=== PATIENT | female | born 1930 | race Hispanic/Latino ===

== ENCOUNTER 2017-08-13 12:59 | Inpatient (IN) | payer MEDICARE, OTHER ==
[2017-08-13] MEDS ORDERED: Albuterol-Ipratrop 3 mg / 0.5 (3 ml) UD IH STA ×4 (13:46→15:43)
[2017-08-13 15:00] LABS: VENOUS BLOOD GAS BASE EXCESS 1.9 mmol/L (0.0-2.0); VENOUS BLOOD GAS PO2 39 mm/Hg (30-55); VENOUS BLOOD PH 7.26 (7.32-7.43)
[2017-08-13 15:01] LABS: BASO # 0.05 K/mm3 (0.0-2.0); BASO % 0.6 % (0.0-3.0); EOS # 0.5 (0.0-0.7); GRAN # 3.79 (1.4-6.5); GRAN % 46.4 % (50.0-68.0); HEMOGLOBIN 12.9 g/dL (12.0-16.0); LYMPH # 3.2 (1.2-3.4); LYMPH % 38.7 % (22.0-35.0); MEAN CELL VOLUME 96.6 fl (80.0-105.0); MEAN CORPUSCULAR HEMOGLOBIN 31.7 pg (25.0-35.0); MEAN CORPUSCULAR HGB CONC 32.8 g/dl (31.0-37.0); MEAN PLATELET VOLUME 10.2 fl (7.0-11.0); MONO # 0.7 (0.1-0.6); MONO % 8.3 % (1.0-6.0); RBC 4.07 10^6/uL (3.5-6.1); RED CELL DISTRIBUTION WIDTH 14.2 % (11.5-14.5); WHITE BLOOD COUNT 8.2 10^3/ul (4.5-11.0)
--- NOTE | 2017-08-13 15:04 | CT ---
PROCEDURE: CT Chest without contrast HISTORY: shortness of breath/cough COMPARISON: None. TECHNIQUE: Contiguous axial images were obtained through the chest without intravenous contrast enhancement. Sagittal and coronal reconstructions were performed. Radiation dose (DLP): 347 mGy-cm. This CT exam was performed using one or more of the following dose reduction techniques: Automated exposure control, adjustment of the mA and/or kV according to patient size, and/or use of iterative reconstruction technique. FINDINGS: LUNGS: The lungs have a hyper expanded appearance with an increased AP diameter of the chest and flattening of the diaphragms. Findings consistent with COPD. Parenchymal scarring is seen in both lung apices MEDIASTINUM: Unremarkable thoracic aorta. No aneurysm. Normal sized heart. Main pulmonary artery unremarkable. No vascular congestion. No lymphadenopathy. PLEURA: No pleural fluid. No pneumothorax. BONES: No fracture. No destructive lesion. UPPER ABDOMEN: There is calcification of the gallbladder wall OTHER FINDINGS: None. IMPRESSION: The lungs have a hyper expanded appearance with an increased AP diameter of the chest and flattening of the diaphragms. Findings consistent with COPD. Parenchymal scarring is seen in both lung apices
[2017-08-13 15:09] LABS: ALB/GLOB RATIO 1.1 (1.1-1.8); ALBUMIN 3.9 g/dL (3.0-4.8); ALT/SGPT 22 U/L (7-56); AST/SGOT 25 U/L (14-36); BLOOD UREA NITROGEN 19 mg/dL (7-21); CALCIUM 9.4 mg/dL (8.4-10.5); GFR AFRICAN-AMERICAN > 60; GFR NON-AFRICAN AMERICAN 60
[2017-08-13 15:13] LABS: INR 1.08 (0.93-1.08); PROTHROMBIN TIME 12.3 SECONDS (9.4-12.5)
[2017-08-13 15:14] LABS: PARTIAL THROMBOPLASTIN TIME 28.9 Seconds (25.1-36.5)
[2017-08-13 15:21] LABS: B-TYPE NATRIURETIC PEPTIDE 304 pg/mL (0-450); TROPONIN I < 0.01 ng/mL
[2017-08-13] MEDS ORDERED: Azithromycin 500MG/NS 250ml 500 MG/250 ML BAG IVPB STA (15:43)
--- NOTE | 2017-08-13 16:04 | ED PDOC ---
Arrival/HPI - General Chief Complaint: Shortness Of Breath Time Seen by Provider: 08/13/17 13:45 Historian: Patient - History of Present Illness Narrative History of Present Illness (Text): 08/13/17 16:00 87yo female with Past medical history of hypertension, COPD present with 2days history of nonproductive cough and shortness of breath. the daughter by the bedside states patient used her inhaler yesterday with mild relieve. She denies fever, chills, sick contact, recent travel, LE edema, calf pain, nausea, abdominal pain. Past Medical History - Provider Review Nursing Documentation Reviewed: Yes - Infectious Disease Hx of Infectious Diseases: None - Reproductive Menopause: Yes - Cardiac Hx Cardiac Disorders: No - Pulmonary Hx Chronic Obstructive Pulmonary Disease (COPD): Yes Hx Emphysema: Yes - Endocrine/Metabolic Hx Hypothyroidism: Yes - Hematological/Oncological Hx Cancer: Yes - Psychiatric Hx Substance Use: No - Surgical History Hx Orthopedic Surgery: Yes - Anesthesia Hx Anesthesia: No Family/Social History - Physician Review Nursing Documentation Reviewed: Yes Family/Social History: Unknown Family HX Smoking Status: Unknown If Ever Smoked Hx Alcohol Use: No Hx Substance Use: No Allergies/Home Meds Allergies/Adverse Reactions: Allergies No Known Allergies Allergy (Verified 05/25/13 19:32) Home Medications: Home Meds Medication Instructions Recorded Confirmed Aspirin [Ecotrin] 81 mg PO DAILY 08/13/17 08/13/17 Atorvastatin [Lipitor] 20 mg PO DAILY 08/13/17 08/13/17 Cefuroxime Axetil [Cefuroxime] 500 mg PO 08/13/17 Clopidogrel [Plavix] 75 mg PO DAILY 08/13/17 08/13/17 Levothyroxine [Synthroid] 0.1 mg PO DAILY 08/13/17 08/13/17 Prednisone [[place]] 5 mg PO DAILY 08/13/17 08/13/17 Review of Systems - Physician Review All systems were reviewed & negative as marked: Yes - Review of Systems Constitutional: Normal Eyes: Normal ENT: Normal Respiratory: SOB, Cough, Wheezing. absent: Sputum Cardiovascular: Normal Gastrointestinal: Normal Genitourinary Female: Normal Musculoskeletal: Normal Skin: Normal Neurological: Normal Endocrine: Normal Hemo/Lymphatic: Normal Psychiatric: Normal Physical Exam Vital Signs Reviewed: Yes Vital Signs Temp Pulse Resp BP Pulse Ox 08/13/17 16:49 76 18 114/55 L 99 08/13/17 13:53 97.8 F 73 20 154/94 H 95 08/13/17 13:50 97.6 F 73 20 155/83 H 91 L Temperature: Afebrile Blood Pressure: Normal Pulse: Regular Respiratory Rate: Normal Appearance: Positive for: Well-Appearing, Non-Toxic, Comfortable Pain Distress: None Mental Status: Positive for: Alert and Oriented X 3 - Systems Exam Head: Present: Atraumatic, Normocephalic Pupils: Present: PERRL Extroacular Muscles: Present: EOMI Conjunctiva: Present: Normal Mouth: Present: Moist Mucous Membranes Neck: Present: Normal Range of Motion Respiratory/Chest: Present: Good Air Exchange, Wheezes (Diffuse expiratory wheeze), Rales (scattered). No: Respiratory Distress, Accessory Muscle Use, Decreased Breath Sounds, Retracting, Rhonchi, Tachypneic Cardiovascular: Present: Regular Rate and Rhythm, Normal S1, S2. No: Murmurs Abdomen: No: Tenderness, Distention, Peritoneal Signs Back: Present: Normal Inspection Upper Extremity: Present: Normal Inspection. No: Cyanosis, Edema Lower Extremity: Present: Normal Inspection. No: Edema Neurological: Present: GCS=15, CN II-XII Intact, Speech Normal Skin: Present: Warm, Dry, Normal Color. No: Rashes Psychiatric: Present: Alert, Oriented x 3, Normal Insight, Normal Concentration Medical Decision Making ED Course and Treatment: 08/13/17 20:31 Pt in Emergency department for stated history. She continue to wheeze in Emergency department after medication. Lab was unremarkable. EKG : sinus rhythm with 1st degree AV block @72bpm. Case was DW Dr. Chan, while he was in and saw pt by the bedside. He requested chest CT. Chest CT - COPD. Dr. Velasquez agrees with plan to admit pt. - Lab Interpretations Lab Results: 08/13/17 14:30 08/13/17 14:30 Lab Results 08/13/17 14:30: Sodium 146, Chloride 107, Potassium 3.9, Carbon Dioxide 30, Anion Gap 12, BUN 19, Creatinine 0.9, Est GFR ( Amer) > 60, Est GFR (Non- Af Amer) 60, Random Glucose 101, Calcium 9.4, Magnesium 1.7, Total Bilirubin 0.5 , AST 25, ALT 22, Alkaline Phosphatase 127 H, Lactate Dehydrogenase 504, Total Creatine Kinase 35, Troponin I < 0.01, NT-Pro-B Natriuret Pep 304, Total Protein 7.3, Albumin 3.9, Globulin 3.5, Albumin/Globulin Ratio 1.1 08/13/17 14:30: pO2 39, VBG pH 7.26 L, VBG pCO2 69.0 H*, VBG HCO3 31.0 H, VBG Total CO2 33.1 H, VBG O2 Sat (Calc) 72.2 H, VBG Base Excess 1.9, VBG Potassium 3.6, Sodium 141.0, Chloride 107.0, Glucose 104, Lactate 1.7, FiO2 21.0, Venous Blood Potassium 3.6 08/13/17 14:30: PT 12.3, INR 1.08, APTT 28.9 08/13/17 14:30: WBC 8.2, RBC 4.07, Hgb 12.9, Hct 39.3, MCV 96.6, MCH 31.7, MCHC 32.8, RDW 14.2, Plt Count 196, MPV 10.2, Gran % 46.4 L, Lymph % (Auto) 38.7 H, Ward % (Auto) 8.3 H, Eos % (Auto) 6.0 H, Baso % (Auto) 0.6, Gran # 3.79, Lymph # (Auto) 3.2, Ward # (Auto) 0.7 H, Eos # (Auto) 0.5, Baso # (Auto) 0.05 - RAD Interpretation Radiology Orders: 08/13/17 13:46 CHEST W/O CONTRAST [CT] Stat - Medication Orders Current Medication Orders: Albuterol/Ipratropium (Duoneb 3 Mg/0.5 Mg (3 Ml) Ud) 3 ml IH Q4H PRN PRN Reason: Shortness of Breath Albuterol/Ipratropium (Duoneb 3 Mg/0.5 Mg (3 Ml) Ud) 3 ml IH Q4H PRN PRN Reason: Wheezing Albuterol/Ipratropium (Duoneb 3 Mg/0.5 Mg (3 Ml) Ud) 3 ml IH [id number] [facility] Aspirin (Ecotrin) 81 mg PO DAILY [facility] Atorvastatin Calcium (Lipitor) 20 mg PO DIN DERICK Clopidogrel Bisulfate (Plavix) 75 mg PO DAILY [facility] Ceftriaxone Sodium (Rocephin 1 Gram Ivpb) 1 gm in 100 mls @ 100 mls/hr IVPB DAILY DERICK PRN Reason: Protocol Azithromycin (Zithromax 500mg In Ns) 500 mg in 250 mls @ 167 mls/hr IVPB DAILY DERICK PRN Reason: Protocol Levothyroxine Sodium (Synthroid) 100 mcg PO DAILY [facility] Methylprednisolone (Solu-Medrol) 40 mg IV Q8H DERICK Discontinued Medications Albuterol/Ipratropium (Duoneb 3 Mg/0.5 Mg (3 Ml) Ud) 3 ml IH STAT STA Stop: 08/13/17 13:47 Last Admin: 08/13/17 14:12 Dose: 3 ml Albuterol/Ipratropium (Duoneb 3 Mg/0.5 Mg (3 Ml) Ud) 3 ml IH STAT STA Stop: 08/13/17 13:49 Last Admin: 08/13/17 14:22 Dose: 3 ml Albuterol/Ipratropium (Duoneb 3 Mg/0.5 Mg (3 Ml) Ud) 3 ml IH STAT STA Stop: 08/13/17 14:33 Last Admin: 08/13/17 14:40 Dose: 3 ml Albuterol/Ipratropium (Duoneb 3 Mg/0.5 Mg (3 Ml) Ud) 3 ml IH STAT STA Stop: 08/13/17 15:44 Last Admin: 08/13/17 16:41 Dose: 3 ml Azithromycin (Zithromax 500mg In Ns) 500 mg in 250 mls @ 167 mls/hr IVPB STAT STA PRN Reason: Protocol Stop: 08/13/17 17:12 Last Admin: 08/13/17 16:41 Dose: 167 mls/hr eMAR Start Stop Document 08/13/17 16:41 LA (Rec: 08/13/17 16:41 LA [id number]) Intravenous Solution Start Date 08/13/17 Start Time 16:41 End Date 08/13/17 End time 18:11 Total Infusion Time 90 Methylprednisolone (Solu-Medrol) 125 mg IVP STAT STA Stop: 08/13/17 13:47 Last Admin: 08/13/17 14:31 Dose: 125 mg IVP Administration Document 08/13/17 14:31 LA (Rec: 05/16/18 14:35 OLIVIA [id number]) Charges for Administration # of IVP Administrations 1 Disposition/Present on Arrival - Present on Arrival Any Indicators Present on Arrival: No History of DVT/PE: No History of Uncontrolled Diabetes: No Urinary Catheter: No History of Decub. Ulcer: No History Surgical Site Infection Following: None - Disposition Have Diagnosis and Disposition been Completed?: Yes Diagnosis: COPD exacerbation Disposition: HOSPITALIZED Disposition Time: 15:30 Patient Plan: Admission Patient Problems: Current Active Problems Problem Status Onset COPD exacerbation Acute Condition: FAIR
[2017-08-13] MEDS ORDERED: Albuterol-Ipratrop 3 mg / 0.5 (3 ml) UD IH PRN ×2 (18:15)
--- NOTE | 2017-08-13 21:40 | CARD ---
APPROVED REPORT EKG Measurement Heart [id number] <Conclusion> Sinus rhythm with 1st degree AV block Otherwise normal ECG
[2017-08-13] MEDS ORDERED: MethylPREDNISolone 40 mg Vial IV SCH (22:00)
[2017-08-13] MEDS: Albuterol-Ipratrop 3 mg / 0.5 (3 ml) UD IH SCH (23:11)
[2017-08-14] MEDS: Albuterol-Ipratrop 3 mg / 0.5 (3 ml) UD IH SCH ×2 (03:04→07:34)
--- NOTE | 2017-08-14 04:04 | HP ---
HISTORY OF PRESENT ILLNESS: Patient is seen in the emergency room. She presented with shortness of breath, wheezing. She states she is being coughing and has been sick for 3 to 4 days. She has had outpatient prescription for antibiotic, which was Ceftin 250 mg every 8 hours. Patient has been treated with bronchodilators, steroid. Patient has no fever. She has continuous persistent cough. Patient's respirations unlabored at the time of evaluation. PAST MEDICAL HISTORY: Significant that she has history of chronic lung disease, she has a history of hypertension, atherosclerotic heart disease. 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 Patient has also osteoarthritis. She has had knee surgery. Patient has had lumbar neuritis. Patient has had past history of TIA, cerebrovascular disease with many infarcts. MEDICATIONS AT HOME: Consists of Lipitor 20 mg daily, aspirin 81 mg daily, prednisone 5 mg daily, Plavix 75 mg daily, Synthroid 0.1 mg daily. Patient was on penicillin recently, which was Ceftin (cefuroxime) 500 mg p.o. every 8 hours. PHYSICAL EXAMINATION: GENERAL: The patient is sitting up, uncomfortable to lie down. Patient's color appears to be slightly cooney. VITAL SIGNS: O2 sat was 91 on room air and it was improved to 99% on 2 liters of oxygen. NECK: The thyroid is not enlarged. Carotid pulses are present. JVP is flat. LUNGS: Trachea is central. Breath sounds are vesicular. Basal crepitations and rhonchi heard bilaterally. No localizing signs. HEART: Normal sinus rhythm. Heart rate is 76. No murmurs. No rubs. ABDOMEN: Soft. Liver and spleen not palpable. No ascites. No tenderness. CENTRAL NERVOUS SYSTEM: Patient is conscious, rational and oriented. Patient's cranial nerves are intact from II through XII. She has no definite weakness of either the right or the left side of the arm and leg, but she does have some difficulty in ambulation due to osteoarthritis. She walks with a walker with a help of a rollator and she lives by herself. LABORATORY DATA: The patient's lab work done in the emergency room showed a white count of 8200. She has 46% granulocytes, 38% lymphocytes. Chemistry: The sodium is 146. Patient's alkaline phosphatase 127. BUN and creatinine are within normal limits. Patient's troponin level was not significant at this time. Patient's BNP was 304, which is good. The patient is admitted to the hospital for treatment and evaluation. DIAGNOSIS: Chronic obstructive lung disease with exacerbation. PLAN: We will put the patient on antibiotic respiratory treatment. We will have the patient be seen by Pulmonary cosmetic sales consultant. A referral will be made to Dr. Charlton. He is a Medical Genetics Director. Patient will be put on heart healthy diet and the antibiotics at this time. The patient is on Zithromax 500 mg every 24 hours. We will add penicillin to the antibiotic as the patient needs broad coverage. Her prognosis is guarded, but her condition is clinically not critical. Patient needs acute management at the moment. She is also going to be on Solu-Medrol every 8 hours for now and will be decreased steadily prior to discharge. We will keep the patient on oxygen 2 liter via inhalation nasal cannula. Herb Chan MD
[2017-08-14 07:25] LABS: GRAN # 6.44 (1.4-6.5); GRAN % 87.3 % (50.0-68.0); HEMOGLOBIN 11.7 g/dL (12.0-16.0); LYMPH # 0.8 (1.2-3.4); LYMPH % 10.4 % (22.0-35.0); MEAN CELL VOLUME 94.9 fl (80.0-105.0); MEAN CORPUSCULAR HEMOGLOBIN 31.3 pg (25.0-35.0); MEAN PLATELET VOLUME 10.3 fl (7.0-11.0); MONO # 0.2 (0.1-0.6); MONO % 2.3 % (1.0-6.0); RBC 3.74 10^6/uL (3.5-6.1); RED CELL DISTRIBUTION WIDTH 14.3 % (11.5-14.5); WHITE BLOOD COUNT 7.4 10^3/ul (4.5-11.0)
[2017-08-14 07:49] LABS: ALBUMIN 3.4 g/dL (3.0-4.8); ALT/SGPT 18 U/L (7-56); AST/SGOT 23 U/L (14-36); BLOOD UREA NITROGEN 17 mg/dL (7-21); CALCIUM 9.4 mg/dL (8.4-10.5); GFR AFRICAN-AMERICAN > 60; GFR NON-AFRICAN AMERICAN > 60
[2017-08-14 08:58] VITALS: BMI 27.4
--- NOTE | 2017-08-14 11:28 | PN ---
DATE: 08/14/2017 SUBJECTIVE: The patient was admitted via the emergency room yesterday. She presented with shortness of breath, wheezing and she says she was unable to sleep because of persistent cough. The patient has history of chronic lung disease. The patient has history of atherosclerotic heart disease, cerebrovascular disease, lumbar neuritis, hypothyroidism, peripheral neuritis. The patient also has history of prior surgery for oral cancer and also prior medical chemotherapy treatment for carcinoid in the liver, which is a solitary carcinoid malignant that was treated in the [facility] in [place] and the patient's treatments have stopped. The patient is doing well with both these neoplastic lesions. THE PATIENT IS ALLERGIC TO LEVOFLOXACIN. The patient also is on Plavix for a long period of time because of recurrent TIAs. The patient's CAT scan shows evidence of small infarcts in the brain. The patient is seen this morning. She says she was not able to sleep. She has insomnia and then she also says that she has some shortness of breath with wheezing, is improved somewhat. PHYSICAL EXAMINATION: VITAL SIGNS: The pulse is 89. The patient's pulse was 100 when I took it. The patient just had treatment with albuterol and DuoNeb for her bronchodilatation. The patient's blood pressure is 120/51, respirations are 20. The patient's heart rate as mentioned was 90 to 100. The patient's O2 sat was 92% on room air and the patient is 99% on 2 L of oxygen. HEENT: Head is normocephalic. NECK: No enlargement of the thyroid. The JVP is flat. LUNGS: Trachea is central. Breath sounds are vesicular. There are rhonchi and wheezing present, left greater than right. The patient's breath sounds are diminished bilaterally. HEART: Normal sinus rhythm, sinus tachycardia. ABDOMEN: Soft. Liver and spleen not palpable. CENTRAL NERVOUS SYSTEM: The patient is conscious, rational and oriented. MEDICATIONS: The patient's list of medications consists of Ambien 5 mg at bedtime that was placed today. The patient is going to be placed on Brovana because the patient is reacting to the albuterol with tachycardia. The DuoNeb will have to be discontinued at this time. The patient will be placed on Xopenex. The patient is on aspirin. The patient is on Plavix, Lipitor, Pulmicort twice a day together with Brovana. The patient also gets Rocephin 1 g every 24 hours, Solu-Medrol 40 mg IV every 12 hours. The patient also get Synthroid 100 mcg and the patient's antibiotic is Zithromax 500 mg IV daily. PLAN: The patient was seen by the [employer]. The patient's condition is improving. We will make the changes with the medical plan and treatment and we will follow up. The steroid has been decreased to twice a day today and we will probably need to decrease it until the patient's wheezing and respiratory distress is diminished. Herb Chan MD
[2017-08-14] MEDS: MethylPREDNISolone 40 mg Vial IVP SCH ×2 (11:48→21:33)
[2017-08-14] MEDS: Levothyroxine 100 MCG TAB PO SCH (11:48)
[2017-08-14] MEDS: cefTRIAXone 1 gm 1 GM/100 ML BAG IVPB SCH (11:52)
[2017-08-14] MEDS: Azithromycin 500MG/NS 250ml 500 MG/250 ML BAG IVPB SCH (11:54)
--- NOTE | 2017-08-14 14:22 | CON ---
DATE: 08/14/2017 PULMONARY CONSULTATION REASON FOR CONSULTATION: Chronic obstructive pulmonary disease. REFERRING PHYSICIAN: Dr. Chan. HISTORY OF PRESENT ILLNESS: The patient is an 87-year-old female, with past medical history significant for chronic obstructive pulmonary disease, hypertension, atherosclerotic heart disease, oral carcinoma (status post treatment), who presents to [facility] with a four-day history of worsening shortness of breath at rest, dyspnea on exertion, and cough. There is no history of sputum production. There is no history of chest pain, coughing up of blood, or chest pain - made worse with deep respirations. There is no history of temperatures, chills or infectious exposure. There is no history of night sweats, weight loss or appetite change prior to the above events. No history of leg or calf pains. No history of syncope or diaphoresis. No history of recent travel or trauma. REVIEW OF SYSTEMS: No history of nausea, vomiting or diarrhea. No acute urinary symptoms. No new neurologic or musculoskeletal complaints. Rest of the review of systems negative. ALLERGIES: NO KNOWN ALLERGIES. SOCIAL HISTORY: Positive for tobacco and negative for alcohol. FAMILY HISTORY: No inheritable diseases. HOME MEDICATIONS: Include Synthroid, Lipitor, Ecotrin, prednisone, Plavix and cefuroxime. PHYSICAL EXAMINATION: GENERAL: The patient appears comfortable this morning. She is not short of breath at rest. VITAL SIGNS: Temperature is 98.4, pulse 90, respirations 18/20, blood pressure 120/51. Oxygen saturation on room air is 92%-95%. Oxygen saturation on nasal cannula is 97%-99%. HEENT: Normocephalic, atraumatic. No JVD. CARDIOVASCULAR: Systolic ejection murmur at the lower left sternal border. No S3 gallop. LUNGS: Decreased breath sounds at the bases. Mild rhonchi and wheezing bilaterally are appreciated. EXTREMITIES: No clubbing, cyanosis or edema. Calves are nontender to palpation. GASTROINTESTINAL: Abdomen is soft, nontender and nondistended. Bowel sounds are positive. SKIN: No acute rash. NEUROLOGIC: Limited at the present time. PERTINENT LABORATORY DATA: CAT scan of the chest was done yesterday and reviewed. Findings are consistent with chronic obstructive pulmonary disease. There is also parenchymal scarring seen in both lung apices. There is no lymphadenopathy. CBC: White count 8.2K, hemoglobin 12.9, hematocrit 39.3, platelets of 196,000. Complete metabolic profile: Alkaline phosphatase 127. Rest of the metabolic profile is within normal limits. IMPRESSION: 1. Acute bronchitis. 2. Chronic obstructive pulmonary disease. 3. Atherosclerotic heart disease. 4. Hypertension. PLAN: The patient presents to [facility] with a four-day history of worsening pulmonary symptoms. There is no history of fevers or infectious exposure. I did review the CAT scan of the chest. It is noted above. It shows no acute abnormalities. On physical exam, the patient is in mild bronchospasm. I will continue with the current nebulizer treatments for now. I will also try decreasing the intravenous steroids this morning, as well as add inhaled steroids (Pulmicort). In addition, there is no significant alveolar-arterial gradient. Oxygen saturation on room air is 92%-95%. Oxygen saturation on nasal cannula is 97%-99%. The patient remains on antibiotic therapy. There are no temperatures noted. There is no leukocytosis. Given the above CAT scan, we can probably taper down the antibiotic coverage at this point in time. The patient does feel better, and is clinically improved this morning. I have advised the patient to be out of bed as much as possible. I will discuss the above with Dr. Chan this morning. Thank you very much for this pulmonary consultation. Riki Charlton MD DANA
[2017-08-14] MEDS: Arformoterol 15 mcg/2 ml Inh Sol IH SCH (20:53)
[2017-08-14] MEDS: Budesonide 0.5 mg/2 ml Inhal Susp UD IH SCH (20:53)
[2017-08-15] MEDS: Budesonide 0.5 mg/2 ml Inhal Susp UD IH SCH ×2 (08:01→21:45)
[2017-08-15] MEDS: Arformoterol 15 mcg/2 ml Inh Sol IH SCH ×2 (08:01→21:45)
[2017-08-15] MEDS: Albuterol-Ipratrop 3 mg / 0.5 (3 ml) UD IH SCH ×3 (08:02→21:45)
[2017-08-15] MEDS: Levothyroxine 100 MCG TAB PO SCH (09:45)
[2017-08-15] MEDS: MethylPREDNISolone 40 mg Vial IVP SCH ×2 (09:46→21:27)
[2017-08-15] MEDS: cefTRIAXone 1 gm 1 GM/100 ML BAG IVPB SCH (09:46)
[2017-08-15] MEDS ORDERED: Magnesium Hydroxide Susp 30 ml UD PO ONE (11:42)
[2017-08-15] MEDS: Azithromycin 500MG/NS 250ml 500 MG/250 ML BAG IVPB SCH (12:10)
[2017-08-15] MEDS: Levalbuterol 0.63 MG/3 ML Inhal Soln UD IH PRN (14:02)
--- NOTE | 2017-08-15 17:18 | CP.PCM.PN ---
Subjective - Date & Time of Evaluation Date of Evaluation: 08/15/17 Time of Evaluation: 11:20 - Subjective Subjective: Patient is seen this morning. She complains of constipation and phlegm. Objective - Vital Signs/Intake and Output Vital Signs (last 24 hours): Temp Pulse Resp BP Pulse Ox 98.2 F 60 20 128/78 97 08/15/17 06:00 08/15/17 06:00 08/15/17 06:00 08/15/17 06:00 08/15/17 06:00 - Medications Medications: Current Medications Albuterol/Ipratropium (Duoneb 3 Mg/0.5 Mg (3 Ml) Ud) 3 ml IH TIDRESP [facility] Last Admin: 08/15/17 08:02 Dose: 3 ml Arformoterol Tartrate (Brovana) 15 mcg IH [id number] [facility] Last Admin: 08/15/17 08:01 Dose: 15 mcg Aspirin (Ecotrin) 81 mg PO DAILY [facility] Last Admin: 08/15/17 09:45 Dose: 81 mg Atorvastatin Calcium (Lipitor) 20 mg PO DIN [facility] Last Admin: 08/14/17 18:28 Dose: 20 mg Azithromycin (Zithromax) 500 mg PO DAILY [facility] Stop: 08/17/17 10:01 Budesonide (Pulmicort Respules) 0.5 mg IH [id number] [facility] Last Admin: 08/15/17 08:01 Dose: 0.5 mg Cefpodoxime Proxetil (Vantin) 200 mg PO Q12 [facility] Stop: 08/16/17 10:59 Clopidogrel Bisulfate (Plavix) 75 mg PO DAILY [facility] Last Admin: 08/15/17 09:45 Dose: 75 mg Docusate Sodium (Colace) 100 mg PO TID [facility] Last Admin: 08/15/17 14:54 Dose: 100 mg Levalbuterol HCl (Xopenex) 0.63 mg IH Q4H PRN PRN Reason: Shortness of Breath Last Admin: 08/15/17 14:02 Dose: 0.63 mg Levothyroxine Sodium (Synthroid) 100 mcg PO DAILY [facility] Last Admin: 08/15/17 09:45 Dose: 100 mcg Methylprednisolone (Solu-Medrol) 30 mg IVP Q12 [facility] Last Admin: 08/15/17 09:46 Dose: 30 mg Zolpidem Tartrate (Ambien) 5 mg PO HS PRN; Protocol PRN Reason: Insomnia Last Admin: 08/14/17 21:32 Dose: 5 mg - Labs Labs: PT 12.3 SECONDS (9.4-12.5) 08/13/17 14:30 INR 1.08 (0.93-1.08) 08/13/17 14:30 APTT 28.9 Seconds (25.1-36.5) 08/13/17 14:30 - Head Exam Head Exam: ATRAUMATIC, NORMOCEPHALIC - Respiratory Exam Respiratory Exam: Wheezes - Cardiovascular Exam Cardiovascular Exam: REGULAR RHYTHM, +S1, +S2 - GI/Abdominal Exam GI & Abdominal Exam: Soft, Normal Bowel Sounds. absent: Tenderness - Neurological Exam Neurological Exam: Alert, Awake, Oriented x3 Assessment and Plan - Assessment and Plan (Free Text) Assessment: COPD exacerbation HTN ASHD Plan: Patient has been seen by pulmonary. She is on nebulizers treatments, IV steroids and antibiotics. Will order chest physiotherapy. Patient complains of constipation. Will order Colace twice a day. Patient to have physical therapy evaluation.
[2017-08-16] MEDS: Arformoterol 15 mcg/2 ml Inh Sol IH SCH ×2 (08:27→19:55)
[2017-08-16] MEDS: Budesonide 0.5 mg/2 ml Inhal Susp UD IH SCH ×2 (08:28→19:55)
[2017-08-16] MEDS: Albuterol-Ipratrop 3 mg / 0.5 (3 ml) UD IH SCH (08:28)
[2017-08-16] MEDS ORDERED: Cefpodoxime (Vantin) 200 mg Tab PO SCH (10:00)
[2017-08-16] MEDS: MethylPREDNISolone 40 mg Vial IVP SCH (10:06)
[2017-08-16] MEDS: Levothyroxine 100 MCG TAB PO SCH (10:06)
--- NOTE | 2017-08-16 11:53 | PN ---
DATE: 08/16/2017 PULMONARY PROGRESS NOTE SUBJECTIVE: The patient is markedly improved since admission to the hospital. She remains on inhaled bronchodilators and corticosteroids. She is markedly improved. Her wheezing has abated. There are intermittent episodes of bronchospasm, which resolved with inhalation therapy. The patient has a history of COPD and has not been on consistent inhalation therapy at home. She is better at this point in the hospital. OBJECTIVE: VITAL SIGNS: Stable. She is afebrile. Blood pressure 130/70, heart rate 70, respiratory rate 16, O2 sat 98% on supplemental oxygen. NECK: Supple. No jugular venous distention. No lymphadenopathy. CARDIOVASCULAR: Regular rhythm. S1, S2. Soft systolic ejection murmur at the lower left sternal border. CHEST: Global decrease in breath sounds. No rhonchi appreciated today. Wheezing is gone. ABDOMEN: Soft. Bowel sounds normoactive without mass, guarding, rebound or organomegaly. EXTREMITIES: Reveal no clubbing, cyanosis or edema. There is no Homans' sign. SKIN: Warm and dry. No rash or excoriation. NEUROLOGIC: No focal findings. LABORATORY DATA: CAT scan reviewed. Significant evidence of airway air trapping. Parenchymal scarring. No lymphadenopathy. IMPRESSION: 1. Status post bronchitis. 2. Chronic obstructive pulmonary disease - moderate. 3. Atherosclerotic heart disease. PLAN: The patient is doing well and medications will be tapered. The patient will require pulmonary followup as an outpatient after discharge. She will require consistent outpatient therapy with inhalation therapy. Pulmonary physiotherapy maybe indicated for long-term improvement of her general status. We will discuss with Dr. Charlton when he see the patient next. Close followup over the weekend. We will follow closely with you as necessary. Thank you for the opportunity to see this anuj patient. Alberto Palma MD
--- NOTE | 2017-08-16 14:03 | PN ---
DATE: 08/16/2017 LOCATION: The patient is in [facility], room 577, bed 1. SUBJECTIVE: She is an 87-year-old white female. She has history of chronic obstructive lung disease, bronchiectasis. The patient has history of hypertension, atherosclerotic heart disease, cerebrovascular disease. She is admitted with exacerbation of COPD, bronchitis, and wheezing associated with bronchitis. The patient is seen this morning. She has a cough and intermittent episodes of coughing with shortness of breath. PHYSICAL EXAMINATION: VITAL SIGNS: The patient's pulse is 73, blood pressure 152/87, respirations are 20. The patient's O2 sat is 98% on room air. The patient's temperature is 98. HEENT: The patient's head is normocephalic. NECK: The thyroid is not enlarged. JVP is flat. Carotid pulses are present. LUNGS: Trachea is central. Breath sounds vesicular with rhonchi and wheezing noted. No localizing signs. HEART: Normal sinus rhythm, S1 and S2 present. ABDOMEN: Soft. Liver and spleen not palpable. CENTRAL NERVOUS SYSTEM: The patient is conscious, rationale, and oriented. The patient's cranial nerves are intact. Motor and sensory functions are within normal limits. The patient does have lumbar neuritis for which she has had antiinflammatory medication. MEDICATIONS: The patient's list of medicines: Currently, the patient is on Ambien for sleep. The patient is on Brovana and budesonide for respiratory treatment. The patient gets Plavix 75 mg daily, Lipitor 20 mg daily, aspirin 81 mg daily, Colace for constipation. The patient is on antibiotics, doxycycline and Vantin. The patient also gets methylprednisolone, which is Solu-Medrol 30 mg IV every 12 hours. We will decrease the dose to respiratory treatments and antibiotics at this time. The patient also gets respiratory treatment associated with the physical therapy. Her condition is improving. Her overall prognosis is guarded. The patient will be maintained on current management and we will follow up. Herb Chan MD
[2017-08-16] MEDS: Levalbuterol 0.63 MG/3 ML Inhal Soln UD IH PRN (23:15)
[2017-08-17] MEDS ORDERED: Promethazine/Cod 6.25mg-10mg/5ml Syr UD PO PRN (08:36)
--- NOTE | 2017-08-17 08:41 | CP.PCM.PN ---
Subjective - Date & Time of Evaluation Date of Evaluation: 08/17/17 Time of Evaluation: 07:20 - Subjective Subjective: Patient is seen this morning. She says that she was coughing all day yesterday and last night. She also complains of wheezing. Objective - Vital Signs/Intake and Output Vital Signs (last 24 hours): Temp Pulse Resp BP Pulse Ox 97.4 F L 73 18 145/73 98 08/17/17 07:35 08/17/17 07:35 08/17/17 07:35 08/17/17 07:35 08/17/17 07:35 Intake and Output: 08/17/17 08/17/17 06:59 18:59 Intake Total 660 Balance 660 - Medications Medications: Current Medications Acetylcysteine (Acetylcysteine 20%) 4 ml IH BIDRESP [facility] Arformoterol Tartrate (Brovana) 15 mcg IH [id number] [facility] Last Admin: 08/16/17 19:55 Dose: 15 mcg Aspirin (Ecotrin) 81 mg PO DAILY [facility] Last Admin: 08/16/17 10:05 Dose: 81 mg Atorvastatin Calcium (Lipitor) 20 mg PO DIN [facility] Last Admin: 08/16/17 17:18 Dose: 20 mg Azithromycin (Zithromax) 500 mg PO DAILY [facility] Stop: 08/17/17 10:01 Last Admin: 08/16/17 10:05 Dose: 500 mg Budesonide (Pulmicort Respules) 0.5 mg IH [id number] [facility] Last Admin: 08/16/17 19:55 Dose: 0.5 mg Clopidogrel Bisulfate (Plavix) 75 mg PO DAILY [facility] Last Admin: 08/16/17 10:05 Dose: 75 mg Docusate Sodium (Colace) 100 mg PO TID [facility] Last Admin: 08/16/17 17:18 Dose: 100 mg Lactulose (Enulose) 10 gm PO ONCE ONE Stop: 08/17/17 08:37 Levalbuterol HCl (Xopenex) 0.63 mg IH Q4H PRN PRN Reason: Shortness of Breath Last Admin: 08/16/17 23:15 Dose: 0.63 mg Levothyroxine Sodium (Synthroid) 100 mcg PO DAILY [facility] Last Admin: 08/16/17 10:06 Dose: 100 mcg Methylprednisolone (Medrol) 16 mg PO BID [facility] Last Admin: 08/16/17 17:18 Dose: 16 mg Promethazine HCl/Codeine (Phenergan/Codeine Oral Syrup) 5 ml PO Q4H PRN PRN Reason: Cough and congestion Zolpidem Tartrate (Ambien) 5 mg PO HS PRN; Protocol PRN Reason: Insomnia Last Admin: 08/17/17 00:52 Dose: 5 mg - Labs Labs: PT 12.3 SECONDS (9.4-12.5) 08/13/17 14:30 INR 1.08 (0.93-1.08) 08/13/17 14:30 APTT 28.9 Seconds (25.1-36.5) 08/13/17 14:30 - Constitutional Appears: No Acute Distress - Head Exam Head Exam: ATRAUMATIC, NORMOCEPHALIC - Respiratory Exam Respiratory Exam: Decreased Breath Sounds, Wheezes, NORMAL BREATHING PATTERN - Cardiovascular Exam Cardiovascular Exam: +S1, +S2 - GI/Abdominal Exam GI & Abdominal Exam: Soft, Normal Bowel Sounds. absent: Tenderness - Neurological Exam Neurological Exam: Alert, Awake, CN II-XII Intact, Oriented x3 Assessment and Plan - Assessment and Plan (Free Text) Assessment: COPD exacerbation Acute Bronchitis Bronchospasm HTN ASHD Plan: Patient is complaining of cough. She is unable to lie flat she says without coughing and wheezing. continue IV steroids. continue respiratory treatments. Will add mucomyst and phenergan with codeine as needed for cough. Patient also complains of constipation. continue Colace and will add Lactulose. Patient may be out of bed ad chip.
[2017-08-17] MEDS: Arformoterol 15 mcg/2 ml Inh Sol IH SCH ×2 (08:56→19:26)
[2017-08-17] MEDS: Budesonide 0.5 mg/2 ml Inhal Susp UD IH SCH ×2 (08:56→19:26)
[2017-08-17] MEDS: Levothyroxine 100 MCG TAB PO SCH (09:51)
[2017-08-17] MEDS: Acetylcysteine 20% Inhal Soln (4ml) IH SCH (19:26)
[2017-08-18 07:00] LABS: BASO # 0.02 K/mm3 (0.0-2.0); BASO % 0.2 % (0.0-3.0); EOS # 0.1 (0.0-0.7); EOS % 0.5 % (1.5-5.0); GRAN # 6.74 (1.4-6.5); GRAN % 63.8 % (50.0-68.0); HEMOGLOBIN 12.4 g/dL (12.0-16.0); LYMPH # 2.7 (1.2-3.4); LYMPH % 25.3 % (22.0-35.0); MEAN CELL VOLUME 95.8 fl (80.0-105.0); MEAN CORPUSCULAR HEMOGLOBIN 30.9 pg (25.0-35.0); MEAN CORPUSCULAR HGB CONC 32.3 g/dl (31.0-37.0); MEAN PLATELET VOLUME 10.2 fl (7.0-11.0); MONO # 1.1 (0.1-0.6); MONO % 10.2 % (1.0-6.0); RBC 4.01 10^6/uL (3.5-6.1); RED CELL DISTRIBUTION WIDTH 14.3 % (11.5-14.5); WHITE BLOOD COUNT 10.6 10^3/ul (4.5-11.0)
[2017-08-18 07:56] VITALS: BP 130/87; PULSE 76; RESP 20; TEMP 98.6; O2SAT 98
[2017-08-18 07:57] LABS: BLOOD UREA NITROGEN 21 mg/dL (7-21); GFR AFRICAN-AMERICAN > 60; GFR NON-AFRICAN AMERICAN > 60
[2017-08-18] MEDS ORDERED: Levalbuterol 1.25 MG/3 ML Inhal Soln UD IH SCH (08:00)
[2017-08-18] MEDS: Budesonide 0.5 mg/2 ml Inhal Susp UD IH SCH (08:23)
[2017-08-18] MEDS: Arformoterol 15 mcg/2 ml Inh Sol IH SCH (08:23)
[2017-08-18] MEDS: Acetylcysteine 20% Inhal Soln (4ml) IH SCH (08:23)
--- NOTE | 2017-08-18 08:54 | PN ---
DATE: 08/18/2017 PULMONARY NOTE SUBJECTIVE: The patient appears comfortable this morning. She is not short of breath at rest. OBJECTIVE: VITAL SIGNS (last noted in the computer): Temperature is 98.4, pulse 81, respirations 18, blood pressure 153/88. Oxygen saturation on nasal cannula is 95%. HEENT: Normocephalic, atraumatic. No JVD. CARDIOVASCULAR: Systolic ejection murmur at the lower left sternal border. No S3 gallop. LUNGS: Improved breath sounds at the bases. Less rhonchi. No wheezing. EXTREMITIES: No clubbing, cyanosis or edema. Calves are nontender to palpation. GI: Abdomen is soft, nontender and nondistended. Bowel sounds are positive. SKIN: No acute rash. NEUROLOGIC: Exam limited at the present time. IMPRESSION: 1. Acute bronchitis. 2. Chronic obstructive pulmonary disease. 3. Atherosclerotic heart disease. 4. Hypertension. PLAN: The patient appears comfortable this morning. She is not short of breath at rest. Her cough is less. She does state to feeling much better overall. On physical exam, her bronchospasm is slowly resolving. In addition, the alveolar-arterial gradient is also slowly resolving. I will continue with the current steroids (changed over the weekend), as well as inhaled steroids. I will also add scheduled Xopenex treatments this morning. The patient remains on inhaled Mucomyst. The clinical status of the patient is significantly improved overall. The patient is advised to be out of bed as much as possible. I will discuss the above with Dr. Chan. Riki Charlton MD MTDD
--- NOTE | 2017-08-18 09:50 | PN ---
DATE: 08/15/2017 PULMONARY NOTE SUBJECTIVE: The patient appears comfortable this morning. She is not short of breath at rest. OBJECTIVE: VITAL SIGNS: Temperature is 98.1, pulse 75, respirations 16, blood pressure 118/60. Oxygen saturation on nasal cannula is 97%. HEENT: Normocephalic, atraumatic. No JVD. CARDIOVASCULAR: Systolic ejection murmur at the lower left sternal border. No S3 gallop. LUNGS: Improved breath sounds at the bases. Much less rhonchi. No wheezing this morning. EXTREMITIES: No clubbing, cyanosis or edema. Calves are nontender to palpation. GASTROINTESTINAL: Abdomen is soft, nontender and nondistended. Bowel sounds are positive. SKIN: No acute rash. NEUROLOGIC: Exam limited at the present time. IMPRESSION: 1. Acute bronchitis. 2. Chronic obstructive pulmonary disease. 3. Atherosclerotic heart disease. 4. Hypertension. PLAN: The patient appears comfortable this morning. She is not short of breath at rest. She does state to feeling much better overall. I did discuss the case with the night nurse at length. The night nurse stated that the patient had a good/uneventful night. On physical exam, there is significantly less bronchospasm. In addition, the oxygen saturation is now 97-100% on nasal cannula. I will continue with the current nebulizer treatments and oral steroids(changed over the weekend ) for now/this morning. The patient remains on antibiotic therapy. There are no temperatures noted. There is no leukocytosis. The clinical status of this patient is significantly improved. The patient is advised to be out of bed most of the day. I will discuss the above with Dr. Chan. Riki Charlton MD MTDBri
[2017-08-18] MEDS: Levothyroxine 100 MCG TAB PO SCH (10:10)
--- NOTE | 2017-08-18 10:51 | PN ---
DATE: 08/18/2017 LOCATION: The patient is in [facility] in [place]. The patient's room is 573, bed 1. SUBJECTIVE: The patient admitted with exacerbation of chronic obstructive lung disease, persistent cough and inability to sleep. The patient has long history of chronic lung disease. The patient was exposed to secondary smoking. The patient has also past history of atherosclerotic heart disease, coronary artery disease, cerebrovascular disease with multiple TIAs. The patient has history of hyperlipidemia. The patient has history of lumbar neuritis. 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 These lesions have been completely resolved. PHYSICAL EXAMINATION: VITAL SIGNS: This morning, pulse is 81, blood pressure 153/88, the patient's respirations are 18, O2 sat is 95% on 2 L of oxygen. LUNGS: The patient is examined. There are diminished breath sounds bilaterally. Occasional wheezing is noted. HEART: Normal sinus rhythm. S1, S2 present. ABDOMEN: Soft. Liver and spleen not palpable. FRANCHISE SALES DIRECTOR: The patient is conscious, rationale, oriented. No focal deficits. ASSESSMENT AND PLAN: The patient is treated with medications. The patient is on Mucomyst with respiratory treatment. She was on Brovana and Pulmicort. The patient is on aspirin, Lipitor, Plavix. The patient is on Synthroid and also Xopenex. The patient clinically is improving. The blood work done shows evidence of today the white count is 10,600 and hemoglobin 12.4. The patient's chemistry, sugar was 120. The patient is on steroid and her elevated blood sugar is probably because of steroid. Other chemical parameters were not unreasonable. The patient's sodium is 148, potassium is 4.8. We will continue current management and follow up. Herb Chan MD
== END 2017-08-18 19:26 | disposition home or self-care (01) | DRG 192 ==
LOC: ED 12:59 → ERH 15:42 → 5RSO 18:47 → OBSVTOIN 08-14 10:08 → 5RSO 08-16 16:02
PROVIDERS: ADMIT Internal Medicine; ATTEND Internal Medicine
PROC: 3E0F7GC Introduction of Other Therapeutic Substance into Respiratory Tract, Via Natural or Artificial Opening (ICD-10-PCS; principal; 2017-08-13)
DX: J44.1 Chronic obstructive pulmonary disease with (acute) exacerbation (principal); J20.9 Acute bronchitis, unspecified; J44.0 Chronic obstructive pulmonary disease with (acute) lower respiratory infection; I10 Essential (primary) hypertension; E03.9 Hypothyroidism, unspecified; I25.10 Atherosclerotic heart disease of native coronary artery without angina pectoris; M54.16 Radiculopathy, lumbar region; I67.9 Cerebrovascular disease, unspecified; G62.9 Polyneuropathy, unspecified; G47.00 Insomnia, unspecified; K59.00 Constipation, unspecified; E78.5 Hyperlipidemia, unspecified; Z86.73 Personal history of transient ischemic attack (TIA), and cerebral infarction without residual deficits; Z79.02 Long term (current) use of antithrombotics/antiplatelets; Z79.82 Long term (current) use of aspirin

== ENCOUNTER 2017-12-26 10:42 | Inpatient (IN) | payer MEDICARE, OTHER ==
[2017-12-26 10:47] VITALS: BMI 26.1
[2017-12-26 10:59] VITALS: RESP 18
[2017-12-26] MEDS ORDERED: Piperacillin/Tazobact 3.375 gm 100 ML IVPB STA (11:40)
[2017-12-26] MEDS ORDERED: Levalbuterol 0.63 MG/3 ML Inhal Soln UD IH STA (11:41)
[2017-12-26] MEDS ORDERED: Ipratropium 0.02% Inhal Soln (0.5 mg/2.5 ml) UD IH STA (11:42)
--- NOTE | 2017-12-26 11:43 | ED PDOC ---
Arrival/HPI - General Chief Complaint: Cough, Cold, Congestion Time Seen by Provider: 12/26/17 11:26 Historian: Patient - History of Present Illness Narrative History of Present Illness (Text): 12/26/17 87 yo female w/PMHx of COPD comes in accompanied by daughter for evaluation of cold sx fr past 2 weeks associated with nasal congestion, " sinuses congestion" dry cough. Pt reports, was seen by PMD DR. Ulloa 2 weeks ago and received antibiotic without improvement in sx. Pt reports, cough worse for past few days, " feels chest is congested, some phlegm, but unable to cough it up". Pt sts, cough is worse overnight, supine. Otherwise, pt denies high fever, chills, headache, dizziness, CP, palpitation, diaphoresis, abd. pain, V/D. Pt admits, called her PMD DR. Ulloa who recommend go to ED for further evaluation. Past Medical History - Provider Review Nursing Documentation Reviewed: Yes - Travel History Have you recently traveled outside [place] w/in the past 3 mons?: No - Infectious Disease Hx of Infectious Diseases: None - Reproductive Menopause: Yes - Cardiac Hx Hypertension: Yes - Pulmonary Hx Chronic Obstructive Pulmonary Disease (COPD): Yes - Endocrine/Metabolic Hx Hypothyroidism: Yes - Hematological/Oncological Hx Cancer: Yes - Musculoskeletal/Rheumatological Hx Arthritis: Yes - Gastrointestinal Other/Comment: Hx oral cancer with radiation - Psychiatric Hx Substance Use: No - Surgical History Hx Orthopedic Surgery: Yes - Anesthesia Hx Anesthesia: No Family/Social History - Physician Review Nursing Documentation Reviewed: Yes Family/Social History: No Known Family HX Smoking Status: Former Smoker Hx Alcohol Use: No Hx Substance Use: No Allergies/Home Meds Allergies/Adverse Reactions: Allergies levofloxacin Adverse Reaction (Intermediate, Verified 12/26/17 13:14) SWELLING R leg neuropathy Home Medications: Home Meds Medication Instructions Recorded Confirmed Aspirin [Ecotrin] 81 mg PO DAILY 08/13/17 12/26/17 Atorvastatin [Lipitor] 20 mg PO DAILY 08/13/17 12/26/17 Clopidogrel [Plavix] 75 mg PO DAILY 08/13/17 12/26/17 Levothyroxine [Synthroid] 0.1 mg PO DAILY 08/13/17 12/26/17 Prednisone [[place]] 5 mg PO DAILY 08/13/17 12/26/17 Amoxicillin 875 mg PO BID 12/26/17 12/26/17 Nebivolol HCl [Bystolic] 2.5 mg PO DAILY 12/26/17 12/26/17 Review of Systems - Review of Systems Constitutional: Fatigue Eyes: Normal ENT: Rhinorrhea, Sinus Congestion Respiratory: SOB, Cough, Wheezing. absent: Sputum Cardiovascular: absent: Chest Pain, Palpitations, Edema Gastrointestinal: Normal. absent: Abdominal Pain, Nausea, Vomiting Genitourinary Female: Normal. absent: Dysuria Musculoskeletal: Normal Skin: Normal. absent: Rash Neurological: Normal Endocrine: Normal Hemo/Lymphatic: Normal Psychiatric: Normal Physical Exam Vital Signs Temp Pulse Resp BP Pulse Ox 12/26/17 10:42 98.7 F 72 18 162/96 H 95 Temperature: Afebrile Blood Pressure: Hypertensive Pulse: Regular Respiratory Rate: Normal Appearance: Positive for: Well-Appearing, Non-Toxic, Comfortable Pain Distress: None Mental Status: Positive for: Alert and Oriented X 3 - Systems Exam Conjunctiva: Present: Normal Ears: Present: NORMAL TM Mouth: Present: Moist Mucous Membranes, Normal Lips. No: Drooling Pharnyx: No: ERYTHEMA Nose (Internal): Present: Rhinorrhea (clear B/L), Other (B/L paranasal sinuses congestion with mild tenderness, no edema or erythema.) Neck: Present: Normal Range of Motion Respiratory/Chest: Present: Clear to Auscultation, Good Air Exchange. No: Respiratory Distress, Accessory Muscle Use Cardiovascular: Present: Regular Rate and Rhythm, Normal S1, S2. No: Murmurs Abdomen: No: Tenderness, Distention, Peritoneal Signs, Rebound, Guarding Upper Extremity: Present: Normal Inspection, Normal ROM. No: Deformity Lower Extremity: Present: NORMAL PULSES, Normal ROM. No: Edema, Deformity Neurological: Present: GCS=15, Speech Normal, Normal Sensory Function, Norm Deep Tendon Reflexes Skin: Present: Warm, Dry, Normal Color. No: Rashes Psychiatric: Present: Alert, Oriented x 3, Normal Insight, Normal Concentration Medical Decision Making ED Course and Treatment: 12/26/17 Pt remained stable during the ED evaluation, not in resp. distress. Pt was seen by PMD, received abx tx for acute bronchitis, COPD exacerbation, failed outpt tx. Blood work review, no evidence of sepsis. Given pt PMHx of COPD, pt's age, failed outpt tx, and clinical findings of diffuse exp. wheezing despite ED tx, admission arranged. Pt was evaluated by pt's PMD DR. Ulloa and admission to his service arranged with Dx: COPD exacerbation, r/o PNA. - RAD Interpretation Radiology Orders: 12/26/17 11:38 CHEST PORTABLE [RAD] Stat (+)?RLL infiltrate - EKG Interpretation Interpreted by ED Physician: Yes - Medication Orders Current Medication Orders: Piperacillin Sod/Tazobactam Sod (Zosyn 3.375 In Ns 100ml) 100 mls @ 200 mls/hr IVPB STAT STA; Protocol Stop: 12/26/17 12:09 Discontinued Medications Levalbuterol HCl (Xopenex) 0.63 mg IH STAT STA Stop: 12/26/17 11:42 Methylprednisolone (Solu-Medrol) 125 mg IVP STAT STA Stop: 12/26/17 11:38 Disposition/Present on Arrival - Present on Arrival Any Indicators Present on Arrival: No History of DVT/PE: No History of Uncontrolled Diabetes: No Urinary Catheter: No History of Decub. Ulcer: No History Surgical Site Infection Following: None - Disposition Have Diagnosis and Disposition been Completed?: Yes Diagnosis: Pneumonia, COPD exacerbation Disposition: HOSPITALIZED Disposition Time: 12:21 Patient Plan: Admission Patient Problems: Current Active Problems Problem Status Onset COPD exacerbation Acute Pneumonia Acute Condition: STABLE
[2017-12-26 11:56] LABS: ARTERIAL BLOOD GAS HCO3 26.2 mmol/L (21-28); ARTERIAL BLOOD GAS HEMOGLOBIN 12.3 g/dL (11.7-17.4); ARTERIAL BLOOD GAS O2 CAPACITY 17.1 mL/dl (16-24); ARTERIAL BLOOD GAS O2 CONTENT 16.6 ML/dl (15-23); ARTERIAL BLOOD GAS O2 SAT 97.3 % (95-98); ARTERIAL BLOOD GAS PCO2 36 mm/Hg (35-45); ARTERIAL BLOOD GAS PH 7.47 (7.35-7.45); ARTERIAL BLOOD GAS TCO2 27.3 mmol.L (22-28)
[2017-12-26 12:06] LABS: BASO # 0.04 K/mm3 (0.0-2.0); BASO % 0.6 % (0.0-3.0); EOS # 0.3 (0.0-0.7); GRAN # 3.75 (1.4-6.5); HEMOGLOBIN 12.3 g/dL (12.0-16.0); LYMPH # 1.9 (1.2-3.4); LYMPH % 28.5 % (22.0-35.0); MEAN CORPUSCULAR HEMOGLOBIN 30.5 pg (25.0-35.0); MEAN CORPUSCULAR HGB CONC 32.1 g/dl (31.0-37.0); MEAN PLATELET VOLUME 10.1 fl (7.0-11.0); MONO # 0.7 (0.1-0.6); MONO % 9.9 % (1.0-6.0); RBC 4.03 10^6/uL (3.5-6.1); WHITE BLOOD COUNT 6.6 10^3/ul (4.5-11.0)
--- NOTE | 2017-12-26 12:13 | RAD ---
Date of service: 12/26/2017 HISTORY: fever, cough COMPARISON: CT chest dated 08/13/2017; chest radiograph dated 11/30/2013. FINDINGS: LUNGS: Stable chronic prominence of the bilateral interstitial markings. No focal consolidation. Evaluation of the medial left apex is limited due to obscuration by the patient's chin PLEURA: No significant pleural effusion identified, no pneumothorax apparent. CARDIOVASCULAR: Atherosclerotic aortic calcifications. Cardiomediastinal silhouette stably enlarged. OSSEOUS STRUCTURES: Unchanged. VISUALIZED UPPER ABDOMEN: Large hiatal hernia redemonstrated. OTHER FINDINGS: None. IMPRESSION: No active disease. Limited evaluation of the left apex medially due to obscuration by the patient's chin
[2017-12-26 12:20] LABS: ALB/GLOB RATIO 1.2 (1.1-1.8); ALBUMIN 3.5 g/dL (3.0-4.8); ALT/SGPT 23 U/L (7-56); AST/SGOT 20 U/L (14-36); BLOOD UREA NITROGEN 16 mg/dL (7-21); CALCIUM 9.4 mg/dL (8.4-10.5); GFR NON-AFRICAN AMERICAN > 60
[2017-12-26 12:21] LABS: INR 1.09; PARTIAL THROMBOPLASTIN TIME 27.5 Seconds (25.1-36.5); PROTHROMBIN TIME 12.5 SECONDS (9.4-12.5)
[2017-12-26 12:23] LABS: URINE BILIRUBIN NEGATIVE (NEGATIVE); URINE BLOOD TRACE-INTACT (NEGATIVE); URINE GLUCOSE (UA) NEGATIVE (NEGATIVE); URINE LEUKOCYTE ESTERASE NEGATIVE Leu/uL (NEGATIVE); URINE PROTEIN NEGATIVE mg/dL (<30 mg/dL); URINE UROBILINOGEN 0.2 E.U./dL (<1 E.U./dL)
[2017-12-26 12:24] LABS: URINE APPEARANCE CLEAR (CLEAR); URINE COLOR YELLOW (YELLOW)
[2017-12-26 12:25] LABS: URINE BACTERIA MOD (NEG); URINE WBC 0 - 2 /hpf (0-6)
[2017-12-26 12:31] LABS: B-TYPE NATRIURETIC PEPTIDE 439 pg/mL (0-450); TROPONIN I < 0.01 ng/mL
[2017-12-26] MEDS ORDERED: Iohexol 350 MG/100 ML VIAL ONE (12:54)
--- NOTE | 2017-12-26 14:11 | CT ---
Date of service: 12/26/2017 PROCEDURE: CT Chest with contrast HISTORY: dyspnea, fever COMPARISON: Noncontrast chest CT 08/13/2017. TECHNIQUE: Contiguous axial images were obtained through the chest with intravenous contrast enhancement. Sagittal and coronal reconstructions were performed. IV contrast: Omnipaque 350, 100 cc Radiation dose (DLP): 413.54 mGy-cm. This CT exam was performed using one or more of the following dose reduction techniques: Automated exposure control, adjustment of the mA and/or kV according to patient size, and/or use of iterative reconstruction technique. FINDINGS: LUNGS: No definite interval alveolitis is appreciated bilaterally. Mild emphysematous changes and apical fibrosis are reiterated with increased AP chest diameter reiterated and flattened diaphragms suggestive of COPD. Gross emphysema is not appreciated although variable ground-glass opacity is scattered bilaterally once again. Limited bilateral basilar dependent atelectasis is noted. No definitive mass including central airways. MEDIASTINUM: Normal cardiac size. No pulmonary vascular congestion or definite pattern to suggest pulmonary embolus. No significant lymphadenopathy. The thoracic inlet appears normal and an atherosclerotic nonaneurysmal thoracic aorta is appreciated. Main pulmonary artery normal caliber. No pulmonary vascular congestion. A moderate hiatal hernia is reiterated. PLEURA: No pleural fluid. No pneumothorax. BONES: No fracture. No destructive lesion. UPPER ABDOMEN: A peripherally calcified lucent lesion is stable at the right lobe liver abutting the lateral margins of the gallbladder fossa but appearing separate from the gallbladder. OTHER FINDINGS: None. IMPRESSION: Stable COPD pattern without alveolitis, including biapical fibrosis and emphysema. No pleural pericardial effusion or significant lymphadenopathy.
[2017-12-26] MEDS ORDERED: Pneumococcal 23-Valent Vaccine IM ONE (15:11)
[2017-12-26] MEDS ORDERED: Influenza Vaccine 60 mcg/0.5 mL SYR (4YR UP) IM ONE (15:11)
[2017-12-26] MEDS: Piperacillin/Tazobact 3.375 gm 100 ML IVPB SCH (17:08)
[2017-12-26] MEDS ORDERED: Magnesium Hydroxide Susp 30 ml UD PO ONE (18:23)
[2017-12-26] MEDS ORDERED: Levalbuterol 0.63 MG/3 ML Inhal Soln UD IH SCH (20:00)
[2017-12-26] MEDS: Budesonide 0.5 mg/2 ml Inhal Susp UD IH SCH (20:32)
[2017-12-26] MEDS: MethylPREDNISolone 40 mg Vial IVP SCH (21:34)
[2017-12-27] MEDS: Piperacillin/Tazobact 3.375 gm 100 ML IVPB SCH (01:50)
--- NOTE | 2017-12-27 02:43 | HP ---
HISTORY OF PRESENT ILLNESS: This patient is seen on the medical floor. She is in room 569, bed 1. She was admitted via the emergency room. She presented with shortness of breath and cough. The patient has had respiratory infection for few days. The patient also complains of having difficulty in walking due to shortness of breath or dyspnea on exertion and no chest pain. 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 The patient has past history of cerebrovascular disease with TIA. The patient has history of atherosclerotic heart disease, hypertension. The patient has history of chronic obstructive lung disease with bronchiectasis. She also has history of severe lumbar neuritis, cervical spondylosis, osteoarthritis. The patient has had past history of pneumonia, admitted to the [facility]. Last admission was about six months ago. PHYSICAL EXAMINATION GENERAL: She is sitting up in the bed. She seemed to be relatively comfortable and she states she feels better after treatment in the ER. VITAL SIGNS: The patient's pulse is 64, blood pressure is 154/73, O2 sat is 96% on room air. HEENT: Head is normocephalic. NECK: There is evidence of a scar on the left side of the neck that was from surgery for oral carcinoma and lymph node resection on the left side of the neck. The patient's oral cavity has evidence of scar representing surgery in the throat. There are no lymph nodes noted in the neck. JVP is flat. Carotid pulse present. HEART: Normal sinus rhythm, S1, S2 present. No murmurs. LUNGS: Trachea central. Breath sounds are vesicular with occasional rhonchi bilaterally. The patient has diminished breath sounds bilaterally and especially in the lower region. ABDOMEN: Soft. Liver and spleen not palpable. The patient has no ascites, no hernia. MACHINE MAINTENANCE: Conscious, rationale, oriented. There are no focal neurological deficits. The patient has lumbar neuritis and gait abnormality. LABORATORY DATA: The patient's blood work done in the emergency room. The white count is 6600 with 9.9% monocytes and granulocytes are 57%. The patient's chemistry, the parameter seemed to be within normal range. The blood sugar is 84. The patient's BUN and creatinine are greater than 60. The patient's EKG showed nonspecific ST-T wave changes. She has history of atherosclerotic heart disease. BNP was within normal range. The patient's CAT scan was done, the results are not read yet, but CAT scan of the chest is done.. ADMITTING DIAGNOSES: The patient's admitting diagnosis is respiratory infection associated with chronic obstructive lung disease. The patient has also history of atherosclerotic heart disease. MEDICATIONS: The patient is going to be placed on Solu-Medrol. The patient will have Zosyn three times a day and the patient will be on respiratory treatment via nebulizer every 6 hours and the patient will get the Atrovent inhalation therapy also. . The patient will be on Lipitor 20 mg daily and Plavix 75 mg daily. The patient will be on Ambien 5 mg daily, as needed for sleep and the patient will get Bystolic 5 mg once a day for blood pressure. The patient's overall condition is unstable and acute at this time. Prognosis is guarded. We will continue medical management at this time, have a Pulmonary consultation and also consultation with Infectious Disease. Herb Chan MD DANA
[2017-12-27] MEDS: Levothyroxine 100 MCG TAB PO SCH (05:59)
--- NOTE | 2017-12-27 07:50 | CON ---
DATE: 12/27/2017 PULMONARY CONSULTATION DICTATION REASON FOR PULMONARY CONSULTATION: Chronic obstructive pulmonary disease. REFERRING PHYSICIAN: Dr. Chan HISTORY OF PRESENT ILLNESS: The patient is an 87-year-old female, with past medical history significant for chronic obstructive pulmonary disease, atherosclerotic heart disease, hypertension, cancer of the oral cavity, previous cerebrovascular accident, who presents to [facility] with a 4-day history of worsening shortness of breath at rest, dyspnea on exertion, cough, and minimal sputum production. There is no history of chest pain, coughing up of blood, or chest pain - made worse with deep respirations. There is no history of temperatures, chills or infectious exposure. There is no history of night sweats, weight loss or appetite change prior to the above events. No history of leg or calf pains. No history of syncope or diaphoresis. No history of recent travel or trauma. REVIEW OF SYSTEMS: The patient does state to runny nose and nasal congestion over the past 2 weeks. No new urinary complaints. No nausea, vomiting or diarrhea. No new musculoskeletal or neurologic complaints. Rest of the review of systems is negative. ALLERGIES: LEVAQUIN. SOCIAL HISTORY: Positive for tobacco and negative for alcohol. FAMILY HISTORY: No inheritable diseases. HOME MEDICATIONS: Include prednisone, Bystolic, Synthroid, Flovent, Plavix, Tessalon, Lipitor, Ecotrin, amoxicillin and Combivent Respimat. PHYSICAL EXAMINATION: GENERAL: The patient appears comfortable at rest. She is not short of breath. VITAL SIGNS: Temperature is 98.2, pulse 67, respirations 18, blood pressure 148/87. Oxygen saturation on room air is 95%. HEENT: Normocephalic, atraumatic. No JVD. CARDIOVASCULAR: Systolic ejection murmur at the lower left sternal border. No S3 gallop. LUNGS: Decreased breath sounds at the bases. Minimal rhonchi. Minimal wheezing. EXTREMITIES: No clubbing, cyanosis or edema. Calves are nontender to palpation. GI: Abdomen is soft, nontender and nondistended. Bowel sounds are positive. SKIN: No acute rash. NEUROLOGIC: Exam limited at the present time. PERTINENT LABORATORY DATA: CAT scan of the chest was done and reviewed. There is moderate chronic obstructive pulmonary disease noted. There is also some biapical fibrosis. There are no acute infiltrates, masses or nodules present. CBC: White count 6.6K, hemoglobin 12.3, hematocrit 38.3, platelets of 191,000. Arterial blood gas was done on room air. Results are: The pH 7.47, pCO2 of 36, pO2 of 74. Complete metabolic profile - all values within normal limits. IMPRESSION: 1. Acute bronchitis. 2. Acute sinusitis. 3. Chronic obstructive pulmonary disease. 4. Atherosclerotic heart disease. PLAN: The patient presents to [facility] with a 4-day history of worsening pulmonary symptoms. In addition, she also gives a history of runny nose and nasal congestion for the past 2 weeks. I did review the CAT scan of the chest. Findings as noted above. There are no acute significant abnormalities noted. On physical exam, the patient is in [id number] bronchospasm. I will change the nebulizer treatments to every six hours [id number] and continue with the intravenous Solu-Medrol. I will also add nasal steroids - given the above history. Lastly, I will add oral antibiotic therapy at this point in time. There is no history of temperatures. There is no leukocytosis. The patient does state to feeling better this morning, and is clinically improved. Additional pulmonary intervention will be based on the clinical status of the patient. I will discuss the above with Dr. Chan. Thank you very much for this pulmonary consultation. Riki Charlton MD [facility]
[2017-12-27 08:57] LABS: BASO # 0.01 K/mm3 (0.0-2.0); BASO % 0.2 % (0.0-3.0); GRAN # 4.87 (1.4-6.5); GRAN % 79.8 % (50.0-68.0); HEMOGLOBIN 11.9 g/dL (12.0-16.0); LYMPH # 1.1 (1.2-3.4); LYMPH % 17.5 % (22.0-35.0); MEAN CELL VOLUME 93.3 fl (80.0-105.0); MEAN CORPUSCULAR HEMOGLOBIN 30.5 pg (25.0-35.0); MEAN CORPUSCULAR HGB CONC 32.7 g/dl (31.0-37.0); MEAN PLATELET VOLUME 10.1 fl (7.0-11.0); MONO # 0.2 (0.1-0.6); MONO % 2.5 % (1.0-6.0); RBC 3.9 10^6/uL (3.5-6.1); RED CELL DISTRIBUTION WIDTH 13.9 % (11.5-14.5); WHITE BLOOD COUNT 6.1 10^3/ul (4.5-11.0)
--- NOTE | 2017-12-27 08:58 | CARD ---
APPROVED REPORT Date of service: 12/26/2017 EKG Measurement Heart [id number] <Conclusion> Sinus rhythm with 1st degree AV block No change
[2017-12-27] MEDS ORDERED: Levalbuterol 1.25 MG/3 ML Inhal Soln UD IH PRN (09:00)
[2017-12-27] MEDS ORDERED: Levalbuterol 1.25 MG/3 ML Inhal Soln UD IH SCH (09:00)
[2017-12-27 09:07] LABS: ALB/GLOB RATIO 1.1 (1.1-1.8); ALBUMIN 3.3 g/dL (3.0-4.8); ALT/SGPT 22 U/L (7-56); AST/SGOT 22 U/L (14-36); BLOOD UREA NITROGEN 16 mg/dL (7-21); CALCIUM 9.2 mg/dL (8.4-10.5); GFR NON-AFRICAN AMERICAN > 60
[2017-12-27] MEDS: MethylPREDNISolone 40 mg Vial IVP SCH ×2 (09:20→23:20)
[2017-12-27] MEDS: Fluticasone Nasal 50 mcg/Spray NS SCH (09:22)
[2017-12-27] MEDS: Budesonide 0.5 mg/2 ml Inhal Susp UD IH SCH ×2 (09:35→21:12)
[2017-12-27] MEDS: Levalbuterol 1.25 MG/3 ML Inhal Soln UD IH SCH ×3 (09:37→21:12)
--- NOTE | 2017-12-27 12:23 | PN ---
DATE: 12/27/2017 LOCATION: The patient is in [facility] room 569, bed 2. SUBJECTIVE: The patient was admitted yesterday with shortness of breath, wheezing, cough and chills. The patient has past history of chronic lung disease, bronchiectasis of lung. The patient also has history of TIA, atherosclerotic heart disease, hypertension, hyperlipidemia, hypothyroidism and the patient is seen this morning. She states she feels a little bit better than yesterday. Her breathing is more relaxed. PHYSICAL EXAMINATION: VITAL SIGNS: The pulse is 87, blood pressure 134/87, respirations are 18, O2 sat is 95% on room air. HEENT: The patient's head is normocephalic. 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 HEART: Normal sinus rhythm. S1, S2 present. LUNGS: Trachea central. Breath sounds are diminished bilaterally. Rhonchi present, crepitations present. ABDOMEN: Soft. Liver and spleen not palpable. ASSISTANT ACTIVITIES DIRECTOR: No focal deficits are noted. Clinically, the patient has past history of TIA. MEDICATIONS: The patient's medications at this time, the patient is on Ambien 5 mg at night for sleep, aspirin. The patient is on Flonase, Lipitor, Plavix, Pulmicort. The patient is on Solu-Medrol 40 mg IV every 12 hours. The patient is on Synthroid 100 mcg daily, atenolol 25 mg p.o. daily. The patient gets Tessalon for cough, albuterol for respiratory bronchodilatation and Zithromax 250 mg p.o. daily. ASSESSMENT AND PLAN: The patient's current condition is acute. The patient is improving clinically. The blood work shows that the white count is normal, hemoglobin 11.9. The differential shows a shift to the left. [place] about [id number]. The patient's chemistry, the blood sugar is 128, all other chemical parameters seem to be within normal range. GFR is good. We will continue current management and follow up. Herb Chan MD [facility] # [id number] DANA
--- NOTE | 2017-12-27 14:05 | CP.PCM.CON ---
History of Present Illness - History of Present Illness History of Present Illness: 87 year old female with PMH of COPD, oral cancer S/P radiation, HTN, [place] [facility] of runny nose for about 2 weeks, with nasal congestion, sore throat for a few days and cough with clear phlegm for the past 4 days associated with SOB and dyspnea on exertion. She denies fever or chills, no travel outside of [place] in the past 3 months, no specific animal contacts, no abdominal pain, no nausea or vomiting, no diarrhea, no chest pain, no dysuria. Chest CT does not show infiltrates but shows stable COPD. Infectious diseases consult is requested to further evaluate and manage. Review of Systems - Review of Systems All systems: reviewed and no additional remarkable complaints except (as per HPI) Past Patient History - Infectious Disease Hx of Infectious Diseases: None - Past Social History Smoking Status: Former Smoker - CARDIAC Hx Hypertension: Yes - PULMONARY Hx Chronic Obstructive Pulmonary Disease (COPD): Yes - NEUROLOGICAL Hx Neurological Disorder: Yes (ALZEIMER'S) - HEENT Hx HEENT Problems: No - RENAL Hx Chronic Kidney Disease: No - ENDOCRINE/METABOLIC Hx Hypothyroidism: Yes - HEMATOLOGICAL/ONCOLOGICAL Hx Cancer: Yes - INTEGUMENTARY Hx Dermatological Problems: No - MUSCULOSKELETAL/RHEUMATOLOGICAL Hx Arthritis: Yes - GASTROINTESTINAL Other/Comment: Hx oral cancer with radiation - GENITOURINARY/GYNECOLOGICAL Hx Genitourinary Disorders: No - PSYCHIATRIC Hx Substance Use: No - SURGICAL HISTORY Hx Orthopedic Surgery: Yes - ANESTHESIA Hx Anesthesia: No Meds Allergies/Adverse Reactions: Allergies Allergy/AdvReac Type Severity Reaction Status Date / Time levofloxacin AdvReac Intermediate SWELLING Verified 12/26/17 13:14 - Medications Medications: Current Medications Aspirin (Ecotrin) 81 mg PO DAILY [facility] Last Admin: 12/27/17 09:20 Dose: 81 mg Atenolol (Tenormin) 25 mg PO DAILY [facility] Last Admin: 12/27/17 09:20 Dose: 25 mg Atorvastatin Calcium (Lipitor) 20 mg PO DIN [facility] Last Admin: 12/26/17 17:08 Dose: 20 mg Azithromycin (Zithromax) 250 mg PO DAILY [facility]; Protocol Last Admin: 12/27/17 09:21 Dose: 250 mg Benzonatate (Tessalon Perles) 100 mg PO TID PRN PRN Reason: Cough Budesonide (Pulmicort Respules) 0.5 mg IH [id number] [facility] Last Admin: 12/27/17 09:35 Dose: 0.5 mg Clopidogrel Bisulfate (Plavix) 75 mg PO DAILY [facility] Last Admin: 12/27/17 09:21 Dose: 75 mg Docusate Sodium (Colace) 100 mg PO BID [facility] Last Admin: 12/27/17 10:50 Dose: 100 mg Fluticasone Propionate (Flonase) 1 actuation NS DAILY [facility] Last Admin: 12/27/17 09:22 Dose: 1 spray Levalbuterol HCl (Xopenex) 1.25 mg IH [id number] [facility] Last Admin: 12/27/17 13:28 Dose: 1.25 mg Levalbuterol HCl (Xopenex) 1.25 mg IH Q3 PRN PRN Reason: Shortness of Breath Levothyroxine Sodium (Synthroid) 100 mcg PO 0600 [facility] Last Admin: 12/27/17 05:59 Dose: 100 mcg Magnesium Hydroxide (Milk Of Magnesia) 30 ml PO BID [facility] Methylprednisolone (Solu-Medrol) 40 mg IVP Q12 [facility] Last Admin: 12/27/17 09:20 Dose: 40 mg Zolpidem Tartrate (Ambien) 5 mg PO HS PRN; Protocol PRN Reason: Insomnia Last Admin: 12/27/17 01:50 Dose: 5 mg Physical Exam - Constitutional Appears: Chronically Ill - Head Exam Head Exam: NORMAL INSPECTION - Respiratory Exam Respiratory Exam: Decreased Breath Sounds - Cardiovascular Exam Cardiovascular Exam: +S1, +S2 - GI/Abdominal Exam GI & Abdominal Exam: Soft. absent: Tenderness Results - Vital Signs Recent Vital Signs: Last Vital Signs Temp 97.8 F 12/27/17 06:00 Pulse 87 12/27/17 09:20 Resp 18 12/27/17 06:00 BP 134/87 12/27/17 09:20 Pulse Ox 95 12/27/17 06:00 - Labs Result Diagrams: 12/27/17 07:00 12/27/17 07:00 Labs: Laboratory Results - last 24 hr 12/27/17 12/27/17 07:00 07:00 WBC 6.1 RBC 3.90 Hgb 11.9 L Hct 36.4 MCV 93.3 MCH 30.5 MCHC 32.7 RDW 13.9 Plt Count 201 MPV 10.1 Gran % 79.8 H Lymph % (Auto) 17.5 L [place] % (Auto) 2.5 Eos % (Auto) 0.0 L Baso % (Auto) 0.2 Gran # 4.87 Lymph # (Auto) 1.1 L [place] # (Auto) 0.2 Eos # (Auto) 0.0 Baso # (Auto) 0.01 Sodium 140 Potassium 4.1 Chloride 107 Carbon Dioxide 27 Anion Gap 9 L BUN 16 Creatinine 0.8 Est GFR ( Amer) > 60 Est GFR (Non-Af Amer) > 60 Random Glucose 128 H Calcium 9.2 Total Bilirubin 0.5 AST 22 ALT 22 Alkaline Phosphatase 100 Total Protein 6.3 Albumin 3.3 Globulin 2.9 Albumin/Globulin Ratio 1.1 Assessment & Plan - Assessment and Plan (Free Text) Plan: Assessment Probable acute bronchitis which started with acute rhinosinusitis COPD oral cancer S/P radiation HTN Plan Patient has been started by Dr. Charlton on Zithromax, steroids, bronchodilators will follow clinically, check blood cx, monitor clinical response
[2017-12-27] MEDS: Magnesium Hydroxide Susp 30 ml UD PO SCH (18:40)
[2017-12-28] MEDS: Levalbuterol 1.25 MG/3 ML Inhal Soln UD IH SCH ×4 (02:33→20:16)
[2017-12-28] MEDS: Levothyroxine 100 MCG TAB PO SCH (06:50)
[2017-12-28] MEDS: Budesonide 0.5 mg/2 ml Inhal Susp UD IH SCH ×2 (08:09→20:16)
--- NOTE | 2017-12-28 08:49 | PN ---
DATE: 12/28/2017 PULMONARY NOTE DICTATION SUBJECTIVE: The patient appears comfortable this morning. She is not short of breath at rest. PHYSICAL EXAMINATION: VITAL SIGNS: (Last noted in the computer): Temperature is 98.5, pulse 69, respirations 18, blood pressure 126/68. Oxygen saturation on room air is 98%. HEENT: Normocephalic, atraumatic. No JVD. CARDIOVASCULAR: Systolic ejection murmur at the lower left sternal border. No S3 gallop. LUNGS: Improved breath sounds at the bases. Less rhonchi. No wheezing this morning. EXTREMITIES: No clubbing, cyanosis or edema. Calves are nontender to palpation. GI: Abdomen is soft, nontender and nondistended. Bowel sounds are positive. SKIN: No acute rash. NEUROLOGIC: Exam limited at the present time. IMPRESSION: 1. Acute bronchitis. 2. Acute sinusitis. 3. Chronic obstructive pulmonary disease. 4. Atherosclerotic heart disease. PLAN: The patient appears much more comfortable this morning. She is not short of breath at rest. She does state to feeling much better overall. On physical exam, her bronchospasm is certainly less. In addition, the oxygen saturation on room air is now 98%. I will continue the current nebulizer treatments and decrease the intravenous steroids this morning. The patient remains on nasal steroids and antibiotics. I will continue with those medications for now. Clinical status of the patient is definitely improved - compared to the initial presentation. The patient is advised to be out of bed as much as she can. I will discuss the above with the attending physician. Riki Charlton MD [facility]
[2017-12-28] MEDS: Magnesium Hydroxide Susp 30 ml UD PO SCH ×2 (09:07→19:22)
[2017-12-28] MEDS: MethylPREDNISolone 40 mg Vial IVP SCH ×2 (09:07→21:25)
[2017-12-28] MEDS: Fluticasone Nasal 50 mcg/Spray NS SCH (09:09)
--- NOTE | 2017-12-28 12:55 | PN ---
DATE: 12/28/2017 SUBJECTIVE: The patient is an 87-year-old white female. She is admitted with exacerbation of chronic obstructive lung disease, chronic bronchitis. The patient also has history of bronchiectasis. Her past medical history, she had atherosclerotic heart disease, hypertension, TIA. 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 The patient also has past history of carcinoid of the liver that had been treated at [facility]. The patient has had past admission for chronic bronchitis, exacerbation of COPD. Today, the patient is seen, she is improved somewhat from yesterday, her steroids have been decreased from 40 mg IV twice a day to 30 mg IV twice a day by Dr. Charlton. PHYSICAL EXAMINATION: VITAL SIGNS: The patient's pulse is 78, blood pressure 140/75, respirations are 18, O2 sat is 94% on room air. LUNGS: The breath sounds are diminished bilaterally. Rhonchi and crepitations are heard. HEART: Normal sinus rhythm. S1, S2 present. No murmurs. ABDOMEN: Soft. Liver and spleen not palpable. ANESTHESIOLOGY RESIDENT: No focal deficits. MEDICATIONS: The patient's medications consist of Ambien for sleep. The patient is on Flonase for nasal allergy, Lipitor 20 mg daily, magnesium hydroxide for constipation, Plavix 75 mg daily. The patient is on Pulmicort every 12 hours twice a day. The patient also gets antibiotic, Zithromax 250 mg daily. LABORATORY DATA: The patient's repeat blood work shows a hemoglobin of 11.9, differential shows 79.8% polys. PLAN: We will continue current management, follow up and we will keep in touch with the pulmonary consultation and advise. Herb Chan MD [facility]
--- NOTE | 2017-12-28 17:54 | CP.PCM.PN ---
Subjective - Date & Time of Evaluation Date of Evaluation: 12/28/17 Time of Evaluation: 10:45 - Subjective Subjective: No fevers, cough and sinus congestion is getting better, no fevers. Objective - Vital Signs/Intake and Output Vital Signs (last 24 hours): Temp Pulse Resp BP Pulse Ox 98.4 F 79 18 126/78 94 L 12/28/17 06:00 12/28/17 09:12 12/28/17 06:00 12/28/17 09:12 12/28/17 06:00 Intake and Output: 12/28/17 12/28/17 06:59 18:59 Intake Total 120 Balance 120 - Medications Medications: Current Medications Aspirin (Ecotrin) 81 mg PO DAILY [facility] Last Admin: 12/28/17 09:08 Dose: 81 mg Atenolol (Tenormin) 25 mg PO DAILY [facility] Last Admin: 12/28/17 09:12 Dose: 25 mg Atorvastatin Calcium (Lipitor) 20 mg PO DIN [facility] Last Admin: 12/27/17 18:40 Dose: 20 mg Azithromycin (Zithromax) 250 mg PO DAILY [facility]; Protocol Last Admin: 12/28/17 09:14 Dose: 250 mg Benzonatate (Tessalon Perles) 100 mg PO TID PRN PRN Reason: Cough Budesonide (Pulmicort Respules) 0.5 mg IH [id number] [facility] Last Admin: 12/28/17 08:09 Dose: Not Given Clopidogrel Bisulfate (Plavix) 75 mg PO DAILY [facility] Last Admin: 12/28/17 09:08 Dose: 75 mg Docusate Sodium (Colace) 100 mg PO BID [facility] Last Admin: 12/28/17 09:08 Dose: 100 mg Fluticasone Propionate (Flonase) 1 actuation NS DAILY [facility] Last Admin: 12/28/17 09:09 Dose: 1 spray Levalbuterol HCl (Xopenex) 1.25 mg IH [id number] [facility] Last Admin: 12/28/17 08:10 Dose: Not Given Levalbuterol HCl (Xopenex) 1.25 mg IH Q3 PRN PRN Reason: Shortness of Breath Levothyroxine Sodium (Synthroid) 100 mcg PO 0600 [facility] Last Admin: 12/28/17 06:50 Dose: 100 mcg Magnesium Hydroxide (Milk Of Magnesia) 30 ml PO BID [facility] Last Admin: 12/28/17 09:07 Dose: 30 ml Methylprednisolone (Solu-Medrol) 30 mg IVP Q12 [facility] Last Admin: 12/28/17 09:07 Dose: 30 mg Zolpidem Tartrate (Ambien) 5 mg PO HS PRN; Protocol PRN Reason: Insomnia Last Admin: 12/27/17 23:19 Dose: 5 mg - Labs Labs: 12/27/17 07:00 12/27/17 07:00 PT 12.5 SECONDS (9.4-12.5) 12/26/17 11:56 INR 1.09 12/26/17 11:56 APTT 27.5 Seconds (25.1-36.5) 12/26/17 11:56 - Constitutional Appears: No Acute Distress, Chronically Ill - Head Exam Head Exam: NORMAL INSPECTION - Respiratory Exam Respiratory Exam: Decreased Breath Sounds - Cardiovascular Exam Cardiovascular Exam: +S1, +S2 - GI/Abdominal Exam GI & Abdominal Exam: Soft. absent: Tenderness Assessment and Plan - Assessment and Plan (Free Text) Plan: Assessment Probable acute bronchitis which started with acute rhinosinusitis, clinically improving COPD oral cancer S/P radiation HTN Plan continue Zithromax day 2, steroids, bronchodilators will continue to follow clinically, blood cx are negative so far
[2017-12-29] MEDS: Levalbuterol 1.25 MG/3 ML Inhal Soln UD IH SCH ×3 (05:01→13:35)
[2017-12-29] MEDS: Levothyroxine 100 MCG TAB PO SCH (06:07)
--- NOTE | 2017-12-29 07:43 | PN ---
DATE: 12/29/2017 PULMONARY NOTE DICTATION SUBJECTIVE: The patient appears very comfortable this morning. She is not short of breath at rest. PHYSICAL EXAMINATION: VITAL SIGNS: (Last noted in the computer): Temperature is 97.9, pulse 65, respirations 18, blood pressure 158/79. Oxygen saturation on room air is 97%. HEENT: Normocephalic, atraumatic. No JVD. CARDIOVASCULAR: Systolic ejection murmur at the lower left sternal border. No S3 gallop. LUNGS: Very minimal/less rhonchi. No wheezing. EXTREMITIES: No clubbing, cyanosis or edema. Calves are nontender to palpation. GI: Abdomen is soft, nontender and nondistended. Bowel sounds are positive. SKIN: No acute rash. NEUROLOGIC: Exam limited at the present time. IMPRESSION: 1. Acute bronchitis. 2. Acute sinusitis. 3. Chronic obstructive pulmonary disease. 4. Atherosclerotic heart disease. PLAN: The patient appears very comfortable this morning. She is not short of breath at rest. She does state to feeling much, much better overall. On physical exam, her bronchospasm continues to resolve. In addition, the oxygen saturation on room air is now 97%. I will continue with the current nebulizer treatments and changes to oral steroids this morning. The patient also remains on nasal steroids and Zithromax. I will continue these medications for now. Clinical status of the patient is significantly improved overall. I will discuss the above with Dr. Chan. Riki Charlton MD [facility]
--- NOTE | 2017-12-29 08:15 | CP.PCM.PN ---
Subjective - Date & Time of Evaluation Date of Evaluation: 12/29/17 Time of Evaluation: 07:45 - Subjective Subjective: Patient seen this morning. She is feeling better. She complains of dark pigmented spot on her right 4th toe. Objective - Vital Signs/Intake and Output Vital Signs (last 24 hours): Temp Pulse Resp BP Pulse Ox 97.9 F 65 18 158/79 H 97 12/28/17 14:00 12/28/17 14:00 12/28/17 14:00 12/28/17 14:00 12/28/17 14:00 Intake and Output: 12/29/17 12/29/17 06:59 18:59 Intake Total 120 Balance 120 - Medications Medications: Current Medications Aspirin (Ecotrin) 81 mg PO DAILY [facility] Last Admin: 12/28/17 09:08 Dose: 81 mg Atenolol (Tenormin) 25 mg PO DAILY [facility] Last Admin: 12/28/17 09:12 Dose: 25 mg Atorvastatin Calcium (Lipitor) 20 mg PO DIN [facility] Last Admin: 12/28/17 19:22 Dose: 20 mg Azithromycin (Zithromax) 250 mg PO DAILY [facility]; Protocol Last Admin: 12/28/17 09:14 Dose: 250 mg Benzonatate (Tessalon Perles) 100 mg PO TID PRN PRN Reason: Cough Budesonide (Pulmicort Respules) 0.5 mg IH [id number] [facility] Last Admin: 12/28/17 20:16 Dose: 0.5 mg Clopidogrel Bisulfate (Plavix) 75 mg PO DAILY [facility] Last Admin: 12/28/17 09:08 Dose: 75 mg Docusate Sodium (Colace) 100 mg PO BID [facility] Last Admin: 12/28/17 19:22 Dose: 100 mg Fluticasone Propionate (Flonase) 1 actuation NS DAILY [facility] Last Admin: 12/28/17 09:09 Dose: 1 spray Levalbuterol HCl (Xopenex) 1.25 mg IH [id number] [facility] Last Admin: 12/29/17 05:01 Dose: Not Given Levalbuterol HCl (Xopenex) 1.25 mg IH Q3 PRN PRN Reason: Shortness of Breath Levothyroxine Sodium (Synthroid) 100 mcg PO 0600 [facility] Last Admin: 12/29/17 06:07 Dose: 100 mcg Magnesium Hydroxide (Milk Of Magnesia) 30 ml PO BID [facility] Last Admin: 12/28/17 19:22 Dose: 30 ml Prednisone (Prednisone Tab) 40 mg PO DAILY [facility] Last Admin: 12/29/17 08:03 Dose: 40 mg Zolpidem Tartrate (Ambien) 5 mg PO HS PRN; Protocol PRN Reason: Insomnia Last Admin: 12/28/17 21:26 Dose: 5 mg - Labs Labs: 12/27/17 07:00 12/27/17 07:00 PT 12.5 SECONDS (9.4-12.5) 12/26/17 11:56 INR 1.09 12/26/17 11:56 APTT 27.5 Seconds (25.1-36.5) 12/26/17 11:56 - Constitutional Appears: No Acute Distress - Head Exam Head Exam: ATRAUMATIC, NORMOCEPHALIC - Respiratory Exam Respiratory Exam: Clear to Ausculation Bilateral, NORMAL BREATHING PATTERN - Cardiovascular Exam Cardiovascular Exam: +S1, +S2 - GI/Abdominal Exam GI & Abdominal Exam: Soft, Normal Bowel Sounds. absent: Tenderness - Neurological Exam Neurological Exam: Alert, Awake, CN II-XII Intact, Oriented x3 Assessment and Plan - Assessment and Plan (Free Text) Assessment: COPD exacerbation HTN Hypothyroidism history of oral cancer CVD Plan: Patient will see Dr. Kang, boatbuilder apprentice wood, regarding the lesion on her toe. She will be discharged today and can followup with podiatry as outpatient. She will continue her home meds with exception of inhalers. Prescription given for nebulizer machine, pulmicort and xopenex to be given via nebulizer. Patient unable to take albuterol due to tachycardia. Scripts also given for zithromax and prednisone. Patient will followup in the office next friday. Aspirin (Ecotrin) 81 mg PO DAILY [facility] Bystolic 2.5 mg daily Atorvastatin Calcium (Lipitor) 20 mg PO DIN [facility] Azithromycin (Zithromax) 250 mg PO DAILY [facility] Budesonide (Pulmicort Respules) 0.5 mg IH [id number] [facility] Clopidogrel Bisulfate (Plavix) 75 mg PO DAILY [facility] Fluticasone Propionate (Flonase) 1 actuation NS DAILY [facility] Levalbuterol HCl (Xopenex) 1.25 mg IH [id number] [facility] Levothyroxine Sodium (Synthroid) 100 mcg PO 0600 [facility] Prednisone (Prednisone Tab) 10 mg PO BID for 10 days, then daily for 10 days Zolpidem Tartrate (Ambien) 5 mg PO HS PRN
[2017-12-29 09:09] VITALS: BP 126/65; PULSE 70; TEMP 98.1; O2SAT 94
[2017-12-29] MEDS: Fluticasone Nasal 50 mcg/Spray NS SCH (11:15)
[2017-12-29] MEDS: Magnesium Hydroxide Susp 30 ml UD PO SCH (11:15)
--- NOTE | 2017-12-29 15:17 | CP.PCM.PN ---
Subjective - Date & Time of Evaluation Date of Evaluation: 12/29/17 Time of Evaluation: 12:10 - Subjective Subjective: No fevers, no more runny nose, cough is improving, no nausea. Objective - Vital Signs/Intake and Output Vital Signs (last 24 hours): Temp Pulse Resp BP Pulse Ox 98.1 F 70 18 126/65 94 L 12/29/17 06:00 12/29/17 11:16 12/29/17 06:00 12/29/17 11:16 12/29/17 06:00 Intake and Output: 12/29/17 12/29/17 06:59 18:59 Intake Total 120 Balance 120 - Labs Labs: 12/27/17 07:00 12/27/17 07:00 PT 12.5 SECONDS (9.4-12.5) 12/26/17 11:56 INR 1.09 12/26/17 11:56 APTT 27.5 Seconds (25.1-36.5) 12/26/17 11:56 - Constitutional Appears: Non-toxic, Chronically Ill - Head Exam Head Exam: NORMAL INSPECTION - ENT Exam ENT Exam: Mucous Membranes Moist - Neck Exam Neck Exam: absent: Meningismus - Respiratory Exam Respiratory Exam: Decreased Breath Sounds. absent: Rales - Cardiovascular Exam Cardiovascular Exam: +S1, +S2 - GI/Abdominal Exam GI & Abdominal Exam: Soft. absent: Tenderness Assessment and Plan - Assessment and Plan (Free Text) Plan: Assessment Probable acute bronchitis which started with acute rhinosinusitis, clinically improving COPD oral cancer S/P radiation HTN Plan continue Zithromax day 3 for 3-5 days, steroids, bronchodilators
--- NOTE | 2017-12-29 16:19 | CP.PCM.CON ---
History of Present Illness - History of Present Illness History of Present Illness: Podiatry Consult Note for Dr. Kang: 87 yo female patient, with PMHx of COPD seen and evaluated at bedside with right 4th digit hyperpigmentation to nail bed. Patient states that it started over the course of the past week and doesn't recall any traumas to the area. She denies any pain. Denies any other pedal complaints at this time. She is accompanied by her daughter at today's visit. Denies N/V/F/SOB/CP. PMHx: COPD ALL: Levofloxacin Review of Systems - Review of Systems Review of Systems: As per HPI Past Patient History - Infectious Disease Hx of Infectious Diseases: None - Past Social History Smoking Status: Former Smoker - CARDIAC Hx Hypertension: Yes - PULMONARY Hx Chronic Obstructive Pulmonary Disease (COPD): Yes - NEUROLOGICAL Hx Neurological Disorder: Yes (ALZEIMER'S) - HEENT Hx HEENT Problems: No - RENAL Hx Chronic Kidney Disease: No - ENDOCRINE/METABOLIC Hx Hypothyroidism: Yes - HEMATOLOGICAL/ONCOLOGICAL Hx Cancer: Yes - INTEGUMENTARY Hx Dermatological Problems: No - MUSCULOSKELETAL/RHEUMATOLOGICAL Hx Arthritis: Yes - GASTROINTESTINAL Other/Comment: Hx oral cancer with radiation - GENITOURINARY/GYNECOLOGICAL Hx Genitourinary Disorders: No - PSYCHIATRIC Hx Substance Use: No - SURGICAL HISTORY Hx Orthopedic Surgery: Yes - ANESTHESIA Hx Anesthesia: No Meds Home Medications: Home Medication List Medication Instructions Recorded Confirmed Type Azithromycin [Zithromax] 250 mg PO DAILY #5 tab 12/29/17 Rx Budesonide [Pulmicort Respules] 0.5 mg IH [id number] #60 neb 12/29/17 Rx Docusate [Colace] 100 mg PO BID cap 12/29/17 Rx Fluticasone Nasal [Flonase] 1 actuation NS DAILY spr 12/29/17 Rx Levalbuterol [Xopenex] 1.25 mg IH Q3 PRN neb 12/29/17 Rx Zolpidem [Ambien] 5 mg PO HS PRN tab 12/29/17 Rx predniSONE [predniSONE Tab] 10 mg PO BID #30 tab 12/29/17 Rx Allergies/Adverse Reactions: Allergies Allergy/AdvReac Type Severity Reaction Status Date / Time levofloxacin AdvReac Intermediate SWELLING Verified 12/26/17 13:14 Physical Exam - Constitutional Appears: Well, Non-toxic, No Acute Distress - Head Exam Head Exam: ATRAUMATIC, NORMOCEPHALIC - Extremities Exam Additional comments: B/L lower extremity focused exam: Vascular: DP/PT palpable, CFT <3 seconds to all digits, no edema noted to the right 4th digit Ortho: Patient able to move toes, no tenderness to palpation noted to right 4th digit Neuro: Gross sensation intact Derm: Oval shaped hyperpigmentation noted to right 4th digit nail bed, well demarcated border, red/brown discoloration consideration with bruising under the nail bed. No open lesions, no erythema, no malodor, no clinical signs of infection - Neurological Exam Neurological exam: Alert, Oriented x3 Results - Vital Signs Recent Vital Signs: Last Vital Signs Temp 98.1 F 12/29/17 06:00 Pulse 70 12/29/17 11:16 Resp 18 12/29/17 06:00 BP 126/65 12/29/17 11:16 Pulse Ox 94 L 12/29/17 06:00 - Labs Result Diagrams: 12/27/17 07:00 12/27/17 07:00 Assessment & Plan - Assessment and Plan (Free Text) Assessment: 87 yo female patient, with PMHx of COPD seen and evaluated at bedside with right 4th digit hyperpigmentation to nail bed. Plan: Patient seen and evaluated with Dr. Kang Chart, labs, vitals reviewed; afebrile, absent leukocytosis Discussed with patient the likely etiology of a bruise to the 4th digit beneath the nail Patient advised to make an appointment in clinic if the hyperpigmentation changes shape or begins to cause pain Podiatry to sign off at this time; please reconsult as needed Thank you for the consult. - Date & Time Date: 12/29/17 Time: 16:23
== END 2017-12-29 15:06 | disposition home or self-care (01) | DRG 192 ==
LOC: ED 10:42 → ERH 12:25 → 5RNO 14:08
PROVIDERS: ADMIT Internal Medicine; ATTEND Internal Medicine
DX: J44.1 Chronic obstructive pulmonary disease with (acute) exacerbation (principal); J44.0 Chronic obstructive pulmonary disease with (acute) lower respiratory infection; J20.9 Acute bronchitis, unspecified; J01.90 Acute sinusitis, unspecified; I25.10 Atherosclerotic heart disease of native coronary artery without angina pectoris; I10 Essential (primary) hypertension; M54.16 Radiculopathy, lumbar region; E03.9 Hypothyroidism, unspecified; E78.5 Hyperlipidemia, unspecified; Z85.819 Personal history of malignant neoplasm of unspecified site of lip, oral cavity, and pharynx; Z86.73 Personal history of transient ischemic attack (TIA), and cerebral infarction without residual deficits; Z92.3 Personal history of irradiation; Z87.891 Personal history of nicotine dependence; Z79.02 Long term (current) use of antithrombotics/antiplatelets; Z79.82 Long term (current) use of aspirin; Z87.01 Personal history of pneumonia (recurrent)

== ENCOUNTER 2018-05-30 14:36 | Inpatient (IN) | payer MEDICARE, OTHER ==
[2018-05-30 14:40] VITALS: BMI 27.4
[2018-05-30] MEDS ORDERED: MethylPREDNISolone 40 mg Vial IVP STA (14:49)
[2018-05-30] MEDS ORDERED: Albuterol-Ipratrop 3 mg / 0.5 (3 ml) UD IH SCH (15:00)
[2018-05-30 15:16] LABS: VENOUS BLOOD GAS BASE EXCESS 1.9 mmol/L (0.0-2.0); VENOUS BLOOD GAS PO2 23 mm/Hg (30-55); VENOUS BLOOD PH 7.36 (7.32-7.43)
[2018-05-30] MEDS ORDERED: Levalbuterol 0.63 MG/3 ML Inhal Soln UD IH STA ×2 (15:18→16:57)
--- NOTE | 2018-05-30 15:18 | ED PDOC ---
Arrival/HPI - General Chief Complaint: Shortness Of Breath Time Seen by Provider: 05/30/18 14:40 Historian: Patient - History of Present Illness Narrative History of Present Illness (Text): 05/30/18 15:15 88 year old female, whose past medical history includes COPD, hypertension, and oral cancer S/P radiation, presents to the emergency department complaining of shortness of breath, cough, wheezing, and chest tightness that began 5 days ago. Patient reports she has a cold and has been taking Amoxicillin. Patient took her nebulizer treatment without any relief. Patient denies any fever, chills, shortness of breath, nausea, vomiting, diarrhea, urinary symptoms, back pain, neck pain, headache, dizziness, or any other complaints. PMD: Dr. Chan Time/Duration: Other (5 days) Symptom Onset: Gradual Symptom Course: Unchanged Activities at Onset: Light Context: Home Past Medical History - Provider Review Nursing Documentation Reviewed: Yes - Infectious Disease Hx of Infectious Diseases: None - Cardiac Hx Hypertension: Yes - Pulmonary Hx Chronic Obstructive Pulmonary Disease (COPD): Yes Hx Emphysema: Yes - Neurological Hx Neurological Disorder: Yes Hx Alzheimer's Disease: Yes - HEENT Hx HEENT Disorder: No - Renal Hx Renal Disorder: No - Endocrine/Metabolic Hx Hypothyroidism: Yes - Hematological/Oncological Hx Cancer: Yes - Integumentary Hx Dermatological Disorder: No - Musculoskeletal/Rheumatological Hx Arthritis: Yes - Gastrointestinal Other/Comment: Hx oral cancer with radiation - Genitourinary/Gynecological Hx Genitourinary Disorders: No - Psychiatric Hx Psychophysiologic Disorder: No Hx Substance Use: No - Surgical History Hx Orthopedic Surgery: Yes - Anesthesia Hx Anesthesia: No Family/Social History - Physician Review Nursing Documentation Reviewed: Yes Family/Social History: No Known Family HX Smoking Status: Former Smoker Hx Alcohol Use: No Hx Substance Use: No Allergies/Home Meds Allergies/Adverse Reactions: Allergies levofloxacin Adverse Reaction (Intermediate, Verified 05/30/18 15:09) SWELLING R leg neuropathy albuterol Adverse Reaction (Verified 05/30/18 15:10) COUGH Home Medications: Home Meds Medication Instructions Recorded Confirmed Aspirin [Ecotrin] 81 mg PO DAILY 08/13/17 05/30/18 Atorvastatin [Lipitor] 20 mg PO DAILY 08/13/17 05/30/18 Clopidogrel [Plavix] 75 mg PO DAILY 08/13/17 05/30/18 Levothyroxine [Synthroid] 0.1 mg PO DAILY 08/13/17 05/30/18 Nebivolol HCl [Bystolic] 2.5 mg PO DAILY 12/26/17 05/30/18 Amoxicillin/Clavulanate [Augmentin 1 tab PO BID 05/30/18 05/30/18 875 MG-125 MG Tab] predniSONE [predniSONE Tab] 5 mg PO BID 05/30/18 05/30/18 Review of Systems - Physician Review All systems were reviewed & negative as marked: Yes - Review of Systems Constitutional: absent: Fevers Respiratory: SOB, Cough, Wheezing Cardiovascular: Chest Pain (tightness) Gastrointestinal: absent: Abdominal Pain, Diarrhea, Nausea, Vomiting Genitourinary Female: absent: Dysuria, Frequency, Hematuria Musculoskeletal: absent: Back Pain, Neck Pain Neurological: absent: Headache, Dizziness Physical Exam - Physical Exam Narrative Physical Exam (Text): Gen: VS reviewed, alert, well developed, well nourished, nontoxic, mild distress. ENT: normal pharynx. Eye: EOMI, PERRL. Neck: no JVD, supple, no adenopathy. CV: regular rate, regular rhythm, no rubs, no murmur, no gallops, S1, S2, pulses equal and strong. Pulm: no distress, faint bilateral expiratory wheeze with fair air exchange bilaterally. no rhonchi, breath sounds equal, no rales. Abd: soft, nontender, no guarding, no rebound, no rigidity, normal bowel sounds. Ext: Trace edema lower extremity bilaterally. Skin: good color, no rash, no cyanosis. Psych: responds appropriately to questions, normal affect. Neuro: oriented x 3, CN2-12 intact grossly, motor intact, sensation intact. Vital Signs Reviewed: Yes Vital Signs Temp Pulse Resp BP Pulse Ox 05/30/18 14:36 98.3 F 80 23 158/72 H 96 Temperature: Afebrile Blood Pressure: Hypertensive Pulse: Regular Respiratory Rate: Normal Medical Decision Making ED Course and Treatment: 05/30/18 14:40 Impression: 88 year old female presents complaining shortness of breath productive cough, and chest tightness for the past 5 days. Plan: -- VBG -- EKG -- Labs -- CXR -- Solu-medrol, Xopenex -- Rapid Flu -- Reassess and disposition Prior Visits: Notes and results from previous visits were reviewed. Progress Notes: 05/30/18 17:[address] Johansen covering Dr. Chan who is aware and agrees with the plan. Accepts patient into his service. Also request ABG.Patient to be admitted for COPD exacerbation, borderline hypoxix without respiratory distress. Wheezing and dyspnea did improve with ED medications but persistent and will require further neb tx and systemic corticosteroids. 05/30/18 17:55 - RAD Interpretation Narrative RAD Interpretations (Text): Chest X-Ray Dictated By: Mai Colon MD Date Signed: 05/30/18 Impression: Hyperinflation/emphysema. Biapical pleural thickening, Moderate to large hiatal hernia Radiology Orders: 05/30/18 14:49 CXR [CHEST TWO VIEWS (PA/LAT)] [RAD] Stat Engineer Booster And Exhauster: Radiologist - EKG Interpretation EKG Interpretation (Text): 05/30/18 17:53 1444: ekg my read: sinus rhythm at 85 bpm, 1st degreee av block, nml qrs, nonspecific t wave abn, artifact Interpreted by ED Physician: Yes Type: 12 lead EKG - Medication Orders Current Medication Orders: Albuterol/Ipratropium (Duoneb 3 Mg/0.5 Mg (3 Ml) Ud) 3 ml IH Q15M DERICK Stop: 05/30/18 15:31 Discontinued Medications Methylprednisolone (Solu-Medrol) 60 mg IVP STAT STA Stop: 05/30/18 14:50 Last Admin: 05/30/18 15:11 Dose: 60 mg IVP Administration Document 05/30/18 15:11 SRE (Rec: 05/30/18 15:14 SRE [id number]) Charges for Administration # of IVP Administrations 1 - Scribe Statement The provider has reviewed the documentation as recorded by the Scribe Marley Arredondo Provider Scribe Attestation: All medical record entries made by the Scribe were at my direction and personally dictated by me. I have reviewed the chart and agree that the record accurately reflects my personal performance of the history, physical exam, medical decision making, and the department course for this patient. I have also personally directed, reviewed, and agree with the discharge instructions and disposition. Disposition/Present on Arrival - Present on Arrival Any Indicators Present on Arrival: No History of DVT/PE: No History of Uncontrolled Diabetes: No Urinary Catheter: No History of Decub. Ulcer: No History Surgical Site Infection Following: None - Disposition Have Diagnosis and Disposition been Completed?: Yes Diagnosis: COPD exacerbation Disposition: HOSPITALIZED Disposition Time: 17:57 Patient Plan: Admission Condition: STABLE Referrals: Gennaro Chan MD [Primary Care Provider] - Follow up with primary Forms: [employer] (Mongolian)
[2018-05-30 15:20] LABS: BASO # 0.04 {null, K/mm3} (0.0-2.0); BASO % 0.7 % (0.0-3.0); EOS # 0.2 (0.0-0.7); EOS % 4.3 % (1.5-5.0); HEMOGLOBIN 12.7 g/dL (12.0-16.0); LYMPH # 1.5 (1.2-3.4); LYMPH % 26.2 % (22.0-35.0); MEAN CELL VOLUME 96.6 fl (80.0-105.0); MEAN CORPUSCULAR HGB CONC 32.1 g/dl (31.0-37.0); MEAN PLATELET VOLUME 10.2 fl (7.0-11.0); MONO # 0.8 (0.1-0.6); MONO % 13.3 % (1.0-6.0); RBC 4.1 {null, 10^6/uL} (3.5-6.1); RED CELL DISTRIBUTION WIDTH 14.2 % (11.5-14.5); WHITE BLOOD COUNT 5.6 {null, 10^3/uL} (4.5-11.0)
[2018-05-30 15:25] LABS: ALB/GLOB RATIO 1.2 (1.1-1.8); ALBUMIN 3.8 g/dL (3.0-4.8); ALT/SGPT 15 U/L (7-56); AST/SGOT 22 U/L (14-36); BLOOD UREA NITROGEN 16 mg/dL (7-21); CALCIUM 9.4 mg/dL (8.4-10.5); GFR NON-AFRICAN AMERICAN 59
[2018-05-30 15:35] LABS: B-TYPE NATRIURETIC PEPTIDE 239 pg/mL (0-450)
--- NOTE | 2018-05-30 16:38 | RAD ---
HISTORY: cough, pneumonia COMPARISON: Chest x-ray performed 12/26/17 TECHNIQUE: Chest PA and lateral FINDINGS: LUNGS: Biapical pleural thickening. Increased lucencies especially within the bilateral upper lung bullard compatible with underlying emphysema. No focal consolidation. Evidence of moderate to large hiatal hernia. Please note that chest x-ray has limited sensitivity for the detection of pulmonary masses. PLEURA: No significant pleural effusion identified. No definite pneumothorax . CARDIOVASCULAR: Heart size appears top normal. Atherosclerotic calcifications of the aorta. OSSEOUS STRUCTURES: Osseous demineralization. Kyphosis. Multilevel degenerative changes. VISUALIZED UPPER ABDOMEN: Unremarkable. OTHER FINDINGS: None. IMPRESSION: Hyperinflation/emphysema. Biapical pleural thickening. Moderate to large hiatal hernia.
[2018-05-30] MEDS ORDERED: Azithromycin 500 MG in Sodium Chloride 0.9% 250 ML IVPB STA (17:04)
[2018-05-30 17:14] LABS: ARTERIAL BLOOD GAS HCO3 23.9 mmol/L (21-28); ARTERIAL BLOOD GAS HEMOGLOBIN 12.4 g/dL (11.7-17.4); ARTERIAL BLOOD GAS O2 CAPACITY 16.9 mL/dl (16-24); ARTERIAL BLOOD GAS O2 CONTENT 15.1 ML/dl (15-23); ARTERIAL BLOOD GAS O2 SAT 89.4 % (95-98); ARTERIAL BLOOD GAS PCO2 36 mm/Hg (35-45); ARTERIAL BLOOD GAS PH 7.43 (7.35-7.45)
[2018-05-30] MEDS ORDERED: Levalbuterol 1.25 MG/3 ML Inhal Soln UD IH PRN (17:42)
[2018-05-30] MEDS ORDERED: cefTRIAXone 1 gm 1 GM/100 ML BAG IVPB STA (17:45)
[2018-05-30] MEDS ORDERED: Azithromycin 500MG/NS 250ml 500 MG/250 ML BAG IVPB STA (17:51)
--- NOTE | 2018-05-30 18:00 | CP.PCM.HP ---
History of Present Illness - History of Present Illness History of Present Illness: Chuy Anton, PGY-1, Internal Medicine History and Physical for Dr. Johansen 88 year old female with past medical history of COPD, hypothyroidism, hyperlipidemia, hypertension, and oral cancer in remission for the past 3 years presented to the emergency department for shortness of breath and dry cough for 3 days. Patient's last COPD exacerbation was in 12/2017. Patient reported thatshe takes xopenex, pulmicort, and prednisone at home for COPD, however, her respiratory status was markedly worse these past few days. Patient saw Dr. Chan and family reported that she was given amoxicillin and tessalon for COPD. Last night, symptoms worsened, which prompted patient to present to the hospital for evaluation. Upon presentation to the hospital, patient was given solumedrol 60 mg and xopenex twice with improvement in respiratory symptoms. Patient denied fever, headache, chest pain, heart palpitations, nausea, vomiting, constipation, diarrhea, dysuria, hematuria. 12-point ROS was unremarkable except for what was mentioned above. PMH: COPD, hypothyroidism, hyperlipidemia, hypertension, oral cancer PSH: oral cancer surgery, right knee replacement, bilateral feet reconstruction FMHx: denies Allergies: levaquin, albuterol SHx: 1 PPD for 30 years and has now stopped smoking, 4 glasses of wine a few times a week which has now stopped, and denies recreational drug use PMD: Dr. Chan Medications: synthyroid, prednisone, lipitor, plavix, aspirin, bystolic, budesonide, xopenex Present on Admission - Present on Admission Any Indicators Present on Admission: No Review of Systems - Review of Systems Review of Systems: except for what was mentioned in HPI Past Patient History - Infectious Disease Hx of Infectious Diseases: None - Past Social History Smoking Status: Former Smoker - CARDIAC Hx Hypertension: Yes - PULMONARY Hx Chronic Obstructive Pulmonary Disease (COPD): Yes Hx Emphysema: Yes - NEUROLOGICAL Hx Neurological Disorder: Yes Hx Alzheimer's Disease: Yes - HEENT Hx HEENT Problems: No - RENAL Hx Chronic Kidney Disease: No - ENDOCRINE/METABOLIC Hx Hypothyroidism: Yes - HEMATOLOGICAL/ONCOLOGICAL Hx Cancer: Yes - INTEGUMENTARY Hx Dermatological Problems: No - MUSCULOSKELETAL/RHEUMATOLOGICAL Hx Arthritis: Yes - GASTROINTESTINAL Other/Comment: Hx oral cancer with radiation - GENITOURINARY/GYNECOLOGICAL Hx Genitourinary Disorders: No - PSYCHIATRIC Hx Psychophysiologic Disorder: No Hx Substance Use: No - SURGICAL HISTORY Hx Orthopedic Surgery: Yes - ANESTHESIA Hx Anesthesia: No Meds Allergies/Adverse Reactions: Allergies Allergy/AdvReac Type Severity Reaction Status Date / Time levofloxacin AdvReac Intermediate SWELLING Verified 05/30/18 15:09 albuterol AdvReac COUGH Verified 05/30/18 15:10 Physical Exam - Constitutional Appears: Well, Non-toxic, No Acute Distress - Head Exam Head Exam: ATRAUMATIC, NORMAL INSPECTION, NORMOCEPHALIC - Eye Exam Eye Exam: EOMI, PERRL - ENT Exam ENT Exam: Mucous Membranes Moist - Respiratory Exam Respiratory Exam: Wheezes (diffuse but mild) - Cardiovascular Exam Cardiovascular Exam: REGULAR RHYTHM, RRR - GI/Abdominal Exam GI & Abdominal Exam: Normal Bowel Sounds, Soft. absent: Tenderness - Extremities Exam Extremities exam: Positive for: full ROM - Neurological Exam Neurological exam: Alert, CN II-XII Intact, Oriented x3 - Skin Skin Exam: Dry, Intact, Normal Color Results - Vital Signs Recent Vital Signs: Last Vital Signs Temp 98.3 F 05/30/18 14:36 Pulse 80 05/30/18 14:36 Resp 24 05/30/18 14:48 BP 158/72 H 05/30/18 14:36 Pulse Ox 96 05/30/18 14:36 - Labs Result Diagrams: 05/30/18 15:10 05/30/18 15:10 Labs: Laboratory Results - last 24 hr 05/30/18 05/30/18 05/30/18 15:06 15:10 15:10 WBC 5.6 RBC 4.10 Hgb 12.7 Hct 39.6 MCV 96.6 D MCH 31.0 MCHC 32.1 RDW 14.2 Plt Count 170 MPV 10.2 Neut % (Auto) 55.5 Lymph % (Auto) 26.2 [place] % (Auto) 13.3 H Eos % (Auto) 4.3 Baso % (Auto) 0.7 Lymph # (Auto) 1.5 [place] # (Auto) 0.8 H Eos # (Auto) 0.2 Baso # (Auto) 0.04 Absolute Neuts (auto) 3.13 pCO2 pO2 23 L HCO3 ABG pH ABG Total CO2 ABG O2 Saturation ABG O2 Content ABG Base Excess ABG Hemoglobin ABG Carboxyhemoglobin POC ABG HHb (Measured) ABG Methemoglobin ABG O2 Capacity VBG pH 7.36 VBG pCO2 50.0 VBG HCO3 28.2 H VBG Total CO2 29.7 H VBG O2 Sat (Calc) 45.2 VBG Base Excess 1.9 VBG Potassium 4.1 Hgb O2 Saturation Sodium 138.0 Chloride 106.0 Glucose 89 Lactate 1.1 FiO2 21.0 Crit Value Called To Dr bernabe Crit Value Called By Rikki calvin Blood Gas Notified Time 1516 Potassium Carbon Dioxide Anion Gap BUN Creatinine Est GFR ( Amer) Est GFR (Non-Af Amer) Random Glucose Calcium Magnesium Total Bilirubin AST ALT Alkaline Phosphatase NT-Pro-B Natriuret Pep Total Protein Albumin Globulin Albumin/Globulin Ratio Venous Blood Potassium 4.1 Influenza Typ A,B (EIA) Negative for flu a/b 05/30/18 05/30/18 15:10 17:05 WBC RBC Hgb Hct MCV MCH MCHC RDW Plt Count MPV Neut % (Auto) Lymph % (Auto) [place] % (Auto) Eos % (Auto) Baso % (Auto) Lymph # (Auto) [place] # (Auto) Eos # (Auto) Baso # (Auto) Absolute Neuts (auto) pCO2 36 pO2 49.0 L HCO3 23.9 ABG pH 7.43 ABG Total CO2 25.0 ABG O2 Saturation 89.4 L ABG O2 Content 15.1 ABG Base Excess -0.1 ABG Hemoglobin 12.4 ABG Carboxyhemoglobin 2.2 H POC ABG HHb (Measured) 10.3 H ABG Methemoglobin 0.8 ABG O2 Capacity 16.9 VBG pH VBG pCO2 VBG HCO3 VBG Total CO2 VBG O2 Sat (Calc) VBG Base Excess VBG Potassium Hgb O2 Saturation 86.7 L Sodium 139 Chloride 106 Glucose Lactate FiO2 21.0 Crit Value Called To Crit Value Called By Blood Gas Notified Time Potassium 4.2 Carbon Dioxide 28 Anion Gap 8 L BUN 16 Creatinine 0.9 Est GFR ( Amer) > 60 Est GFR (Non-Af Amer) 59 Random Glucose 87 Calcium 9.4 Magnesium 1.8 Total Bilirubin 0.7 AST 22 ALT 15 Alkaline Phosphatase 110 NT-Pro-B Natriuret Pep 239 Total Protein 7.1 Albumin 3.8 Globulin 3.3 Albumin/Globulin Ratio 1.2 Venous Blood Potassium Influenza Typ A,B (EIA) Assessment & Plan - Assessment and Plan (Free Text) Assessment: 88 year old female with past medical history of COPD, hypothyroidism, h yperlipidemia, hypertension, and oral cancer in remission for the past 3 years presented to the emergency department for shortness of breath and dry cough for 3 days. Patient was admitted for hypoxic respiratory failure likely 2/2 to COPD Plan: Hypoxemic respiratory failure 2/2 to COPD exacerbation vs. pneumonia vs. PE -ABG: pH: 7.43, pO2: 49, pCO2: 36. Inconsistent with examination -CXR: emphysema -Influenza screen negative -Follow up blood, urine culture, procalcitonin. Lactate 1.7 on admission. -Follow up M. pneumonia, Legionella urine antigen -Follow up CTA to rule out PE -Patient given solumedrol 60 mg and xopenex x 2 in the emergency department -Start solumedrol 60 mg once, xopenex Q6, brovana, and pulmicort -Started solumedrol 40 mg Q6 -Supportive treatment with tessalon perles -Started doxycycline and ceftriaxone for suspected -Follow up repeat ABG Carotid artery stenosis -Continue with home aspirin, plavix and lipitor Hyperlipidemia -Continue with home lipitor Hypothyroidism -Continue with home synthyroid Insomnia -Started ambien GI prophylaxis: protonix 40 mg daily DVT prophylaxis: lovenox 40 mg daily Patient plan discussed with Dr. Johansen. - Date & Time Date: 05/30/18 Time: 18:00
[2018-05-30 19:41] LABS: INR 1.14; PARTIAL THROMBOPLASTIN TIME 30.2 Seconds (26.9-38.3); PROTHROMBIN TIME 12.6 SECONDS (9.4-12.5)
[2018-05-30] MEDS ORDERED: Arformoterol 15 mcg/2 ml Inh Sol IH SCH (20:00)
[2018-05-30] MEDS: MethylPREDNISolone 40 mg Vial IVP SCH (20:42)
[2018-05-30] MEDS: POLYETHYLENE GLYCOL 3350 17 GM/Dose PACKET PO SCH (20:42)
[2018-05-30] MEDS: Lactated Ringer's 1,000 ML IV SCH (20:43)
[2018-05-30] MEDS: Levalbuterol 1.25 MG/3 ML Inhal Soln UD IH SCH (20:50)
[2018-05-30] MEDS: Budesonide 0.5 mg/2 ml Inhal Susp UD IH SCH (20:50)
[2018-05-30 22:07] LABS: ARTERIAL BLOOD GAS HCO3 22.7 mmol/L (21-28); ARTERIAL BLOOD GAS HEMOGLOBIN 12.1 g/dL (11.7-17.4); ARTERIAL BLOOD GAS O2 CAPACITY 16.5 mL/dl (16-24); ARTERIAL BLOOD GAS O2 CONTENT 14.9 ML/dl (15-23); ARTERIAL BLOOD GAS O2 SAT 90.3 % (95-98); ARTERIAL BLOOD GAS PCO2 35 mm/Hg (35-45); ARTERIAL BLOOD GAS PH 7.42 (7.35-7.45); ARTERIAL BLOOD GAS TCO2 23.8 mmol.L (22-28)
--- NOTE | 2018-05-30 22:46 | CP.PCM.PN ---
<Raul Lopez - Last Filed: 05/30/18 22:40> Subjective - Date & Time of Evaluation Date of Evaluation: 05/30/18 Time of Evaluation: 22:40 - Subjective Subjective: Conrad Perry, PGY1 S - Following up repeat ABG given from signout - repeat pO2 49 - Previous abg showed hypoxemia - pO2 49 O - Patient is comfortable. No signs of respiratory distress or accessory muscle use. Mild wheezing bilateral. - She is using incentive spirometer and head of bed is elevated. She is not endorsing sob at this time. - Patient currently on nasal cannula 2L and saturating well 96% on room air A - shortness of breath P - repeat abg shows pO2 49; d/w respiratory therapist that repeat blood gas was with patient off nasal cannula. - patient should continue on nasal cannula - pending Chest CT to r/o PE as ordered by Day Team - will continue to monitor patient at this time Objective - Vital Signs/Intake and Output Vital Signs (last 24 hours): Temp Pulse Resp BP Pulse Ox 98 F 76 22 130/68 94 L 05/30/18 18:34 05/30/18 18:34 05/30/18 18:34 05/30/18 18:34 05/30/18 18:34 - Medications Medications: Current Medications Acetaminophen (Tylenol 325mg Tab) 650 mg PO Q6 PRN PRN Reason: TEMP>=99.5F Acetaminophen (Tylenol 650 Mg Supp) 650 mg RC Q6H PRN PRN Reason: TEMP>=99.5F Aspirin (Ecotrin) 81 mg PO DAILY [facility] Atorvastatin Calcium (Lipitor) 20 mg PO DAILY [facility] Benzonatate (Tessalon Perles) 100 mg PO TID PRN PRN Reason: Cough Last Admin: 05/30/18 20:42 Dose: 100 mg Benzonatate (Tessalon Perles) 200 mg PO TID [facility] Budesonide (Pulmicort Respules) 0.5 mg IH [id number] [facility] Clopidogrel Bisulfate (Plavix) 75 mg PO DAILY [facility] Docusate Sodium (Colace) 100 mg PO TID [facility] Enoxaparin Sodium (Lovenox) 40 mg SC DAILY [facility]; Protocol Doxycycline Hyclate 100 mg/ (Sodium Chloride) 100 mls @ 100 mls/hr IVPB Q12 [facility]; Protocol Last Admin: 05/30/18 21:35 Dose: 100 mls/hr Ceftriaxone Sodium (Rocephin 2 Gm Ivpb) 2 gm in 100 mls @ 100 mls/hr IVPB DAILY [facility]; Protocol Lactated Ringer's (Lactated Ringer's) 1,000 mls @ 60 mls/hr IV .[id number] [facility] Last Admin: 05/30/18 20:43 Dose: 60 mls/hr Levalbuterol HCl (Xopenex) 1.25 mg IH [id number] [facility] Levothyroxine Sodium (Synthroid) 100 mcg PO DAILY [facility] Methylprednisolone (Solu-Medrol) 40 mg IVP Q6H [facility] Last Admin: 05/30/18 20:42 Dose: 40 mg Ondansetron HCl (Zofran Inj) 4 mg IVP Q4H PRN PRN Reason: Nausea/Vomiting Pantoprazole Sodium (Protonix Ec Tab) 40 mg PO DAILY [facility] Polyethylene Glycol (Miralax) 17 gm PO BID [facility] Last Admin: 05/30/18 20:42 Dose: 17 gm Zolpidem Tartrate (Ambien) 5 mg PO HS PRN; Protocol PRN Reason: Insomnia Last Admin: 05/30/18 21:37 Dose: 5 mg - Labs Labs: 05/30/18 15:10 05/30/18 15:10 PT 12.6 SECONDS (9.4-12.5) H 05/30/18 19:23 INR 1.14 05/30/18 19:23 APTT 30.2 Seconds (26.9-38.3) 05/30/18 19:23 <Davi Leslie - Last Filed: 05/31/18 01:01> Objective - Vital Signs/Intake and Output Vital Signs (last 24 hours): Temp Pulse Resp BP Pulse Ox 98 F 84 20 121/67 91 L 05/30/18 23:16 05/30/18 23:16 05/30/18 23:16 05/30/18 23:16 05/30/18 23:16 - Medications Medications: Current Medications Acetaminophen (Tylenol 325mg Tab) 650 mg PO Q6 PRN PRN Reason: TEMP>=99.5F Acetaminophen (Tylenol 650 Mg Supp) 650 mg RC Q6H PRN PRN Reason: TEMP>=99.5F Aspirin (Ecotrin) 81 mg PO DAILY [facility] Atorvastatin Calcium (Lipitor) 20 mg PO DAILY [facility] Benzonatate (Tessalon Perles) 100 mg PO TID PRN PRN Reason: Cough Last Admin: 05/30/18 20:42 Dose: 100 mg Benzonatate (Tessalon Perles) 200 mg PO TID [facility] Budesonide (Pulmicort Respules) 0.5 mg IH [id number] [facility] Clopidogrel Bisulfate (Plavix) 75 mg PO DAILY [facility] Docusate Sodium (Colace) 100 mg PO TID [facility] Enoxaparin Sodium (Lovenox) 40 mg SC DAILY [facility]; Protocol Doxycycline Hyclate 100 mg/ (Sodium Chloride) 100 mls @ 100 mls/hr IVPB Q12 [facility]; Protocol Last Admin: 05/30/18 21:35 Dose: 100 mls/hr Ceftriaxone Sodium (Rocephin 2 Gm Ivpb) 2 gm in 100 mls @ 100 mls/hr IVPB DAILY [facility]; Protocol Lactated Ringer's (Lactated Ringer's) 1,000 mls @ 60 mls/hr IV .[id number] [facility] Last Admin: 05/30/18 20:43 Dose: 60 mls/hr Levalbuterol HCl (Xopenex) 1.25 mg IH [id number] [facility] Levothyroxine Sodium (Synthroid) 100 mcg PO DAILY [facility] Methylprednisolone (Solu-Medrol) 40 mg IVP Q6H [facility] Last Admin: 05/30/18 20:42 Dose: 40 mg Ondansetron HCl (Zofran Inj) 4 mg IVP Q4H PRN PRN Reason: Nausea/Vomiting Pantoprazole Sodium (Protonix Ec Tab) 40 mg PO DAILY [facility] Polyethylene Glycol (Miralax) 17 gm PO BID [facility] Last Admin: 05/30/18 20:42 Dose: 17 gm Zolpidem Tartrate (Ambien) 5 mg PO HS PRN; Protocol PRN Reason: Insomnia Last Admin: 05/30/18 21:37 Dose: 5 mg - Labs Labs: 05/30/18 15:10 05/30/18 15:10 PT 12.6 SECONDS (9.4-12.5) H 05/30/18 19:23 INR 1.14 05/30/18 19:23 APTT 30.2 Seconds (26.9-38.3) 03/02/19 19:23 Attending/Attestation - Attestation I have personally seen and examined this patient.: Yes I have fully participated in the care of the patient.: Yes I have reviewed all pertinent clinical information, including history, physical exam and plan: Yes Notes (Text): 05/31/18 01:00 Asymptomatic,Pulse ox 91% on RA. Will observe.
[2018-05-31] MEDS: MethylPREDNISolone 40 mg Vial IVP SCH ×5 (01:46→23:57)
[2018-05-31] MEDS: Levalbuterol 1.25 MG/3 ML Inhal Soln UD IH SCH ×3 (02:40→22:15)
[2018-05-31] MEDS: Budesonide 0.5 mg/2 ml Inhal Susp UD IH SCH ×2 (07:29→22:15)
[2018-05-31 08:24] LABS: LYMPH # 0.9 (1.2-3.4); LYMPH % 28.4 % (22.0-35.0); MEAN CELL VOLUME 94.8 fl (80.0-105.0); MEAN CORPUSCULAR HEMOGLOBIN 29.9 pg (25.0-35.0); MEAN CORPUSCULAR HGB CONC 31.5 g/dl (31.0-37.0); MEAN PLATELET VOLUME 10.1 fl (7.0-11.0); MONO # 0.1 (0.1-0.6); RBC 4.02 {null, 10^6/uL} (3.5-6.1); RED CELL DISTRIBUTION WIDTH 13.7 % (11.5-14.5)
[2018-05-31 08:35] LABS: ALB/GLOB RATIO 1.2 (1.1-1.8); ALBUMIN 3.7 g/dL (3.0-4.8); ALT/SGPT 11 U/L (7-56); AST/SGOT 19 U/L (14-36); BILIRUBIN,DIRECT 0.3 mg/dL (0.0-0.4); BLOOD UREA NITROGEN 14 mg/dL (7-21); CALCIUM 9.3 mg/dL (8.4-10.5); GFR NON-AFRICAN AMERICAN > 60; HDL CHOLESTEROL 46 mg/dL (29-60)
[2018-05-31 08:43] LABS: LDL CHOLESTEROL 85 mg/dL (0-129)
[2018-05-31] MEDS: Pantoprazole 40 mg EC Tab PO SCH (09:55)
[2018-05-31] MEDS: Levothyroxine 100 MCG TAB PO SCH (09:55)
[2018-05-31] MEDS: POLYETHYLENE GLYCOL 3350 17 GM/Dose PACKET PO SCH ×2 (10:00→18:19)
[2018-05-31] MEDS: Enoxaparin 40 mg Syringe SC SCH (10:01)
[2018-05-31] MEDS: Lactated Ringer's 1,000 ML IV SCH ×2 (11:40→18:22)
[2018-05-31] MEDS: cefTRIAXone 2 GM IN NS 2 GM/100 ML BAG IVPB SCH (14:45)
--- NOTE | 2018-05-31 15:07 | US ---
HISTORY: Leg pain and swelling. Evaluate for DVT PHYSICIAN(S): Sonido Nicholson MD. TECHNIQUE: Duplex sonography and color-flow Doppler with graded compression were used to evaluate the deep venous systems of both lower extremities. FINDINGS: The visualized deep venous systems of both lower extremities are sonographically normal and compressible. Normal wave forms and augmentation are seen. There is no sonographic evidence for deep venous thrombosis in the visualized segments of both lower extremities. Incidental note is made of small bilateral Campoverde's cysts IMPRESSION: No sonographic evidence for deep venous thrombosis in the visualized segments of both lower extremities.
--- NOTE | 2018-05-31 15:52 | CT ---
Date of service: 05/31/2018 CT chest without IV contrast Indication: HYPOXEMIA/AECOPD Technique: Contiguous axial images were obtained through the chest without intravenous contrast enhancement. Sagittal and coronal reconstructions were generated and reviewed. This CT exam was performed using 1 or more of the following dose reduction techniques: Automated exposure control, adjustment of the MAA and/or kV according to patient size, and/or use of iterative reconstruction technique. Radiation dose (DLP): 361.33 MGy-cm. Comparison: CT chest without contrast performed 12/18/17, chest x-ray performed 05/30/18 Findings: Bilateral carotid artery calcifications, partially imaged. Visualized portions of the inferior thyroid gland appear unremarkable. The unenhanced mediastinal and hilar vascular structures demonstrate atherosclerotic calcifications, otherwise normal limits. The heart appears within normal limits of size. Coronary artery and valvular calcifications. Dense atherosclerotic calcifications of the aorta and branches. Hyperinflation. Biapical fibrosis/scarring. Emphysematous changes. No focal consolidation. No pleural effusion. No pneumothorax. Large hiatal hernia. Limited visualization of the noncontrast upper abdomen: Again seen is a dense peripherally calcified hypodense mass previously demonstrated separate from the gallbladder. Limited visualization of the gallbladder with gallstones evident. Osseous demineralization. Kyphosis. Multilevel degenerative changes. Scoliosis convex to the right. Impression: COPD/emphysema. Biapical fibrosis/scarring. Large hiatal hernia. Limited visualization of the noncontrast upper abdomen: Again seen is a dense peripherally calcified hypodense mass previously demonstrated separate from the gallbladder. Limited visualization of the gallbladder with gallstones evident. Additional findings as above.
--- NOTE | 2018-05-31 16:39 | CARD ---
APPROVED REPORT Date of service: 05/30/2018 EKG Measurement Heart [id number] <Conclusion> Sinus rhythm with 1st degree AV block with occasional premature ventricular complexes Nonspecific ST and T wave abnormality Abnormal ECG
--- NOTE | 2018-05-31 22:34 | PN ---
DATE: 05/31/2018 SUBJECTIVE: The patient is seen sitting up in the bed in Room 268, Bed 1. The patient's daughter is at bedside. Overnight nurse's notes were reviewed. The patient slept well without any adverse event, required supplemental oxygen. PHYSICAL EXAMINATION VITAL SIGNS: T-max 97.7. Telemetry shows normal sinus rhythm, heart rate 70's, 80's and 90 beats per minute, blood pressure is averaging around 120's and 130's systolic, diastolic in 70's and 60's. Respiration 18, O2 sat on oxygen supplementation is 93% to 94%. The patient is on nasal cannula. HEENT: Head examination normocephalic, atraumatic. HEENT examination shows pink conjunctivae. Anicteric sclerae. No oropharyngeal lesion. NECK: No neck rigidity. CHEST: Kyphosis. CARDIOPULMONARY: S1, S2, regular rhythm. Questionable soft systolic murmur left sternal border, right second intercostal space, left second intercostal space. LUNGS: Shows decreasing wheezing but decreased air entry persists, but decreased air entry noted. ABDOMEN: Soft. Positive bowel sounds. No palpable hepatosplenomegaly. GENITALIA: Female. RECTAL: Deferred. EXTREMITIES: Shows positive swelling of the lower extremity. No calf numbness. No Homans' sign. NEUROLOGIC: The patient is alert, awake, responsive, is able to move upper and lower extremity without assistance. GAIT: Not tested. MUSCULOSKELETAL: Shows a body mass index of 27.5. LABORATORY DATA: From 05/31/2018; WBC 3.0, down from 5.6, hemoglobin/hematocrit 12 and 38.1, platelets 173. D-dimer 235. Repeat ABGs from yesterday was reviewed. The patient persisted to have a pO2 of 49. Chemistry is only CMP, LFTs were reviewed. Cholesterol 146, LDL 85. Procalcitonin level 0.05, glucose 132. Influenza negative. Urine Legionella, Mycoplasma negative. The patient's CT of the chest, ultrasound of the lower extremity reviewed and explained to the patient and the patient's daughter present in the room. The patient's EKG reviewed. CURRENT MEDICATIONS: Ambien 5 mg at bedtime p.r.n., Cardizem 30 mg every 6 hours, Colace 100 mg three times a day, doxycycline 100 mg IV every 12 hours, Ecotrin 81 mg daily, Ringer's lactate 60 mL an hour, Lipitor 20 mg daily, Lovenox 40 mg subcutaneous daily, Lovenox 40 mg subcutaneous daily for DVT prophylaxis, MiraLax 17 g twice a day, Plavix 75 mg daily, Protonix 40 mg daily, Pulmicort nebulizer 0.5 mg every 12 hours, Rocephin 2 g IV daily, Solu-Medrol 40 mg IV every 6 hours, Synthroid 100 mcg daily, Tessalon Perles 200 three times a day, Tylenol 650 mg p.o. suppository every 6 hours p.r.n., Xopenex nebulizer 1.25 mg every 6 hours, Zofran 4 mg IV every 4 hours. IMPRESSION AND PLAN: 1. Acute hypoxic respiratory failure secondary to acute exacerbation of chronic obstructive pulmonary disease with wheezing and bronchospasm. 2. Hypoxemia. 3. Leukopenia. 4. Persistent refractory hypoxemia. 5. Advanced chronic obstructive pulmonary disease. 6. History of former nicotine addiction and dependence. 7. Bilateral carotid artery calcification. 8. Bilateral biapical fibrosis scarring and hyperinflation and emphysematous changes. 9. Cholelithiasis with dense peripherally calcified hypodense mass separate from the gallbladder. 10. Large hiatal hernia. 11. Chronic obstructive pulmonary disease, emphysema, and biapical fibrosis scarring. 12. Large hiatal hernia. 13. History of right lower extremity deep vein thrombosis. 14. History of hypertension. 15. Hyperlipidemia. 16. Hypothyroidism. 17. History of hiatal hernia. 18. History of gait dysfunction with the use of rollator. 19. History of advanced chronic obstructive pulmonary disease. 20. History of right total knee replacement. 21. History of right leg squamous cell carcinoma, well-differentiated. 22. History of hepatic carcinoid. 23. History of cerebrovascular accident. 24. History of chronic obstructive pulmonary disease. 25. History of cervical spondylosis. 26. History of oral cancer. 27. History of chronic obstructive pulmonary disease exacerbation. 28. History of abnormal EEG in 2013 suggestive of left posterior temporal dysfunction, possibly suggesting clinical seizure without being diagnostic. 29. History of insomnia. PLAN: At this time, the patient is ordered repeat labs for the morning. Urine blood cultures results pending. Pulmonary consultation pending. Chest PT, incentive spirometry, oxygen 2 liters nasal cannula ordered. Echo with Doppler ordered for evaluation of possible pulmonary hypertension and for COPD exacerbation. IVONE stockings, out of bed, physical therapy, occupational therapy ordered. Transitional Care Unit evaluation ordered. The patient's condition, diagnosis, test results extensively discussed with the patient and the patient's daughter at length and all questions concerned answered. The patient and the patient's daughter was advised to contact [employer] to check if the patient is eligible for home O2 through her insurance. The patient's further management will be dependent upon the patient's clinical condition, hemodynamic status and as per the patient's response to therapeutic intervention as per the patient's diagnostic test results and as per recommendations by all the physicians involved in the care of the patient. Dictated and electronically signed, not read. David Johansen MD
[2018-06-01] MEDS: Levalbuterol 1.25 MG/3 ML Inhal Soln UD IH SCH ×4 (02:53→19:57)
[2018-06-01] MEDS: Lactated Ringer's 1,000 ML IV SCH ×2 (05:45→20:41)
[2018-06-01] MEDS: MethylPREDNISolone 40 mg Vial IVP SCH ×4 (05:46→23:05)
[2018-06-01] MEDS: Budesonide 0.5 mg/2 ml Inhal Susp UD IH SCH ×2 (08:33→19:57)
[2018-06-01 08:58] LABS: ALB/GLOB RATIO 1.1 (1.1-1.8); ALBUMIN 3.3 g/dL (3.0-4.8); ALT/SGPT 12 U/L (7-56); AST/SGOT 20 U/L (14-36); BILIRUBIN,DIRECT 0.2 mg/dL (0.0-0.4); BLOOD UREA NITROGEN 20 mg/dL (7-21); CALCIUM 9.1 mg/dL (8.4-10.5); GFR NON-AFRICAN AMERICAN > 60; HEMOGLOBIN 11.6 g/dL (12.0-16.0); LYMPH # 0.8 (1.2-3.4); LYMPH % 11.7 % (22.0-35.0); MEAN CELL VOLUME 94.2 fl (80.0-105.0); MEAN CORPUSCULAR HEMOGLOBIN 30.4 pg (25.0-35.0); MEAN CORPUSCULAR HGB CONC 32.2 g/dl (31.0-37.0); MEAN PLATELET VOLUME 10.2 fl (7.0-11.0); MONO # 0.3 (0.1-0.6); MONO % 4.9 % (1.0-6.0); RBC 3.82 {null, 10^6/uL} (3.5-6.1); RED CELL DISTRIBUTION WIDTH 13.8 % (11.5-14.5)
--- NOTE | 2018-06-01 09:03 | CON ---
DATE: 05/31/2018 PULMONARY CONSULTATION HISTORY OF PRESENT ILLNESS: We were asked to evaluate this 88-year-old woman who is known to us from previous admission to the hospital. She is currently going down for duplex ultrasound of her lower extremities. She is already starting on double antibiotic therapy with doxycycline and Rocephin. She is on inhalation therapy with budesonide and Brovana. The patient came to the emergency room with 3 days history of cough, some shortness of breath. She was in with exacerbation of COPD 4 months ago. She is on nebulizer treatments at home; however, her pulmonary status worsened markedly. Her private PMD is Dr. Chan. She was on amoxicillin at home. PAST MEDICAL HISTORY: Positive for COPD, hypothyroidism, hyperlipidemia, hypertension, oral cancer. ALLERGIES: SHE IS ALLERGIC TO LEVAQUIN AND ALBUTEROL. SOCIAL HISTORY: She is a former heavy smoker, who recently stopped. She is a social drinker and never used illicit drugs. HOME MEDICATIONS: Include Synthroid, prednisone, Lipitor, Plavix, aspirin, Bystolic, budesonide, and Xopenex. FAMILY HISTORY: Negative for inherited diseases. REVIEW OF SYSTEMS: Conducted by reviewing all sources. CARDIOVASCULAR: Denied chest pain, denied palpitations. PULMONARY: shortness of breath, cough GASTROINTESTINAL: No history of vomiting or diarrhea. All other systems negative. PHYSICAL EXAMINATION GENERAL: She is awake, alert, in no acute distress. VITAL SIGNS: As follows; temperature 98.3, pulse 80, respirations 24, blood pressure is 150/70, and pulse oximetry is 96% on nasal cannula. HEAD, EARS, NOSE, AND THROAT: Within normal limits. NECK: Supple. There is no jugular vein distensions. CARDIOVASCULAR: S1, S2. No S3. Regular. PULMONARY: Diminished breath sounds at both lung bases with few coarse of rhonchi. No wheezing. GI: Soft, nontender. No organomegaly. EXTREMITIES: No pedal edema. No cyanosis. SKIN: No acute skin rashes. NEUROLOGIC: No focal deficits. LABORATORY DATA: WBC is 5.6, hemoglobin 12.7. Sodium 139, potassium 4.2, chloride 106. Venous blood gas revealed normal pH of 7.36, pCO2 of 50, and oxygen saturation as mentioned above. Her arterial blood gas shows pH of 7.43, pCO of 36, and pO2 of 49, which was on the lower side. Additional data; chest x-ray was evaluated, there is no acute changes, specifically there are no infiltrates. The patient was checked for influenza and the influenza screen turned out to be negative. The patient was sent for CTA to rule out pulmonary emboli. The results of this as well as the results of venous Dopplers are pending but clinically doubt acute PE. ASSESSMENT: 1. Exacerbation of severe chronic obstructive pulmonary disease. 2. Hypoxia. 3. Hypothyroidism. 4. Hypertension. 5. Staple surgery for oral cancer. PLAN: The patient was started on Xopenex and budesonide by aerosol treatment. We will continue giving her supplemental oxygen. We will review the results of CT angiogram that was performed to rule out PE as well as venous Dopplers. The patient currently is on prophylactic dose of Lovenox. If warranted, the dose will increase to therapeutic. Will follow closely. Felipe Gaxiola MD MTDD
[2018-06-01] MEDS: POLYETHYLENE GLYCOL 3350 17 GM/Dose PACKET PO SCH ×2 (09:20→18:27)
[2018-06-01] MEDS: Enoxaparin 40 mg Syringe SC SCH (09:20)
[2018-06-01] MEDS: Pantoprazole 40 mg EC Tab PO SCH (09:21)
[2018-06-01] MEDS: cefTRIAXone 2 GM IN NS 2 GM/100 ML BAG IVPB SCH (09:22)
[2018-06-01] MEDS: Levothyroxine 100 MCG TAB PO SCH (09:24)
--- NOTE | 2018-06-01 10:14 | PN ---
DATE: 06/01/2018 SUBJECTIVE: The patient appears comfortable this morning. She is not short of breath at rest. PHYSICAL EXAMINATION: VITAL SIGNS: Temperature 97.8, pulse 72, respirations 18/20, blood pressure 116/54. Oxygen saturation on nasal cannula is 97%. HEENT: Normocephalic, atraumatic. NECK: No JVD. CARDIOVASCULAR: Systolic ejection murmur at the lower left sternal border. No S3 gallop. LUNGS: Decreased breath sounds at the bases. Minimal rhonchi. No wheezing. EXTREMITIES: No clubbing, cyanosis or edema. Calves are nontender to palpation. GI: Abdomen is soft, nontender and nondistended. Bowel sounds are positive. SKIN: No acute rash. NEUROLOGIC: Exam limited at the present time. PERTINENT LABORATORY DATA: CAT scan of the chest was done yesterday and reviewed. There are findings consistent with chronic obstructive pulmonary disease/emphysema. There is also biapical fibrosis/scarring. There is no focal consolidation, mass, or nodule noted. IMPRESSION: 1. Acute bronchitis. 2. Advanced chronic obstructive pulmonary disease. 3. Atherosclerotic heart disease. 4. Mild bronchospasm. PLAN The patient appears quite comfortable this morning. She is not short of breath at rest. She does state to feeling much better overall. I did discuss the case with the night nurse at length. The night nurse stated the patient had a good night. On physical exam, the patient does not have significant bronchospasm. In addition, there is no significant alveolar-arterial gradient. I will continue with the current nebulizer treatments and decrease the intravenous steroids this morning. The patient also remains on antibiotic therapy. There are no temperatures noted. There is no leukocytosis. Clinical status of the patient is significantly improved - compared to the initial presentation. However, given the above, the future status/prognosis for this elderly patient does remain guarded. I will discuss the above with the attending physician. Riki Charlton MD DANA
--- NOTE | 2018-06-01 11:24 | CP.PCM.APN ---
Subjective - Date & Time of Evaluation Date of Evaluation: 06/01/18 Time of Evaluation: 11:20 - Subjective Subjective: pt seen and examined at bedside, pt reports feeling much better since admission Review of Systems - Review of Systems All systems: reviewed and no additional remarkable complaints except Objective - Vital Signs/Intake and Output Vital Signs (last 24 hours): Temp Pulse Resp BP Pulse Ox 97.8 F 72 20 116/54 L 97 06/01/18 06:00 06/01/18 06:00 06/01/18 06:00 06/01/18 06:00 06/01/18 06:00 Intake and Output: 06/01/18 06/01/18 06:59 18:59 Intake Total 120 Output Total 0 Balance 120 - Medications Medications: Current Medications Acetaminophen (Tylenol 325mg Tab) 650 mg PO Q6 PRN PRN Reason: TEMP>=99.5F Acetaminophen (Tylenol 650 Mg Supp) 650 mg RC Q6H PRN PRN Reason: TEMP>=99.5F Aspirin (Ecotrin) 81 mg PO DAILY [facility] Last Admin: 06/01/18 09:21 Dose: 81 mg Atorvastatin Calcium (Lipitor) 20 mg PO DAILY [facility] Last Admin: 06/01/18 09:21 Dose: 20 mg Benzonatate (Tessalon Perles) 200 mg PO TID [facility] Last Admin: 06/01/18 09:22 Dose: 200 mg Budesonide (Pulmicort Respules) 0.5 mg IH [id number] [facility] Last Admin: 06/01/18 08:33 Dose: 0.5 mg Clopidogrel Bisulfate (Plavix) 75 mg PO DAILY [facility] Last Admin: 06/01/18 09:20 Dose: 75 mg Diltiazem HCl (Cardizem) 30 mg PO 0000,0600,1200,1800 [facility] Last Admin: 06/01/18 05:49 Dose: Not Given Docusate Sodium (Colace) 100 mg PO TID [facility] Last Admin: 06/01/18 09:21 Dose: 100 mg Doxycycline Hyclate (Doryx) 100 mg PO Q12 [facility] Enoxaparin Sodium (Lovenox) 40 mg SC DAILY [facility]; Protocol Last Admin: 06/01/18 09:20 Dose: 40 mg Ceftriaxone Sodium (Rocephin 2 Gm Ivpb) 2 gm in 100 mls @ 100 mls/hr IVPB DAILY [facility]; Protocol Last Admin: 06/01/18 09:22 Dose: 100 mls/hr Lactated Ringer's (Lactated Ringer's) 1,000 mls @ 60 mls/hr IV .[id number] [facility] Last Admin: 06/01/18 05:45 Dose: Not Given Levalbuterol HCl (Xopenex) 1.25 mg IH [id number] [facility] Last Admin: 06/01/18 08:32 Dose: 1.25 mg Levothyroxine Sodium (Synthroid) 100 mcg PO DAILY [facility] Last Admin: 06/01/18 09:24 Dose: 100 mcg Methylprednisolone (Solu-Medrol) 40 mg IVP Q8H [facility] Last Admin: 06/01/18 08:49 Dose: 40 mg Ondansetron HCl (Zofran Inj) 4 mg IVP Q4H PRN PRN Reason: Nausea/Vomiting Pantoprazole Sodium (Protonix Ec Tab) 40 mg PO DAILY [facility] Last Admin: 06/01/18 09:21 Dose: 40 mg Polyethylene Glycol (Miralax) 17 gm PO BID [facility] Last Admin: 06/01/18 09:20 Dose: 17 gm Zolpidem Tartrate (Ambien) 5 mg PO HS PRN; Protocol PRN Reason: Insomnia Last Admin: 05/31/18 22:59 Dose: 5 mg - Labs Labs: 06/01/18 08:35 06/01/18 08:35 PT 12.6 SECONDS (9.4-12.5) H 05/30/18 19:23 INR 1.14 05/30/18 19:23 APTT 30.2 Seconds (26.9-38.3) 05/30/18 19:23 - Constitutional Appears: No Acute Distress, Chronically Ill - Respiratory Exam Respiratory Exam: Decreased Breath Sounds, NORMAL BREATHING PATTERN - Cardiovascular Exam Cardiovascular Exam: +S1, +S2 - GI/Abdominal Exam GI & Abdominal Exam: Soft, Normal Bowel Sounds - Neurological Exam Neurological Exam: Alert, Awake, Oriented x3 Assessment and Plan - Assessment and Plan (Free Text) Plan: ITS Impressions Chest X-Ray 05/30/18 14:49 IMPRESSION: Hyperinflation/emphysema. Biapical pleural thickening. Moderate to large hiatal hernia. Extremity Ultrasound 05/30/18 18:58 IMPRESSION: No sonographic evidence for deep venous thrombosis in the visualized segments of both lower extremities. Chest CT 05/31/18 00:18 Impression: COPD/emphysema. Biapical fibrosis/scarring. Large hiatal hernia. Limited visualization of the noncontrast upper abdomen: Again seen is a dense peripherally calcified hypodense mass previously demonstrated separate from the gallbladder. Limited visualization of the gallbladder with gallstones evident. Additional findings as above. 88 year old female with past medical history of COPD, hypothyroidism, hyperlipidemia, hypertension, and oral cancer in remission for the past 3 years presented to the emergency department for shortness of breath and dry cough for 3 days, she was taking Amoxicillin as outpatient with no relief of symptoms. pt now admitted for further mgmt of copd exacerbation with pul consultation on board with IV steroids and IV antibiotics. All Active Problems COPD exacerbation (Acute) will continue to follow clinically BPCI/TIC - BPCIA/TIC Educated pt/family on BPCIA/CIR/Med to Bed Programs: Yes Flyers given, including [facility] Beneficiary letter: Yes Pt/family verbalized understanding & agreed to program: Yes
--- NOTE | 2018-06-01 14:36 | PN ---
DATE: 06/01/2018 SUBJECTIVE: The patient was seen in room 268, bed 1. Overnight nurse's notes were reviewed. The patient's respiratory status stays stable without any notes of respiratory compromise. The patient states that the breathing is better and wheezing is resolved. OBJECTIVE: VITAL SIGNS: T-max is afebrile. Telemetry shows normal sinus rhythm, heart rate in 70s and 80s per minute, blood pressure of 128/78, 130/84, respiration 18-20, O2 sat up to 97% on 2-3 liters nasal cannula. HEENT: The patient's head examination normocephalic, atraumatic. HEENT examination shows pink conjunctivae. Anicteric sclerae. No oropharyngeal lesion. NECK: No neck rigidity. CHEST: Kyphosis. Still decreased air entry noted. Wheezing has almost completely resolved. Positive rhonchi noted in the upper anterior lung bullard. CARDIOVASCULAR: S1 and S2, regular rhythm. Questionable soft systolic murmur, left sternal border, right second intercostal space, left second intercostal space. ABDOMEN: Soft. Positive bowel sounds. No palpable hepatosplenomegaly. GENITALIA: Female. RECTAL: Deferred. EXTREMITIES: Shows trace swelling of the lower extremity. No pitting edema, no calves tenderness, no Homans' sign. NEUROLOGIC: The patient is alert, awake, responsive. Is able to move upper and lower extremity without assistance. Gait examination is not tested. Vascular examination, palpable pulses. DIAGNOSTIC DATA: On June 01, CBC is within normal limits. CMP, LFTs are within normal limits. Electrolytes are within normal limit. Glucose is elevated at 132.. The patient seen by recommends reviewed. IMPRESSION AND PLAN: 1. Acute exacerbation of chronic obstructive pulmonary disease with acute hypoxic respiratory failure . 2. History of advanced chronic obstructive pulmonary disease and emphysema with biapical fibrosis. 3. Large hiatal hernia. 4. Hypertension. 5 History of deep venous thrombosis. 6. Steroid-induced hyperglycemia. 7. Hypoxemia. 8 Acute exacerbation of chronic obstructive pulmonary disease with bronchospasm. 9. History of oral carcinoma, status post surgery. PLAN: At this time, the patient's IV steroids were decreased by pulmonary. IV steroids, Solu Medrol decreased to 40 mg IV every 8 hours by pulmonary. The patient will be continued on all the medications as per the MAR of today, which was reviewed. The patient will be has been ordered supplemental oxygen. I have advised the patient and the daughter yesterday to contact Safety Specialist regarding discharge planning options and possible evaluation from home O2. The patient been ordered out of bed to chair, physical therapy, occupational therapy, ambulation therapy, gait training and evaluation for TCU. The patient's further management will be dependent upon the patient's clinical condition, hemodynamic status and as per the patient response to therapeutic intervention and as per the patient's diagnostic test results and as per recommendation by all the physician involved in the care of the patient. Dictated and electronically signed, not read. David Johansen MD
[2018-06-01] MEDS ORDERED: Magnesium Hydroxide Susp 30 ml UD PO ONE (20:03)
[2018-06-02] MEDS: Levalbuterol 1.25 MG/3 ML Inhal Soln UD IH SCH ×3 (01:38→13:14)
--- NOTE | 2018-06-02 04:30 | CP.PCM.PN ---
<Kathy Mcmillan - Last Filed: 06/02/18 04:28> Subjective - Date & Time of Evaluation Date of Evaluation: 06/02/18 Time of Evaluation: 04:28 - Subjective Subjective: PGY1 House Doctor: Patient seen and evaluated at bedside. Patient wishes to uphold her advanced directive (viewable under scanned forms). Patient does not want to be intubated and does not want to have compressions and/or resuscitated. Patient is requesting that her chart reflects this. CODE STATUS updated to DNR/DNI, per Patient's request. Objective - Vital Signs/Intake and Output Vital Signs (last 24 hours): Temp Pulse Resp BP Pulse Ox 98.6 F 68 18 150/71 95 06/02/18 00:01 06/02/18 02:00 06/02/18 00:01 06/02/18 00:01 06/02/18 00:01 Intake and Output: 06/01/18 06/02/18 18:59 06:59 Intake Total 860 940 Output Total 1050 Balance 860 -110 - Medications Medications: Current Medications Acetaminophen (Tylenol 325mg Tab) 650 mg PO Q6 PRN PRN Reason: TEMP>=99.5F Acetaminophen (Tylenol 650 Mg Supp) 650 mg RC Q6H PRN PRN Reason: TEMP>=99.5F Aspirin (Ecotrin) 81 mg PO DAILY [facility] Last Admin: 06/01/18 09:21 Dose: 81 mg Atorvastatin Calcium (Lipitor) 20 mg PO DAILY [facility] Last Admin: 06/01/18 09:21 Dose: 20 mg Benzonatate (Tessalon Perles) 200 mg PO TID [facility] Last Admin: 06/01/18 18:25 Dose: 200 mg Budesonide (Pulmicort Respules) 0.5 mg IH [id number] [facility] Last Admin: 06/01/18 19:57 Dose: 0.5 mg Clopidogrel Bisulfate (Plavix) 75 mg PO DAILY [facility] Last Admin: 06/01/18 09:20 Dose: 75 mg Diltiazem HCl (Cardizem) 30 mg PO 0000,0600,1200,1800 [facility] Last Admin: 06/01/18 23:06 Dose: 30 mg Docusate Sodium (Colace) 100 mg PO TID [facility] Last Admin: 06/01/18 18:26 Dose: 100 mg Doxycycline Hyclate (Doryx) 100 mg PO Q12 [facility] Last Admin: 06/01/18 23:05 Dose: 100 mg Enoxaparin Sodium (Lovenox) 40 mg SC DAILY [facility]; Protocol Last Admin: 06/01/18 09:20 Dose: 40 mg Ceftriaxone Sodium (Rocephin 2 Gm Ivpb) 2 gm in 100 mls @ 100 mls/hr IVPB DAILY [facility]; Protocol Last Admin: 06/01/18 09:22 Dose: 100 mls/hr Lactated Ringer's (Lactated Ringer's) 1,000 mls @ 60 mls/hr IV .[id number] [facility] Last Admin: 06/01/18 20:41 Dose: 60 mls/hr Levalbuterol HCl (Xopenex) 1.25 mg IH [id number] [facility] Last Admin: 06/02/18 01:38 Dose: 1.25 mg Levothyroxine Sodium (Synthroid) 100 mcg PO DAILY [facility] Last Admin: 06/01/18 09:24 Dose: 100 mcg Methylprednisolone (Solu-Medrol) 40 mg IVP Q8H [facility] Last Admin: 06/01/18 23:05 Dose: 40 mg Ondansetron HCl (Zofran Inj) 4 mg IVP Q4H PRN PRN Reason: Nausea/Vomiting Pantoprazole Sodium (Protonix Ec Tab) 40 mg PO DAILY [facility] Last Admin: 06/01/18 09:21 Dose: 40 mg Polyethylene Glycol (Miralax) 17 gm PO BID [facility] Last Admin: 06/01/18 18:27 Dose: 17 gm Zolpidem Tartrate (Ambien) 5 mg PO HS PRN; Protocol PRN Reason: Insomnia Last Admin: 06/01/18 23:38 Dose: 5 mg - Labs Labs: 06/01/18 08:35 06/01/18 08:35 PT 12.6 SECONDS (9.4-12.5) H 05/30/18 19:23 INR 1.14 05/30/18 19:23 APTT 30.2 Seconds (26.9-38.3) 05/30/18 19:23 <Gamaliel Roque - Last Filed: 06/02/18 06:45> Objective - Vital Signs/Intake and Output Vital Signs (last 24 hours): Temp Pulse Resp BP Pulse Ox 97.6 F 70 19 119/61 97 06/02/18 05:57 06/02/18 05:57 06/02/18 05:57 06/02/18 05:57 06/02/18 05:57 Intake and Output: 06/01/18 06/02/18 18:59 06:59 Intake Total 860 1820 Output Total 1052 Balance 860 768 - Medications Medications: Current Medications Acetaminophen (Tylenol 325mg Tab) 650 mg PO Q6 PRN PRN Reason: TEMP>=99.5F Acetaminophen (Tylenol 650 Mg Supp) 650 mg RC Q6H PRN PRN Reason: TEMP>=99.5F Aspirin (Ecotrin) 81 mg PO DAILY [facility] Last Admin: 06/01/18 09:21 Dose: 81 mg Atorvastatin Calcium (Lipitor) 20 mg PO DAILY [facility] Last Admin: 06/01/18 09:21 Dose: 20 mg Benzonatate (Tessalon Perles) 200 mg PO TID [facility] Last Admin: 06/01/18 18:25 Dose: 200 mg Budesonide (Pulmicort Respules) 0.5 mg IH [id number] [facility] Last Admin: 06/01/18 19:57 Dose: 0.5 mg Clopidogrel Bisulfate (Plavix) 75 mg PO DAILY [facility] Last Admin: 06/01/18 09:20 Dose: 75 mg Diltiazem HCl (Cardizem) 30 mg PO 0000,0600,1200,1800 [facility] Last Admin: 06/02/18 05:30 Dose: 30 mg Docusate Sodium (Colace) 100 mg PO TID [facility] Last Admin: 06/01/18 18:26 Dose: 100 mg Doxycycline Hyclate (Doryx) 100 mg PO Q12 [facility] Last Admin: 06/01/18 23:05 Dose: 100 mg Enoxaparin Sodium (Lovenox) 40 mg SC DAILY [facility]; Protocol Last Admin: 06/01/18 09:20 Dose: 40 mg Ceftriaxone Sodium (Rocephin 2 Gm Ivpb) 2 gm in 100 mls @ 100 mls/hr IVPB DAILY [facility]; Protocol Last Admin: 06/01/18 09:22 Dose: 100 mls/hr Lactated Ringer's (Lactated Ringer's) 1,000 mls @ 60 mls/hr IV .[id number] [facility] Last Admin: 06/01/18 20:41 Dose: 60 mls/hr Levalbuterol HCl (Xopenex) 1.25 mg IH [id number] [facility] Last Admin: 06/02/18 01:38 Dose: 1.25 mg Levothyroxine Sodium (Synthroid) 100 mcg PO DAILY [facility] Last Admin: 06/01/18 09:24 Dose: 100 mcg Methylprednisolone (Solu-Medrol) 40 mg IVP Q8H [facility] Last Admin: 06/01/18 23:05 Dose: 40 mg Ondansetron HCl (Zofran Inj) 4 mg IVP Q4H PRN PRN Reason: Nausea/Vomiting Pantoprazole Sodium (Protonix Ec Tab) 40 mg PO DAILY [facility] Last Admin: 06/01/18 09:21 Dose: 40 mg Polyethylene Glycol (Miralax) 17 gm PO BID [facility] Last Admin: 06/01/18 18:27 Dose: 17 gm Zolpidem Tartrate (Ambien) 5 mg PO HS PRN; Protocol PRN Reason: Insomnia Last Admin: 06/01/18 23:38 Dose: 5 mg - Labs Labs: 06/01/18 08:35 06/01/18 08:35 PT 12.6 SECONDS (9.4-12.5) H 05/30/18 19:23 INR 1.14 05/30/18 19:23 APTT 30.2 Seconds (26.9-38.3) 05/30/18 19:23 Attending/Attestation - Attestation I have personally seen and examined this patient.: No I have fully participated in the care of the patient.: No I have reviewed all pertinent clinical information, including history, physical exam and plan: No
[2018-06-02 06:01] VITALS: O2SAT 97
[2018-06-02] MEDS: Budesonide 0.5 mg/2 ml Inhal Susp UD IH SCH (07:55)
[2018-06-02] MEDS ORDERED: MethylPREDNISolone 40 mg Vial IVP SCH (10:00)
[2018-06-02] MEDS ORDERED: Fluticasone Nasal 50 mcg/Spray NS SCH (10:00)
--- NOTE | 2018-06-02 10:22 | PN ---
DATE: 06/02/2018 PULMONARY NOTE SUBJECTIVE: The patient appears quite comfortable this morning. She is not short of breath at rest. PHYSICAL EXAMINATION: VITAL SIGNS: Temperature is 97.6, pulse 70, respirations 19, blood pressure 119/61. Oxygen saturation on nasal cannula is 97%. HEENT: Normocephalic, atraumatic. No JVD. CARDIOVASCULAR: Systolic ejection murmur at the lower left sternal border. No S3 gallop. LUNGS: Improved breath sounds at the bases. Very minimal/less rhonchi. No wheezing. GI: Abdomen is soft, nontender and nondistended. Bowel sounds are positive. EXTREMITIES: No clubbing, cyanosis or edema. Calves are nontender to palpation. SKIN: No acute rash. NEUROLOGIC: Exam limited at the present time. IMPRESSION: 1. Acute bronchitis. 2. Advanced chronic obstructive pulmonary disease. 3. Atherosclerotic heart disease. 4. Mild bronchospasm. PLAN: The patient appears very comfortable this morning. She is not short of breath at rest. She does state to feeling better overall. This morning, the patient also complains of a postnasal drip and "feeling in her throat." On physical exam, there is no significant bronchospasm noted. In addition, there is no significant alveolar-arterial gradient. I will continue the current nebulizer treatments and decrease the intravenous steroids this morning. I will also add nasal steroids this morning. Clinical status of the patient has certainly improved - compared to the initial presentation. However, given the above, the future status/prognosis for this patient does remain very guarded. I will discuss the above with the attending physician. Riki Charlton MD MTDD
--- NOTE | 2018-06-02 10:44 | CP.PCM.PN ---
Subjective - Date & Time of Evaluation Date of Evaluation: 06/02/18 Time of Evaluation: 10:00 - Subjective Subjective: Octavio Cool- Internal Medicine Resident- Progress Note on Behalf of Dr. Johansen Patient seen and examined at bedside. Resting comfortably in bed. Patient made DNR/DNI by night team as per her wishes. Patient states SOB has improved relative to baseline. Offers no new complaints at this time. Denies fever, chill s, chest pain, abdominal pain, nausea, vomiting, diarrhea, constipation, and urinary symptoms. 12-point review of systems negative except as indicated in the HPI Physical Examination: - Constitutional Appears: Non-toxic, No Acute Distress - Head Exam Head Exam: ATRAUMATIC, NORMAL INSPECTION, NORMOCEPHALIC - Eye Exam Eye Exam: EOMI - ENT Exam ENT Exam: Mucous Membranes Moist - Neck Exam Neck exam: Positive for: Full Rom, Normal Inspection - Respiratory Exam Respiratory Exam: wheezing bilaterally on expiration absent: Accessory Muscle Use, Chest Wall Tenderness - Cardiovascular Exam Cardiovascular Exam: REGULAR RHYTHM, RRR, +S1, +S2. absent: Bradycardia, Tachycardia, Irregular Rhythm, JVD, +S4 - GI/Abdominal Exam GI & Abdominal Exam: Normal Bowel Sounds, Soft. 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 COPD exacerbation, PNA - continue doxycycline and rocephin - continue xopenox - continue pulmicort and budesonide - steroid tapered solumedrol to 40mg IV q12 - atypicals ordered and pending Carotid artery stenosis -Continue with home aspirin, plavix and lipitor Hyperlipidemia -Continue with home lipitor Hypothyroidism -Continue with home synthyroid Insomnia - continue ambien Prophylaxis - DVT ppx- subq lovenox - GI ppx- pantoprazole Dipso: TCU when approved Patient case discussed with and plan approved by attending physician, Dr. Johansen. Objective - Vital Signs/Intake and Output Vital Signs (last 24 hours): Temp Pulse Resp BP Pulse Ox 97.6 F 70 19 119/61 97 06/02/18 05:57 06/02/18 05:57 06/02/18 05:57 06/02/18 05:57 06/02/18 05:57 Intake and Output: 06/02/18 06/02/18 06:59 18:59 Intake Total 1820 Output Total 1052 Balance 768 - Medications Medications: Current Medications Acetaminophen (Tylenol 325mg Tab) 650 mg PO Q6 PRN PRN Reason: TEMP>=99.5F Acetaminophen (Tylenol 650 Mg Supp) 650 mg RC Q6H PRN PRN Reason: TEMP>=99.5F Aspirin (Ecotrin) 81 mg PO DAILY [facility] Last Admin: 06/01/18 09:21 Dose: 81 mg Atorvastatin Calcium (Lipitor) 20 mg PO DAILY [facility] Last Admin: 06/01/18 09:21 Dose: 20 mg Benzonatate (Tessalon Perles) 200 mg PO TID [facility] Last Admin: 06/01/18 18:25 Dose: 200 mg Budesonide (Pulmicort Respules) 0.5 mg IH [id number] [facility] Last Admin: 06/02/18 07:55 Dose: 0.5 mg Clopidogrel Bisulfate (Plavix) 75 mg PO DAILY [facility] Last Admin: 06/01/18 09:20 Dose: 75 mg Diltiazem HCl (Cardizem) 30 mg PO 0000,0600,1200,1800 [facility] Last Admin: 06/02/18 05:30 Dose: 30 mg Docusate Sodium (Colace) 100 mg PO TID [facility] Last Admin: 06/01/18 18:26 Dose: 100 mg Doxycycline Hyclate (Doryx) 100 mg PO Q12 [facility] Last Admin: 06/01/18 23:05 Dose: 100 mg Enoxaparin Sodium (Lovenox) 40 mg SC DAILY [facility]; Protocol Last Admin: 06/01/18 09:20 Dose: 40 mg Fluticasone Propionate (Flonase) 1 actuation NS DAILY [facility] Ceftriaxone Sodium (Rocephin 2 Gm Ivpb) 2 gm in 100 mls @ 100 mls/hr IVPB DAILY [facility]; Protocol Last Admin: 06/01/18 09:22 Dose: 100 mls/hr Lactated Ringer's (Lactated Ringer's) 1,000 mls @ 60 mls/hr IV .[id number] [facility] Last Admin: 06/01/18 20:41 Dose: 60 mls/hr Levalbuterol HCl (Xopenex) 1.25 mg IH [id number] [facility] Last Admin: 06/02/18 07:55 Dose: 1.25 mg Levothyroxine Sodium (Synthroid) 100 mcg PO DAILY [facility] Last Admin: 06/01/18 09:24 Dose: 100 mcg Methylprednisolone (Solu-Medrol) 40 mg IVP Q12 [facility] Ondansetron HCl (Zofran Inj) 4 mg IVP Q4H PRN PRN Reason: Nausea/Vomiting Pantoprazole Sodium (Protonix Ec Tab) 40 mg PO DAILY [facility] Last Admin: 06/01/18 09:21 Dose: 40 mg Polyethylene Glycol (Miralax) 17 gm PO BID [facility] Last Admin: 06/01/18 18:27 Dose: 17 gm Zolpidem Tartrate (Ambien) 5 mg PO HS PRN; Protocol PRN Reason: Insomnia Last Admin: 06/01/18 23:38 Dose: 5 mg - Labs Labs: 06/01/18 08:35 06/01/18 08:35 PT 12.6 SECONDS (9.4-12.5) H 05/30/18 19:23 INR 1.14 05/30/18 19:23 APTT 30.2 Seconds (26.9-38.3) 05/30/18 19:23
--- NOTE | 2018-06-02 10:49 | CARD ---
APPROVED REPORT Date of service: 06/01/2018 EXAM: Two-dimensional and M-mode echocardiogram with Doppler and color Doppler. INDICATION COPD EXACERBATION ?? PH 2D DIMENSIONS Left Atrium (2D)3.7 (1.6-4.0cm)IVSd0.9 (0.7-1.1cm) LVDd4.0 (3.9-5.9cm)PWd0.9 (0.7-1.1cm) LVDs2.7 (2.5-4.0cm)FS (%) 31.9 % LVEF (%)60.5 (>50%) M-Mode DIMENSIONS Aortic Root3.20 (2.2-3.7cm)Aortic Cusp Exc.1.90 (1.5-2.0cm) Mitral Valve MV E Gdoiqfqd936.0cm/sMV E Peak Gr.12mmHgMV A Fqflockp114.0cm/s MV E Mean Gr.5mmHgMV UPS534waL/A ratio0.7 MVA (PHT)1.67cm2 TDI Lateral E' Peak V8.29cm/sMedial E' Peak V5.07cm/sE/Lateral E'14.2 E/Medial E'23.3 Pulmonary Valve PV Peak Wos[place]hos846.0cm/sPV Peak Grad.4mmHg Tricuspid Valve TR Peak [id number]/sRAP [id number] Peak Gr.34mmHg [id number] LEFT VENTRICLE The left ventricle is normal size. There is normal left ventricular wall thickness. The left ventricular function is normal. The left ventricular ejection fraction is within the normal range. There is normal LV segmental wall motion. Transmitral Doppler flow pattern is Grade I-abnormal relaxation pattern. RIGHT VENTRICLE The right ventricle is normal size. There is normal right ventricular wall thickness. The right ventricular systolic function is normal. ATRIA The left atrium size is normal. The right atrium size is normal. AORTIC VALVE The aortic valve is mildly sclerotic. No aortic regurgitation is present. There is no aortic valvular stenosis. MITRAL VALVE The mitral valve is calcified and displays decreased opening. Mitral regurgitation is mild. There is mild to moderate mitral valve stenosis. TRICUSPID VALVE There is mild to moderate pulmonary hypertension. PULMONIC VALVE The pulmonary valve is normal in structure. There is no pulmonic valvular regurgitation. GREAT VESSELS The aortic root is normal in size. The IVC is normal in size and collapses >50% with inspiration. PERICARDIAL EFFUSION There is no pericardial effusion. <Conclusion> There is normal left ventricular wall thickness. The left ventricular function is normal. The left ventricular ejection fraction is within the normal range. There is normal LV segmental wall motion. Transmitral Doppler flow pattern is Grade I-abnormal relaxation pattern. The mitral valve is calcified and displays decreased opening. There is mild to moderate mitral valve stenosis. Mitral regurgitation is mild. There is mild to moderate pulmonary hypertension.
[2018-06-02] MEDS: Levothyroxine 100 MCG TAB PO SCH (10:53)
[2018-06-02] MEDS: Pantoprazole 40 mg EC Tab PO SCH (10:54)
[2018-06-02] MEDS: Enoxaparin 40 mg Syringe SC SCH (10:54)
[2018-06-02] MEDS: cefTRIAXone 2 GM IN NS 2 GM/100 ML BAG IVPB SCH (10:55)
[2018-06-02] MEDS: POLYETHYLENE GLYCOL 3350 17 GM/Dose PACKET PO SCH (10:55)
--- NOTE | 2018-06-02 11:40 | DS ---
FINAL PROGRESS NOTE AND DISCHARGE SUMMARY DATE: 06/02/2018 LOCATION: The patient is seen in room 268, bed 1. SUBJECTIVE: Overnight nurses' notes were reviewed. The patient has requested to be a DNR/DNI yesterday and the patient's code status was updated to DNR/DNI as per the patient's wishes. Overnight nurses' notes were reviewed. No adverse events were documented, notified or called for. PHYSICAL EXAMINATION: VITAL SIGNS: The patient is afebrile. Telemetry shows normal sinus rhythm, heart rate 68-75, respirations 18, O2 sat is 95% on 2-3 liters of nasal cannula, blood pressure 119/61. HEAD: Normocephalic, atraumatic. HEENT: Pinkish conjunctivae. Anicteric sclerae. No oropharyngeal lesion. NECK: No neck rigidity. CHEST: Kyphosis. Improved air entry noted bilaterally. Occasional rhonchi upper anterior lung field noted. CARDIOVASCULAR: S1, S2, regular rhythm. Questionable soft systolic murmur left sternal border, right second intercostal space, left second intercostal space. ABDOMEN: Soft. Positive bowel sounds. No palpable hepatosplenomegaly. GENITALIA: Female. RECTAL: Deferred. EXTREMITIES: Trace swelling of the lower extremity. No calf tenderness. No Homans' signs. Some varicose veins noted. MUSCULOSKELETAL: Examination is as per the body mass index. NEUROLOGIC: The patient is alert, awake, responsive, is able to move upper and lower extremities without assistance. DIAGNOSTIC DATA: From 06/02/2018 pending. Echocardiogram, preliminary report, left ventricular ejection fraction seems to be around 60-65%. Right ventricular systolic pressure is 44 mmHg FINAL IMPRESSION AND PLAN & DISCHARGE DIAGNOSES: 1. Slow resolving acute hypoxic respiratory failure secondary to acute exacerbation of chronic obstructive pulmonary disease with bronchospasm. 2. Hypoxemia. 3. 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 4. Hypertension. 5. History of nicotine dependence. 6. Possible pulmonary hypertension with right ventricular systolic pressure of 44 mmHg 7. Acute exacerbation of chronic obstructive pulmonary disease. 8. Hiatal hernia. PLAN: At this time, plan at this time, the patient is to be continued on bronchodilators. The patient is to be continued on broad-spectrum IV antibiotics. The patient is to be continued on IV steroids. The patient is to be continued on all the therapeutic intervention as per the MAR of today, which was reviewed and updated. The patient will be continued on GI and DVT prophylaxis, both pharmacological and non-pharmacological GI and DVT prophylaxis. The patient will be continued on all the medications as per the MAR of today. The patient is being followed up by Pulmonary for further recommendation. We will consider discontinuing telemetry today if the patient stays stable. The patient has been ordered physical therapy, occupational therapy, ambulation therapy, out of bed to chair and TCU evaluation has been ordered. The patient was accepted to TCU. The patient will be considered for transfer and discharge to TCU. The patient has been updated about her condition, diagnosis, test results, recommendations at length in layman's language. All questions concerned answered. I have also advised the patient to contact social secretary with discharge planning issues, which I have also discussed with the patient's daughter. PATIENT ACCEPTED TO TCU WILL DISCHARGE TO TCU UNDER SERVICE. David Johansen MD MTDD
[2018-06-02 12:22] VITALS: RESP 18; TEMP 97.7
[2018-06-02 14:38] VITALS: BP 150/80; PULSE 74
== END 2018-06-02 16:15 | DRG 190 ==
LOC: ED 14:36 → ERH 17:05 → 2RNO 19:01
PROVIDERS: ADMIT Internal Medicine; ATTEND Internal Medicine
DX: J43.9 Emphysema, unspecified (principal); J96.01 Acute respiratory failure with hypoxia; I10 Essential (primary) hypertension; G30.9 Alzheimer's disease, unspecified; F02.80 Dementia in other diseases classified elsewhere, unspecified severity, without behavioral disturbance, psychotic disturbance, mood disturbance, and anxiety; K44.9 Diaphragmatic hernia without obstruction or gangrene; E03.9 Hypothyroidism, unspecified; D72.819 Decreased white blood cell count, unspecified; K80.20 Calculus of gallbladder without cholecystitis without obstruction; I25.10 Atherosclerotic heart disease of native coronary artery without angina pectoris; E78.5 Hyperlipidemia, unspecified; I65.29 Occlusion and stenosis of unspecified carotid artery; I44.0 Atrioventricular block, first degree; G47.00 Insomnia, unspecified; Z66 Do not resuscitate; M47.812 Spondylosis without myelopathy or radiculopathy, cervical region; R73.9 Hyperglycemia, unspecified; T38.0X5A Adverse effect of glucocorticoids and synthetic analogues, initial encounter; Z96.651 Presence of right artificial knee joint; Z85.819 Personal history of malignant neoplasm of unspecified site of lip, oral cavity, and pharynx; Z86.73 Personal history of transient ischemic attack (TIA), and cerebral infarction without residual deficits; Z86.718 Personal history of other venous thrombosis and embolism; Z92.3 Personal history of irradiation; Z87.891 Personal history of nicotine dependence; Z79.82 Long term (current) use of aspirin; Z79.02 Long term (current) use of antithrombotics/antiplatelets

== ENCOUNTER 2018-06-02 16:18 | Inpatient (IN) | payer OTHER ==
[2018-06-02] MEDS: POLYETHYLENE GLYCOL 3350 17 GM/Dose PACKET PO SCH (17:55)
[2018-06-02] MEDS: MethylPREDNISolone 40 mg Vial IVP SCH (18:23)
[2018-06-02] MEDS: Acetylcysteine 20% Inhal Soln (4ml) IH SCH (19:20)
[2018-06-02] MEDS: Budesonide 0.5 mg/2 ml Inhal Susp UD IH SCH (19:20)
[2018-06-02] MEDS: Arformoterol 15 mcg/2 ml Inh Sol IH SCH (19:20)
[2018-06-02] MEDS: Levalbuterol 1.25 MG/3 ML Inhal Soln UD IH SCH (19:21)
[2018-06-02] MEDS ORDERED: MethylPREDNISolone 40 mg Vial IVP SCH (22:00)
[2018-06-02 22:53] VITALS: BMI 29.0
[2018-06-02] MEDS ORDERED: Pneumococcal 23-Valent Vaccine IM ONE (22:53)
[2018-06-02] MEDS ORDERED: Influenza Vaccine 60 mcg/0.5 mL SYR (4YR UP) IM ONE (22:53)
[2018-06-03] MEDS: Levalbuterol 1.25 MG/3 ML Inhal Soln UD IH SCH ×4 (01:12→20:45)
[2018-06-03] MEDS ORDERED: MethylPREDNISolone 40 mg Vial IVP SCH (06:00)
[2018-06-03] MEDS: Pantoprazole 40 mg EC Tab PO SCH (06:31)
[2018-06-03] MEDS: Enoxaparin 40 mg Syringe SC SCH (06:31)
[2018-06-03] MEDS: Levothyroxine 100 MCG TAB PO SCH (06:31)
[2018-06-03] MEDS: MethylPREDNISolone 40 mg Vial IVP SCH ×2 (06:32→17:58)
[2018-06-03] MEDS: cefTRIAXone 2 GM IN NS 2 GM/100 ML BAG IVPB SCH (06:33)
[2018-06-03] MEDS: Acetylcysteine 20% Inhal Soln (4ml) IH SCH ×3 (07:31→20:45)
[2018-06-03] MEDS: Arformoterol 15 mcg/2 ml Inh Sol IH SCH ×2 (07:31→20:45)
[2018-06-03] MEDS: Budesonide 0.5 mg/2 ml Inhal Susp UD IH SCH ×2 (07:31→20:45)
[2018-06-03] MEDS: POLYETHYLENE GLYCOL 3350 17 GM/Dose PACKET PO SCH ×2 (10:23→17:58)
[2018-06-03] MEDS: Fluticasone Nasal 50 mcg/Spray NS SCH (10:28)
--- NOTE | 2018-06-03 11:33 | CP.PCM.HP ---
<TravonOctavio - Last Filed: 06/03/18 12:28> History of Present Illness - History of Present Illness History of Present Illness: Octavio Cool- Internal Medicine Resident- H&P on Behalf of Dr. Johansen Patient is a 88 year old female with past medical history of COPD, hypot hyroidism, hyperlipidemia, hypertension, and oral cancer who was admitted for evaluation and treatment of shortness of breath and dry cough. Patient was diagnosed and treated for COPD exacerbation, pneumonia, along with her chronic medical conditions in the inpatient setting. Patient was then transferred to TCU for further rehabilitation. Patient seen and examined at bedside. Resting comfortably in bed. Patient states SOB has improved relative to baseline. Admits to productive cough at night. Denies fever, chills, chest pain, abdominal pain, nausea, vomiting, diarrhea, constipation, and urinary symptoms. 12-point review of systems negative except as indicated in the HPI PMHx: COPD, hypothyroidism, hyperlipidemia, hypertension, oral cancer PSHx: oral cancer surgery, right knee replacement, bilateral feet reconstruction FMHx: denies Allergies: levaquin, albuterol SHx: denies current tobacco abuse, smoked 1 PPD for 30 years, 4 glasses of wine a few times a week which has now stopped, and denies recreational drug use Physical Examination: - Constitutional Appears: Non-toxic, No Acute Distress - Head Exam Head Exam: ATRAUMATIC, NORMAL INSPECTION, NORMOCEPHALIC - Eye Exam Eye Exam: EOMI - ENT Exam ENT Exam: Mucous Membranes Moist - Neck Exam Neck exam: Positive for: Full Rom, Normal Inspection - Respiratory Exam Respiratory Exam: absent: Accessory Muscle Use, Chest Wall Tenderness - Cardiovascular Exam Cardiovascular Exam: REGULAR RHYTHM, RRR, +S1, +S2. absent: Bradycardia, Tachycardia, Irregular Rhythm, JVD, +S4 - GI/Abdominal Exam GI & Abdominal Exam: Normal Bowel Sounds, Soft. 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 COPD exacerbation, PNA - continue doxycycline and rocephin - continue xopenox - continue pulmicort and budesonide - continue nacetylcysteine - steroid tapered solumedrol to 40mg IV q12 - atypicals ordered and pending - pulmonology consulted (Dr. Charlton)- appreciate recommendations Elevated RVSP - component from pulmonary hypertension - start patient on lasix 20mg IV daily with holding parameters Carotid artery stenosis -Continue with home aspirin, plavix and lipitor Hyperlipidemia -Continue with home lipitor Hypothyroidism -Continue with home synthyroid Insomnia - continue ambien Deconditioned State - continue rehabilitation in TCU Prophylaxis - DVT ppx- subq lovenox - GI ppx- pantoprazole Patient case discussed with and plan approved by attending physician, Dr. Johansen. Present on Admission - Present on Admission Any Indicators Present on Admission: No Past Patient History - Infectious Disease Hx of Infectious Diseases: None - Past Social History Smoking Status: Former Smoker - CARDIAC Hx Hypercholesterolemia: Yes Hx Hypertension: Yes - PULMONARY Hx Chronic Obstructive Pulmonary Disease (COPD): Yes - NEUROLOGICAL Hx Neurological Disorder: Yes Hx Alzheimer's Disease: Yes - HEENT Hx HEENT Problems: No - RENAL Hx Chronic Kidney Disease: No - ENDOCRINE/METABOLIC Hx Hypothyroidism: Yes - HEMATOLOGICAL/ONCOLOGICAL Hx Cancer: Yes - INTEGUMENTARY Hx Dermatological Problems: No - MUSCULOSKELETAL/RHEUMATOLOGICAL Hx Falls: Yes - GASTROINTESTINAL Hx Gastrointestinal Disorders: (was const since 05/30/18 had laxatives bm today) - GENITOURINARY/GYNECOLOGICAL Hx Genitourinary Disorders: No Hx Reproductive Disorders: No - PSYCHIATRIC Hx Psychophysiologic Disorder: No Hx Substance Use: No - SURGICAL HISTORY Hx Orthopedic Surgery: Yes - ANESTHESIA Hx Anesthesia: No Meds Allergies/Adverse Reactions: Allergies Allergy/AdvReac Type Severity Reaction Status Date / Time levofloxacin AdvReac Intermediate SWELLING Verified 05/30/18 15:09 albuterol AdvReac COUGH Verified 05/30/18 15:10 Results - Vital Signs Recent Vital Signs: Last Vital Signs Temp 97.7 F 06/02/18 22:34 Pulse 82 06/03/18 06:28 Resp 20 06/02/18 22:34 BP 150/80 06/03/18 06:28 Pulse Ox <David Johansen U - Last Filed: 06/08/18 20:02> Results - Vital Signs Recent Vital Signs: Last Vital Signs Temp 97.7 F 06/08/18 10:00 Pulse 84 06/08/18 10:14 Resp 16 06/08/18 10:00 BP 125/73 06/08/18 17:54 Pulse Ox 97 06/08/18 10:00 - Labs Result Diagrams: 06/05/18 07:10 06/05/18 07:10 Attending/Attestation - Attestation I have personally seen and examined this patient.: Yes I have fully participated in the care of the patient.: Yes I have reviewed all pertinent clinical information: Yes Notes (Text): Please see/read my dictated notes.
--- NOTE | 2018-06-03 11:35 | PN ---
DATE: 06/03/2018 SUBJECTIVE: The patient appears comfortable this morning. She is not short of breath at rest. PHYSICAL EXAMINATION: VITAL SIGNS: Temperature is 97.7, pulse 82, respirations 18, blood pressure 150/80. Oxygen saturation on nasal cannula is 97%. HEENT: Normocephalic, atraumatic. No JVD. CARDIOVASCULAR: Systolic ejection murmur at the lower left sternal border. No S3 gallop. LUNGS: Minimal/less rhonchi. No wheezing. EXTREMITIES: No clubbing, cyanosis, or edema. Calves are nontender to palpation. GASTROINTESTINAL: Abdomen is soft, nontender, nondistended. Bowel sounds are positive. SKIN: No acute rash. NEUROLOGIC: Exam limited at the present time. IMPRESSION: 1. Acute bronchitis. 2. Advanced chronic obstructive pulmonary disease. 3. Atherosclerotic heart disease. 4. Mild bronchospasm. PLAN: The patient appears comfortable this morning. She is not short of breath at rest. She does state to feeling much better overall. She does state to much less postnasal drip. On physical exam, there is certainly less bronchospasm noted. In addition, the alveolar-arterial gradient is also less. I will continue with the current nebulizer treatments,intravenous steroids (decreased yesterday), and nasal steroids for now. The patient also remains on antibiotic therapy. There are no temperatures noted. There is no leukocytosis. Clinical status of the patient is significantly improved - compared to her initial presentation. The patient is now in the transitional unit - where she will participate with physical therapy. I will discuss the above with the attending physician. Riki Charlton MD MTDBri
--- NOTE | 2018-06-03 19:41 | HP ---
DATE OF EXAM: 06/03/2018 HISTORY OF PRESENT ILLNESS: The patient is admitted to Transitional Care Unit on 06/19/2018. The patient was hospitalized to acute care floor from 05/30/2018 till 06/02/2018. The patient is now accepted and transferred to TCU for further management and treatment. The patient is seen and examined in Room 322, Bed 2. Overnight nurse's notes were reviewed. No adverse events were documented or noted. The patient's code status is DNR/DNI as per the patient's living will directive. ALLERGIES: THE PATIENT'S ALLERGIES ARE PER THE [employer] INFORMATION. MEDICATIONS: The patient's home medications and current medications are reviewed which are in the [facility]. The patient's past medical history, surgical history, social history, occupational history, family history please refer to the history and physical examination done on the admission of 05/30/2018. PHYSICAL EXAMINATION VITAL SIGNS: The patient's present vital signs; T-max 97.7, heart rate 74 to 82, blood pressure 150/80. HEENT: Head; normocephalic, atraumatic. HEENT; shows pink conjunctivae. Anicteric sclerae. No oropharyngeal lesion. NECK: No neck rigidity. CHEST: Kyphosis. CARDIOPULMONARY: S1, S2, regular rhythm. Positive systolic murmur left sternal border, right second intercostal space, left second intercostal space. LUNGS: Shows improved air entry and completely resolved wheezing. ABDOMEN: Soft. Positive bowel sound. No palpable hepatosplenomegaly, splenomegaly. GENITALIA: Female. RECTAL: Deferred. EXTREMITIES: Shows trace swelling of the lower extremity. MUSCULOSKELETAL: As per the body mass index. NEUROLOGIC: The patient is alert, awake, responsive, is able to move upper and lower extremity without assistance. Gait examination is not tested. VASCULAR: Palpable pulses. LABORATORY DATA: Diagnostics, none from today. Echocardiogram was reviewed which shows moderate mitral stenosis, moderate pulmonary hypertension, right ventricular systolic pressure 44 mmHg, hypertensive cardiovascular disease, ejection fraction 60%. IMPRESSION: 1. Acute hypoxic respiratory failure secondary to acute exacerbation of chronic obstructive pulmonary disease with bronchospasm and hypoxemia (resolved versus resolving). 2. Hypertension. 3. Moderate mitral stenosis. 4. Moderate pulmonary hypertension with right ventricular systolic pressure of 44 mmHg. 5. Hypertensive cardiovascular disease. 6. Left ventricular ejection fraction of 60%. 7. Steroid-induced hyperglycemia. 8. Deconditioning. 9. Gait dysfunction. 10. Mild bilateral venous stasis of the lower extremity. 11. History of nicotine dependence. 1. Slow resolving acute hypoxic respiratory failure secondary to acute exacerbation of chronic obstructive pulmonary disease with bronchospasm. 2. Hypoxemia. 3. 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 4. Hypertension. 5. History of nicotine dependence. 6. Possible pulmonary hypertension with right ventricular systolic pressure of 44 mmHg 7. Acute exacerbation of chronic obstructive pulmonary disease. 8. Hiatal hernia. 1. Acute exacerbation of chronic obstructive pulmonary disease with acute hypoxic respiratory failure . 2. History of advanced chronic obstructive pulmonary disease and emphysema with biapical fibrosis. 3. Large hiatal hernia. 4. Hypertension. 5 History of deep venous thrombosis. 6. Steroid-induced hyperglycemia. 7. Hypoxemia. 8 Acute exacerbation of chronic obstructive pulmonary disease with bronchospasm. 9. History of oral carcinoma, status post surgery. 1. Acute hypoxic respiratory failure secondary to acute exacerbation of chronic obstructive pulmonary disease with wheezing and bronchospasm. 2. Hypoxemia. 3. Leukopenia. 4. Persistent refractory hypoxemia. 5. Advanced chronic obstructive pulmonary disease. 6. History of former nicotine addiction and dependence. 7. Bilateral carotid artery calcification. 8. Bilateral biapical fibrosis scarring and hyperinflation and emphysematous changes. 9. Cholelithiasis with dense peripherally calcified hypodense mass separate from the gallbladder. 10. Large hiatal hernia. 11. Chronic obstructive pulmonary disease, emphysema, and biapical fibrosis scarring. 12. Large hiatal hernia. 13. History of right lower extremity deep vein thrombosis. 14. History of hypertension. 15. Hyperlipidemia. 16. Hypothyroidism. 17. History of hiatal hernia. 18. History of gait dysfunction with the use of rollator. 19. History of advanced chronic obstructive pulmonary disease. 20. History of right total knee replacement. 21. History of right leg squamous cell carcinoma, well-differentiated. 22. History of hepatic carcinoid. 23. History of cerebrovascular accident. 24. History of chronic obstructive pulmonary disease. 25. History of cervical spondylosis. 26. History of oral cancer. 27. History of chronic obstructive pulmonary disease exacerbation. 28. History of abnormal EEG in 2013 suggestive of left posterior temporal dysfunction, possibly suggesting clinical seizure without being diagnostic. 29. History of insomnia. PLAN: At this time; 1. The patient is to be continued on all the medications as per the MAR of today including broad-spectrum IV antibiotics, IV Solu-Medrol. The patient will be continued on Xopenex, Brovana, Mucomyst nebulizer treatment. 2. The patient will be continued on supplemental oxygen as ordered. 3. The patient consultation pulmonary. 4. The patient would be continued on out of bed to chair, IVONE stockings, SCDs, physical therapy, occupational therapy, ambulation therapy, gait training. 5. The patient will be continued to be on TCU till approved number of days as per the TCU criteria and the insurance policies. Dictated and electronically signed, not read. David Johansen MD MTDD
[2018-06-04] MEDS: Levalbuterol 1.25 MG/3 ML Inhal Soln UD IH SCH ×4 (02:05→19:14)
[2018-06-04] MEDS: Acetylcysteine 20% Inhal Soln (4ml) IH SCH ×4 (02:05→19:14)
[2018-06-04] MEDS: MethylPREDNISolone 40 mg Vial IVP SCH ×3 (05:28→21:23)
[2018-06-04] MEDS: Pantoprazole 40 mg EC Tab PO SCH (05:34)
[2018-06-04] MEDS: Enoxaparin 40 mg Syringe SC SCH (05:34)
[2018-06-04] MEDS: cefTRIAXone 2 GM IN NS 2 GM/100 ML BAG IVPB SCH (05:34)
[2018-06-04] MEDS: Levothyroxine 100 MCG TAB PO SCH (05:34)
[2018-06-04] MEDS: Arformoterol 15 mcg/2 ml Inh Sol IH SCH ×2 (07:32→19:14)
[2018-06-04] MEDS: Budesonide 0.5 mg/2 ml Inhal Susp UD IH SCH ×2 (07:32→19:14)
--- NOTE | 2018-06-04 08:52 | PN ---
DATE: 06/04/2018 PULMONARY NOTE SUBJECTIVE: The patient appears comfortable this morning. She is not short of breath at rest. OBJECTIVE: VITAL SIGNS: Temperature is 97.7, pulse 76, respirations 18, blood pressure 168/79. Oxygen saturation on nasal cannula is 98%. HEENT: Normocephalic, atraumatic. NECK: No JVD. CARDIOVASCULAR: Systolic ejection murmur at the lower left sternal border. No S3 gallop. LUNGS: Very minimal/less rhonchi. No wheezing. EXTREMITIES: No clubbing, cyanosis or edema. Calves are nontender to palpation. GASTROINTESTINAL: Abdomen is soft, nontender and nondistended. Bowel sounds are positive. SKIN: No acute rash. NEUROLOGIC: Limited at the present time. IMPRESSION: 1. Acute bronchitis. 2. Advanced chronic obstructive pulmonary disease. 3. Atherosclerotic heart disease. 4. Mild bronchospasm. PLAN: The patient appears very comfortable this morning. She is not short of breath at rest. She does state to feeling much better overall. On physical exam, her bronchospasm continues to slowly resolve. In addition, the alveolar-arterial gradient also continues to resolve. I will continue the current nebulizer treatments and decrease the intravenous steroids this morning. I will continue with the nasal steroids. The patient remains on antibiotic therapy. There are no temperatures noted. Clinical status of the patient is significantly improved - compared to the initial presentation. However, given the above, the future status/prognosis for this elderly patient with advanced lung disease - does remain guarded. I will discuss the above with the attending physician. Riki Charlton MD MTDBri
[2018-06-04] MEDS: Fluticasone Nasal 50 mcg/Spray NS SCH (09:50)
--- NOTE | 2018-06-04 10:06 | CP.PCM.PN ---
Subjective - Date & Time of Evaluation Date of Evaluation: 06/04/18 Time of Evaluation: 10:04 - Subjective Subjective: Podiatry Consult Note: Dr. Kang 88 year old female patient, with PMHx of COPD, Hypothyroidism, HLD, HTN, seen and evaluated in TCU for b/l painful nails; patient admitted for SOB and dry cough. Patient states that she often has pain to her toes when she ambulates in her shoes because of the length of her nails. She notes that she does not follow with a stain remover as an outpatient. She continues to participate in physical therapy daily and is in TCU for further rehabilitation. Denies nausea/vomiting/fever/shortness of breath/chest pain. PMHx: COPD, hypothyroidism, HLD, HTN Allergies: levaquin, albuterol SHx: former tobacco use Objective - Vital Signs/Intake and Output Vital Signs (last 24 hours): Temp Pulse Resp BP Pulse Ox 97.7 F 76 18 168/79 H 98 06/03/18 10:00 06/04/18 05:33 06/03/18 10:00 06/04/18 05:33 06/03/18 10:00 Intake and Output: 06/04/18 06/04/18 06:59 18:59 Intake Total 360 Balance 360 - Medications Medications: Current Medications Acetaminophen (Tylenol 325mg Tab) 650 mg PO Q6H PRN; Protocol PRN Reason: Fever >100.4 F Acetaminophen (Tylenol 650 Mg Supp) 650 mg RC Q6H PRN; Protocol PRN Reason: Fever >100.4 F Acetylcysteine (Acetylcysteine 20%) 4 ml IH [id number] DERICK; Protocol Last Admin: 06/04/18 07:32 Dose: 4 ml Arformoterol Tartrate (Brovana) 15 mcg IH [id number] DERICK Last Admin: 06/04/18 07:32 Dose: 15 mcg Aspirin (Ecotrin) 81 mg PO 0800 DERICK Last Admin: 06/04/18 08:24 Dose: 81 mg Atorvastatin Calcium (Lipitor) 20 mg PO DAILY DERICK Last Admin: 06/03/18 10:23 Dose: 20 mg Benzonatate (Tessalon Perles) 200 mg PO TID DERICK; Protocol Last Admin: 06/04/18 09:43 Dose: 200 mg Budesonide (Pulmicort Respules) 0.5 mg IH [id number] DERICK; Protocol Last Admin: 06/04/18 07:32 Dose: 0.5 mg Clopidogrel Bisulfate (Plavix) 75 mg PO DAILY DERICK; Protocol Last Admin: 06/04/18 09:43 Dose: 75 mg Diltiazem HCl (Cardizem) 30 mg PO 0000,0600,1200,1800 DERICK; Protocol Last Admin: 06/04/18 05:33 Dose: 30 mg Docusate Sodium (Colace) 100 mg PO TID DERICK; Protocol Last Admin: 06/04/18 09:42 Dose: 100 mg Doxycycline Hyclate (Doryx) 100 mg PO Q12 DERICK; Protocol Last Admin: 06/04/18 09:42 Dose: 100 mg Enoxaparin Sodium (Lovenox) 40 mg SC 0600 DERICK; Protocol Last Admin: 06/04/18 05:34 Dose: 40 mg Fluticasone Propionate (Flonase) 1 actuation NS DAILY DERICK; Protocol Last Admin: 06/04/18 09:50 Dose: 1 spray Furosemide (Lasix) 20 mg IVP 0630 [facility] Last Admin: 06/04/18 05:30 Dose: 20 mg Ceftriaxone Sodium (Rocephin 2 Gm Ivpb) 2 gm in 100 mls @ 100 mls/hr IVPB 0600 DERICK; Protocol Last Admin: 06/04/18 05:34 Dose: 100 mls/hr Levalbuterol HCl (Xopenex) 1.25 mg IH [id number] DERICK; Protocol Last Admin: 06/04/18 07:32 Dose: 1.25 mg Levothyroxine Sodium (Synthroid) 100 mcg PO 0600 DERICK Last Admin: 06/04/18 05:34 Dose: 100 mcg Methylprednisolone (Solu-Medrol) 30 mg IVP Q12 DERICK Ondansetron HCl (Zofran Inj) 4 mg IVP Q4H PRN PRN Reason: Nausea/Vomiting Pantoprazole Sodium (Protonix Ec Tab) 40 mg PO 0600 DERICK Last Admin: 06/04/18 05:34 Dose: 40 mg Polyethylene Glycol (Miralax) 17 gm PO BID DERICK; Protocol Last Admin: 06/03/18 17:58 Dose: 17 gm Zolpidem Tartrate (Ambien) 5 mg PO HS PRN; Protocol PRN Reason: Insomnia Last Admin: 06/04/18 00:47 Dose: 5 mg - Constitutional Appears: Non-toxic, No Acute Distress - Head Exam Head Exam: ATRAUMATIC, NORMOCEPHALIC - Extremities Exam Additional comments: Vascular: DP/PT 1/4, TG warm to warm, CFT < 3 seconds. Ortho: Tenderness to palpation of elongated nails, no pain with calf compression, HT deformity appreciated to 2nd digits b/l, HAV deformity to hallux b/l Neuro: Gross sensation intact, protective sensation diminished Derm: Elongated, dystrophic nails to digits bilaterally. No open lesions, no erythema, no clinical signs of infection. Varicosities appreciated - Psychiatric Exam Psychiatric exam: Normal Affect, Normal Mood - Skin Skin Exam: Warm Assessment and Plan - Assessment and Plan (Free Text) Assessment: 88 year old female patient, with PMHx of COPD, Hypothyroidism, HLD, HTN, with b/l painful nails Plan: Patient seen and evaluated with Dr. Kang Nails debrided with a large nail nipper to patient tolerance without incident C/w physical therapy Podiatry to sign off at this time, please reconsult as needed Thank you for the consult and allowing us to partake in the care of this patient
[2018-06-04] MEDS: POLYETHYLENE GLYCOL 3350 17 GM/Dose PACKET PO SCH ×2 (11:40→17:31)
--- NOTE | 2018-06-04 13:28 | PN ---
DATE: 06/04/2018 SUBJECTIVE: The patient is in room 322 bed two. Overnight nurse's notes were reviewed. No adverse events were documented, notified or called for. The patient states that her breathing has significantly improved since the day of hospitalization and since the last week. A 14-system review was done, pertinent positive negative dictated above. PHYSICAL EXAMINATION: VITAL SIGNS: T-max 97.7, heart rate 82, blood pressure 172/81, but other blood pressure readings were in 130 systolic and 140s and diastolic in 70s and 80s. This blood pressure reading of 172/81 is just one time reading. Repeat blood pressure is pending, respiration 18, O2 sat is 98% on oxygen supplementation of 2-3 liters. HEENT: Head examination normocephalic, atraumatic. HEENT examination shows pinkish conjunctivae. Anicteric sclerae. No oropharyngeal lesion. No neck rigidity. CHEST: Kyphosis. LUNGS: Examination shows improved air entry, completely resolved wheezing. Occasional upper anterior lung field rhonchi. No crackles, rales. CARDIOVASCULAR: Shows S1, S2, regular rhythm. Positive systolic murmur left sternal border, right second intercostal space, left second intercostal space. ABDOMEN: Soft. Positive bowel sound, no palpable hepatosplenomegaly. GENITALIA: Female. RECTAL: Deferred. EXTREMITIES: Still shows some trace swelling to 1+ pitting edema. The patient has not been using the IVONE stockings and SCDs. MUSCULOSKELETAL: Examination is as per the body mass index. NEUROLOGIC: The patient is alert, awake, oriented x3. Cranial nerves II-XII intact and limited. Gait examination is not tested. VASCULAR: Examination palpable pulses. PSYCHIATRIC: Examination not applicable. IMPRESSION AND PLAN: 1. Gait dysfunction. 2. Deconditioning. 3. Acute hypoxic respiratory failure secondary to acute exacerbation of chronic obstructive pulmonary disease with bronchospasm and hypoxemia (resolving). 4. Moderate mitral stenosis. 5. Moderate pulmonary hypertension with right ventricular systolic pressure of 44 mmHg. 6. Hypertensive cardiovascular disease with left ventricular hypertrophy and left ventricular ejection fraction of 60%. 7. Hypertension. 8. Bilateral lower extremity venous stasis secondary to possible right-sided diastolic congestive heart failure and moderate pulmonary hypertension and elevated right ventricular systolic pressure of 44 mmHg. 9. Steroid-induced hyperglycemia. 1. Acute hypoxic respiratory failure secondary to acute exacerbation of chronic obstructive pulmonary disease with bronchospasm and hypoxemia (resolved versus resolving). 2. Hypertension. 3. Moderate mitral stenosis. 4. Moderate pulmonary hypertension with right ventricular systolic pressure of 44 mmHg. 5. Hypertensive cardiovascular disease. 6. Left ventricular ejection fraction of 60%. 7. Steroid-induced hyperglycemia. 8. Deconditioning. 9. Gait dysfunction. 10. Mild bilateral venous stasis of the lower extremity. 11. History of nicotine dependence. 1. Slow resolving acute hypoxic respiratory failure secondary to acute exacerbation of chronic obstructive pulmonary disease with bronchospasm. 2. Hypoxemia. 3. 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 4. Hypertension. 5. History of nicotine dependence. 6. Possible pulmonary hypertension with right ventricular systolic pressure of 44 mmHg 7. Acute exacerbation of chronic obstructive pulmonary disease. 8. Hiatal hernia. 1. Acute exacerbation of chronic obstructive pulmonary disease with acute hypoxic respiratory failure . 2. History of advanced chronic obstructive pulmonary disease and emphysema with biapical fibrosis. 3. Large hiatal hernia. 4. Hypertension. 5 History of deep venous thrombosis. 6. Steroid-induced hyperglycemia. 7. Hypoxemia. 8 Acute exacerbation of chronic obstructive pulmonary disease with bronchospasm. 9. History of oral carcinoma, status post surgery. 1. Acute hypoxic respiratory failure secondary to acute exacerbation of chronic obstructive pulmonary disease with wheezing and bronchospasm. 2. Hypoxemia. 3. Leukopenia. 4. Persistent refractory hypoxemia. 5. Advanced chronic obstructive pulmonary disease. 6. History of former nicotine addiction and dependence. 7. Bilateral carotid artery calcification. 8. Bilateral biapical fibrosis scarring and hyperinflation and emphysematous changes. 9. Cholelithiasis with dense peripherally calcified hypodense mass separate from the gallbladder. 10. Large hiatal hernia. 11. Chronic obstructive pulmonary disease, emphysema, and biapical fibrosis scarring. 12. Large hiatal hernia. 13. History of right lower extremity deep vein thrombosis. 14. History of hypertension. 15. Hyperlipidemia. 16. Hypothyroidism. 17. History of hiatal hernia. 18. History of gait dysfunction with the use of rollator. 19. History of advanced chronic obstructive pulmonary disease. 20. History of right total knee replacement. 21. History of right leg squamous cell carcinoma, well-differentiated. 22. History of hepatic carcinoid. 23. History of cerebrovascular accident. 24. History of chronic obstructive pulmonary disease. 25. History of cervical spondylosis. 26. History of oral cancer. 27. History of chronic obstructive pulmonary disease exacerbation. 28. History of abnormal EEG in 2013 suggestive of left posterior temporal dysfunction, possibly suggesting clinical seizure without being diagnostic. 29. History of insomnia. PLAN: At this time, the patient is to be continued on all the therapeutic intervention as per the MAR of today including pharmacological, non-pharmacological GI, DVT prophylaxis. The patient will be continued on bronchodilators. The patient will be continued on Brovana, Pulmicort, Xopenex nebulizer, Mucomyst nebulizer treatments. The patient will be continued on incentive spirometry, chest PT. The patient will be continued on IV steroids. The patient will be continued on broad-spectrum IV antibiotics. The patient will be continued on chest PT, incentive spirometry. The patient will continue on daily out of bed to chair, physical therapy, occupational therapy, ambulation therapy, gait training. I have advised again to the patient about discussing discharge planning with the social media manager and also evaluation for home oxygen which I have also explained to the patient's daughter at the time of admission and during the acute care hospitalization. Dictated and electronically signed, not read. David Johansen MD [facility]
[2018-06-05] MEDS: Acetylcysteine 20% Inhal Soln (4ml) IH SCH ×5 (01:21→20:07)
[2018-06-05] MEDS: Enoxaparin 40 mg Syringe SC SCH (05:20)
[2018-06-05] MEDS: Levothyroxine 100 MCG TAB PO SCH (05:21)
[2018-06-05] MEDS: Pantoprazole 40 mg EC Tab PO SCH (05:21)
[2018-06-05] MEDS: Cefpodoxime (Vantin) 200 mg Tab PO SCH ×2 (05:22→17:38)
[2018-06-05 07:24] LABS: BASO # 0.01 K/mm3 (0.0-2.0); BASO % 0.1 % (0.0-3.0); HEMOGLOBIN 12.2 g/dL (12.0-16.0); LYMPH % 9.8 % (22.0-35.0); MEAN CORPUSCULAR HEMOGLOBIN 30.3 pg (25.0-35.0); MEAN CORPUSCULAR HGB CONC 32.2 g/dl (31.0-37.0); MEAN PLATELET VOLUME 10.3 fl (7.0-11.0); MONO # 0.7 (0.1-0.6); MONO % 7.5 % (1.0-6.0); RBC 4.03 10^6/uL (3.5-6.1); RED CELL DISTRIBUTION WIDTH 13.8 % (11.5-14.5); WHITE BLOOD COUNT 9.7 10^3/uL (4.5-11.0)
[2018-06-05 07:51] LABS: ALB/GLOB RATIO 1.1 (1.1-1.8); ALBUMIN 3.2 g/dL (3.0-4.8); ALT/SGPT 39 U/L (7-56); AST/SGOT 46 U/L (14-36); BILIRUBIN,DIRECT 0.3 mg/dL (0.0-0.4); BLOOD UREA NITROGEN 35 mg/dL (7-21); CALCIUM 9.1 mg/dL (8.4-10.5); GFR NON-AFRICAN AMERICAN 59
[2018-06-05] MEDS: Levalbuterol 1.25 MG/3 ML Inhal Soln UD IH SCH ×3 (07:56→20:04)
[2018-06-05] MEDS: Arformoterol 15 mcg/2 ml Inh Sol IH SCH ×2 (07:56→20:04)
[2018-06-05] MEDS: Budesonide 0.5 mg/2 ml Inhal Susp UD IH SCH ×2 (07:56→20:04)
--- NOTE | 2018-06-05 09:45 | PN ---
DATE: 06/05/2018 PULMONARY NOTE SUBJECTIVE: The patient appears comfortable this morning. She is not short of breath at rest. OBJECTIVE: VITALS: Last temperature recorded 97.5, pulse 76, respirations 18, blood pressure 191/77. Oxygen saturation on nasal cannula is 96%. HEENT: Normocephalic, atraumatic. No JVD. CARDIOVASCULAR: Systolic ejection murmur at the lower left sternal border. No S3 gallop. LUNGS: Minimal/less rhonchi. No wheezing. EXTREMITIES: No clubbing, cyanosis, or edema. Calves are nontender to palpation. GASTROINTESTINAL: Abdomen is soft, nontender, and nondistended. Bowel sounds are positive. SKIN: No acute rash. NEUROLOGIC: Limited at the present time. IMPRESSION: 1. Acute bronchitis. 2. Advanced chronic obstructive pulmonary disease. 3. Atherosclerotic heart disease. 4. Mild bronchospasm. 5. Acute rhinitis. PLAN: The patient appears quite comfortable this morning. She is not short of breath at rest. She does state to feeling much, much better overall. On physical exam, her bronchospasm is slowly resolving. In addition, the alveolar-arterial gradient is also slowly resolving. I will continue with the current nebulizer treatments, and current intravenous steroids (decreased yesterday) for now. The patient also remains on nasal steroids. The patient has also been transitioned to oral antibiotic therapy. There are no temperatures noted. Repeat a.m. labs are pending. Clinical status of the patient is significantly improved - compared to the initial presentation. However, given the above, the future status/prognosis for this elderly patient does remain guarded. I will discuss the above with the attending physician. Riki Charlton MD [facility]
[2018-06-05] MEDS: Fluticasone Nasal 50 mcg/Spray NS SCH (09:58)
[2018-06-05] MEDS: POLYETHYLENE GLYCOL 3350 17 GM/Dose PACKET PO SCH ×2 (09:59→17:37)
[2018-06-05] MEDS: MethylPREDNISolone 40 mg Vial IVP SCH ×2 (09:59→21:18)
--- NOTE | 2018-06-05 11:38 | CP.PCM.PN ---
Subjective - Date & Time of Evaluation Date of Evaluation: 06/05/18 Time of Evaluation: 09:45 - Subjective Subjective: Octavio Cool- Internal Medicine Resident- Progress Note on Behalf of Dr. Johansen Patient seen and examined at bedside. Resting comfortably in bed. Elevated BP noted. Patient states SOB has resolved. Offers no new complaints at this time. Denies fever, chills, chest pain, abdominal pain, nausea, vomiting, diarrhea, constipation, and urinary symptoms. 12-point review of systems negative except as indicated in the HPI Physical Examination: - Constitutional Appears: Non-toxic, No Acute Distress - Head Exam Head Exam: ATRAUMATIC, NORMAL INSPECTION, NORMOCEPHALIC - Eye Exam Eye Exam: EOMI - ENT Exam ENT Exam: Mucous Membranes Moist - Neck Exam Neck exam: Positive for: Full Rom, Normal Inspection - Respiratory Exam Respiratory Exam: normal breathing pattern, absent: Accessory Muscle Use, Chest Wall Tenderness - Cardiovascular Exam Cardiovascular Exam: REGULAR RHYTHM, RRR, +S1, +S2. absent: Bradycardia, Tachycardia, Irregular Rhythm, JVD, +S4 - GI/Abdominal Exam GI & Abdominal Exam: Normal Bowel Sounds, Soft. 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 Patient was transferred to the TCU for further care. COPD exacerbation, PNA - continue doxycycline and vantin - continue xopenox - continue pulmicort and budesonide - continue nacetylcysteine - steroid tapered solumedrol to 30mg IV q12 - atypicals ordered and pending - pulmonology consulted (Dr. Charlton)- appreciate recommendations Elevated RVSP - component from pulmonary hypertension - continue lasix 20mg IV daily with holding parameters Carotid artery stenosis -Continue with home aspirin, plavix and lipitor Hyperlipidemia -Continue with home lipitor Hypothyroidism -Continue with home synthyroid Insomnia - continue ambien Deconditioned State - continue rehabilitation in TCU Prophylaxis - DVT ppx- subq lovenox - GI ppx- pantoprazole Patient case discussed with and plan approved by attending physician, Dr. Johansen. Objective - Vital Signs/Intake and Output Vital Signs (last 24 hours): Temp Pulse Resp BP Pulse Ox 97.5 F L 76 18 191/77 H 96 06/04/18 10:00 06/05/18 05:19 06/04/18 10:00 06/05/18 06:39 06/04/18 10:00 - Medications Medications: Current Medications Acetaminophen (Tylenol 325mg Tab) 650 mg PO Q6H PRN; Protocol PRN Reason: Fever >100.4 F Acetaminophen (Tylenol 650 Mg Supp) 650 mg RC Q6H PRN; Protocol PRN Reason: Fever >100.4 F Acetylcysteine (Acetylcysteine 20%) 4 ml IH [id number] [facility]; Protocol Last Admin: 06/05/18 07:56 Dose: 4 ml Arformoterol Tartrate (Brovana) 15 mcg IH [id number] [facility] Last Admin: 06/05/18 07:56 Dose: 15 mcg Aspirin (Ecotrin) 81 mg PO 0800 [facility] Last Admin: 06/05/18 07:57 Dose: 81 mg Atorvastatin Calcium (Lipitor) 20 mg PO DAILY [facility] Last Admin: 06/05/18 09:58 Dose: 20 mg Benzonatate (Tessalon Perles) 200 mg PO TID [facility]; Protocol Last Admin: 06/05/18 10:00 Dose: 200 mg Budesonide (Pulmicort Respules) 0.5 mg IH [id number] [facility]; Protocol Last Admin: 06/05/18 07:56 Dose: 0.5 mg Cefpodoxime Proxetil (Vantin) 200 mg PO 0600,1800 [facility] Last Admin: 06/05/18 05:22 Dose: 200 mg Clopidogrel Bisulfate (Plavix) 75 mg PO DAILY [facility]; Protocol Last Admin: 06/05/18 09:59 Dose: 75 mg Diltiazem HCl (Cardizem) 30 mg PO 0000,0600,1200,1800 [facility]; Protocol Last Admin: 06/05/18 05:19 Dose: 30 mg Docusate Sodium (Colace) 100 mg PO TID [facility]; Protocol Last Admin: 06/05/18 09:58 Dose: 100 mg Doxycycline Hyclate (Doryx) 100 mg PO Q12 [facility]; Protocol Last Admin: 06/05/18 09:58 Dose: 100 mg Enoxaparin Sodium (Lovenox) 40 mg SC 0600 [facility]; Protocol Last Admin: 06/05/18 05:20 Dose: 40 mg Fluticasone Propionate (Flonase) 1 actuation NS DAILY [facility]; Protocol Last Admin: 06/05/18 09:58 Dose: 1 spray Furosemide (Lasix) 20 mg IVP 0630 [facility] Last Admin: 06/05/18 06:39 Dose: 20 mg Levalbuterol HCl (Xopenex) 1.25 mg IH [id number] [facility]; Protocol Last Admin: 06/05/18 07:56 Dose: 1.25 mg Levothyroxine Sodium (Synthroid) 100 mcg PO 0600 [facility] Last Admin: 06/05/18 05:21 Dose: 100 mcg Methylprednisolone (Solu-Medrol) 30 mg IVP Q12 [facility] Last Admin: 06/05/18 09:59 Dose: 30 mg Ondansetron HCl (Zofran Inj) 4 mg IVP Q4H PRN PRN Reason: Nausea/Vomiting Pantoprazole Sodium (Protonix Ec Tab) 40 mg PO 0600 [facility] Last Admin: 06/05/18 05:21 Dose: 40 mg Polyethylene Glycol (Miralax) 17 gm PO BID [facility]; Protocol Last Admin: 06/05/18 09:59 Dose: 17 gm Zolpidem Tartrate (Ambien) 5 mg PO HS PRN; Protocol PRN Reason: Insomnia Last Admin: 06/04/18 00:47 Dose: 5 mg - Labs Labs: 06/05/18 07:10 06/05/18 07:10
[2018-06-05] MEDS: diltiaZEM 180 mg/24 Hours CD Cap PO SCH (17:37)
--- NOTE | 2018-06-05 19:04 | PN ---
DATE: 06/05/2018 SUBJECTIVE: The patient is seen sitting up in the bed in room 322, bed 1. The patient appears to be comfortable. The patient states that her breathing has significantly improved to almost back to normal, but the patient still requires nasal O2. REVIEW OF SYSTEMS: A 14-system review was done, pertinent positive, negative dictated above. OBJECTIVE: VITAL SIGNS: T-max 97.5, heart rate 76, blood pressure 141/65 and 156/76, respirations 18, and O2 sat 96%. There were couple of occasions when the patient's blood pressure went up to 170 systolic and 180 , but then came down to the above number. GENERAL: The patient is seen and examined, sitting up in the bed. HEENT: Head; normocephalic and atraumatic. HEENT examination shows pink conjunctivae. Anicteric sclerae. No oropharyngeal lesion. NECK: No neck rigidity. CHEST: Kyphosis. LUNGS: Shows much improved and increased breath sounds. No audible wheezing, crackles, or rales. CARDIOVASCULAR: S1 and S2, regular rhythm. Positive systolic murmur left sternal border, left second intercostal space, right second intercostal space. ABDOMEN: Soft. Positive bowel sounds. No palpable hepatosplenomegaly. GENITALIA: Female. RECTAL: Deferred. EXTREMITIES: Today shows no pitting edema since the patient has put on the IVONE stockings. The patient has no pitting edema today. MUSCULOSKELETAL: As per the body mass index reported. NEUROLOGIC: The patient's gait examination is not tested. The patient was able to stand up independently without assistance. Neurologically, there was no deficits noted. DIAGNOSTIC DATA: Including CBC and CMP from today was reviewed.. The patient had a CBC, CMP, and LFTs done today. The patient's chemistry, CBC is within normal limits.. The patient's electrolytes were within normal limits from 06/05/2018. IMPRESSION AND PLAN: 1. Acute exacerbation of chronic obstructive pulmonary disease with acute hypoxic respiratory failure with bronchospasm and hypoxemia. 2. Gait dysfunction. 3. Deconditioning. 4. Pulmonary hypertension. 5. Bilateral lower extremity painful toenails. 6. Moderate mitral stenosis. 7. Moderate pulmonary hypertension with elevated right ventricular systolic pressure of 44 mmHg. 8. Hypertensive cardiovascular disease. 9. Left ventricle ejection fraction of 60%. 10. History of nicotine dependence and addiction. 11. Hypertension. 12. Tachycardia. 13. Bilateral lower extremity venous stasis and varicose veins of the lower extremity. 1. Gait dysfunction. 2. Deconditioning. 3. Acute hypoxic respiratory failure secondary to acute exacerbation of chronic obstructive pulmonary disease with bronchospasm and hypoxemia (resolving). 4. Moderate mitral stenosis. 5. Moderate pulmonary hypertension with right ventricular systolic pressure of 44 mmHg. 6. Hypertensive cardiovascular disease with left ventricular hypertrophy and left ventricular ejection fraction of 60%. 7. Hypertension. 8. Bilateral lower extremity venous stasis secondary to possible right-sided diastolic congestive heart failure and moderate pulmonary hypertension and elevated right ventricular systolic pressure of 44 mmHg. 9. Steroid-induced hyperglycemia. 1. Acute hypoxic respiratory failure secondary to acute exacerbation of chronic obstructive pulmonary disease with bronchospasm and hypoxemia (resolved versus resolving). 2. Hypertension. 3. Moderate mitral stenosis. 4. Moderate pulmonary hypertension with right ventricular systolic pressure of 44 mmHg. 5. Hypertensive cardiovascular disease. 6. Left ventricular ejection fraction of 60%. 7. Steroid-induced hyperglycemia. 8. Deconditioning. 9. Gait dysfunction. 10. Mild bilateral venous stasis of the lower extremity. 11. History of nicotine dependence. 1. Slow resolving acute hypoxic respiratory failure secondary to acute exacerbation of chronic obstructive pulmonary disease with bronchospasm. 2. Hypoxemia. 3. 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 4. Hypertension. 5. History of nicotine dependence. 6. Possible pulmonary hypertension with right ventricular systolic pressure of 44 mmHg 7. Acute exacerbation of chronic obstructive pulmonary disease. 8. Hiatal hernia. 1. Acute exacerbation of chronic obstructive pulmonary disease with acute hypoxic respiratory failure . 2. History of advanced chronic obstructive pulmonary disease and emphysema with biapical fibrosis. 3. Large hiatal hernia. 4. Hypertension. 5 History of deep venous thrombosis. 6. Steroid-induced hyperglycemia. 7. Hypoxemia. 8 Acute exacerbation of chronic obstructive pulmonary disease with bronchospasm. 9. History of oral carcinoma, status post surgery. 1. Acute hypoxic respiratory failure secondary to acute exacerbation of chronic obstructive pulmonary disease with wheezing and bronchospasm. 2. Hypoxemia. 3. Leukopenia. 4. Persistent refractory hypoxemia. 5. Advanced chronic obstructive pulmonary disease. 6. History of former nicotine addiction and dependence. 7. Bilateral carotid artery calcification. 8. Bilateral biapical fibrosis scarring and hyperinflation and emphysematous changes. 9. Cholelithiasis with dense peripherally calcified hypodense mass separate from the gallbladder. 10. Large hiatal hernia. 11. Chronic obstructive pulmonary disease, emphysema, and biapical fibrosis scarring. 12. Large hiatal hernia. 13. History of right lower extremity deep vein thrombosis. 14. History of hypertension. 15. Hyperlipidemia. 16. Hypothyroidism. 17. History of hiatal hernia. 18. History of gait dysfunction with the use of rollator. 19. History of advanced chronic obstructive pulmonary disease. 20. History of right total knee replacement. 21. History of right leg squamous cell carcinoma, well-differentiated. 22. History of hepatic carcinoid. 23. History of cerebrovascular accident. 24. History of chronic obstructive pulmonary disease. 25. History of cervical spondylosis. 26. History of oral cancer. 27. History of chronic obstructive pulmonary disease exacerbation. 28. History of abnormal EEG in 2013 suggestive of left posterior temporal dysfunction, possibly suggesting clinical seizure without being diagnostic. 29. History of insomnia. Plan at this time, the patient will be continued on therapeutic intervention as per the MAR of today. The patient will be continued on all the medications as per the MAR of today. The patient will be continued on daily out of bed to chair, physical therapy, occupational therapy, and ambulation therapy. The patient will be continued on steroids, IV antibiotic, nebulizer medications, and bronchodilators. The patient will continue on daily physical therapy, occupational therapy, ambulation therapy, and gait training. The patient will be continued to be on TCU till approved number of days. The patient was again today re-explained about the details of all her diagnostic test results in layman's language. All questions concerned answered. Dictated and electronically signed, not read. David Johansen MD [facility]
[2018-06-06] MEDS: Levalbuterol 1.25 MG/3 ML Inhal Soln UD IH SCH ×4 (02:50→19:35)
[2018-06-06] MEDS: Acetylcysteine 20% Inhal Soln (4ml) IH SCH ×4 (02:50→19:36)
[2018-06-06] MEDS: Enoxaparin 40 mg Syringe SC SCH (05:50)
[2018-06-06] MEDS: Cefpodoxime (Vantin) 200 mg Tab PO SCH ×2 (05:51→17:36)
[2018-06-06] MEDS: Pantoprazole 40 mg EC Tab PO SCH (05:51)
[2018-06-06] MEDS: Levothyroxine 100 MCG TAB PO SCH (05:51)
[2018-06-06] MEDS: Budesonide 0.5 mg/2 ml Inhal Susp UD IH SCH ×2 (07:33→19:36)
[2018-06-06] MEDS: Arformoterol 15 mcg/2 ml Inh Sol IH SCH ×2 (07:33→19:36)
[2018-06-06] MEDS: diltiaZEM 180 mg/24 Hours CD Cap PO SCH (09:51)
[2018-06-06] MEDS: POLYETHYLENE GLYCOL 3350 17 GM/Dose PACKET PO SCH ×2 (09:51→17:35)
[2018-06-06] MEDS: MethylPREDNISolone 40 mg Vial IVP SCH ×2 (09:52→22:04)
[2018-06-06] MEDS: Fluticasone Nasal 50 mcg/Spray NS SCH (10:09)
--- NOTE | 2018-06-06 20:25 | PN ---
DATE: 06/06/2018 PULMONARY PROGRESS NOTE SUBJECTIVE: There is little change in the patient's status. She is in TCU, recuperating from multiple medical problems. OBJECTIVE: PHYSICAL EXAMINATION: VITAL SIGNS: Stable. The patient is afebrile. Oxygen saturation is good. GENERAL: Remains unchanged. LUNGS: Essentially clear to percussion and auscultation. HEENT: Normocephalic, atraumatic. NECK: There is no jugular venous distention or bruit. CARDIOVASCULAR: Regular rhythm. S1, S2. No murmur, gallop or rub is appreciated. ABDOMEN: Soft. Bowel sounds normoactive without mass, guarding, rebound or organomegaly. EXTREMITIES: Reveal no clubbing, cyanosis or edema. There is no Homans' sign. SKIN: Shows no rash or excoriation. NEUROLOGIC: Abnormal mental status. No focal findings. CLINICAL IMPRESSION: 1. Status post exacerbation of chronic obstructive pulmonary disease. 2. Coronary artery disease. 3. Atherosclerotic heart disease. 4. Status post bronchospasm, resolved. PLAN: Continue vigorous supportive care during her time in the transitional care unit. She will be weaned from supplemental oxygen. Followup will be done as she continues with physical therapy. She is continuing on antibiotics and corticosteroids. We will follow closely with you as required. Alberto Palma MD [facility]
[2018-06-07] MEDS: Levalbuterol 1.25 MG/3 ML Inhal Soln UD IH SCH ×4 (01:38→19:50)
[2018-06-07] MEDS: Acetylcysteine 20% Inhal Soln (4ml) IH SCH ×4 (01:38→19:49)
[2018-06-07] MEDS: Cefpodoxime (Vantin) 200 mg Tab PO SCH ×2 (05:36→17:29)
[2018-06-07] MEDS: Pantoprazole 40 mg EC Tab PO SCH (05:37)
[2018-06-07] MEDS: Enoxaparin 40 mg Syringe SC SCH (05:37)
[2018-06-07] MEDS: Levothyroxine 100 MCG TAB PO SCH (05:37)
[2018-06-07] MEDS: Arformoterol 15 mcg/2 ml Inh Sol IH SCH ×2 (07:33→19:49)
[2018-06-07] MEDS: Budesonide 0.5 mg/2 ml Inhal Susp UD IH SCH ×2 (07:34→19:50)
[2018-06-07] MEDS: diltiaZEM 180 mg/24 Hours CD Cap PO SCH (11:08)
[2018-06-07] MEDS: Fluticasone Nasal 50 mcg/Spray NS SCH (11:09)
[2018-06-07] MEDS: MethylPREDNISolone 40 mg Vial IVP SCH ×2 (11:09→22:28)
[2018-06-07] MEDS: POLYETHYLENE GLYCOL 3350 17 GM/Dose PACKET PO SCH ×2 (11:09→17:29)
[2018-06-08] MEDS: Acetylcysteine 20% Inhal Soln (4ml) IH SCH ×4 (01:39→20:41)
[2018-06-08] MEDS: Cefpodoxime (Vantin) 200 mg Tab PO SCH (06:02)
[2018-06-08] MEDS: Pantoprazole 40 mg EC Tab PO SCH (06:02)
[2018-06-08] MEDS: Enoxaparin 40 mg Syringe SC SCH (06:03)
[2018-06-08] MEDS: Levothyroxine 100 MCG TAB PO SCH (06:03)
[2018-06-08] MEDS: Arformoterol 15 mcg/2 ml Inh Sol IH SCH ×2 (08:45→20:38)
[2018-06-08] MEDS: Levalbuterol 1.25 MG/3 ML Inhal Soln UD IH SCH ×3 (08:45→20:39)
--- NOTE | 2018-06-08 09:02 | PN ---
DATE: 06/06/2018 SUBJECTIVE: The patient is seen in room 322, bed 2. Overnight nurse's notes were reviewed. No adverse events were documented, notified, or called for. The patient states that her breathing is significantly improved since the day of admission. PHYSICAL EXAMINATION VITAL SIGNS: T-max 97.9, heart rate 97, blood pressure 150/80, 132/80 and yesterday blood pressure was 191/77 x1, respiration 18, O2 sat 93% to 96%. HEENT: Head; normocephalic, atraumatic. HEENT examination shows pinkish pale conjunctivae. Anicteric conjunctivae. Anicteric sclerae. No oropharyngeal lesion. NECK: No neck rigidity. CHEST: Kyphosis. CARDIOPULMONARY: S1, S2, regular rhythm. Positive systolic murmur left sternal border, right second intercostal space, left second intercostal space. LUNGS: Improved air entry. Decreased rhonchi. Decreased wheezing. Decreased crackles. ABDOMEN: Soft. Positive bowel sounds. No palpable hepatosplenomegaly. GENITALIA: Female. RECTAL: Deferred. EXTREMITIES: Positive IVONE stockings. MUSCULOSKELETAL: As per the body mass index. NEUROLOGIC: The patient is alert, awake, responsive, is able to move upper and lower extremity without assistance. Without any gross deficit. GAIT: As per physical therapist. LABORATORY DATA: WBC 9.7, hemoglobin/hematocrit 12.2 and 37.90, platelet 191, 83% segs. Sodium 140, potassium 4.8, chloride 100, CO2 of 37, BUN 35, creatinine 0.9, glucose 120, calcium 9.1, phosphorus 4.2, magnesium 2.0, AST 46. IMPRESSION: 1. Acute hypoxic respiratory failure secondary to acute exacerbation of chronic obstructive pulmonary disease with bronchospasm and hypoxemia. 2. Transient uncontrolled hypertension. 3. Right-sided diastolic congestive heart failure. 4. Moderate mitral stenosis. 5. Moderate pulmonary hypertension with right ventricular systolic pressure of 44 mmHg. 6. Hypertensive cardiovascular disease with left ventricular ejection fraction of 60%. 7. Hypoxemia. 8. Questionable transaminitis with elevated AST. 9. Gait dysfunction. 10. Deconditioning. 11. Bilateral lower extremity varicose veins and venous stasis secondary to pulmonary hypertension. 1. Acute exacerbation of chronic obstructive pulmonary disease with acute hypoxic respiratory failure with bronchospasm and hypoxemia. 2. Gait dysfunction. 3. Deconditioning. 4. Pulmonary hypertension. 5. Bilateral lower extremity painful toenails. 6. Moderate mitral stenosis. 7. Moderate pulmonary hypertension with elevated right ventricular systolic pressure of 44 mmHg. 8. Hypertensive cardiovascular disease. 9. Left ventricle ejection fraction of 60%. 10. History of nicotine dependence and addiction. 11. Hypertension. 12. Tachycardia. 13. Bilateral lower extremity venous stasis and varicose veins of the lower extremity. 1. Gait dysfunction. 2. Deconditioning. 3. Acute hypoxic respiratory failure secondary to acute exacerbation of chronic obstructive pulmonary disease with bronchospasm and hypoxemia (resolving). 4. Moderate mitral stenosis. 5. Moderate pulmonary hypertension with right ventricular systolic pressure of 44 mmHg. 6. Hypertensive cardiovascular disease with left ventricular hypertrophy and left ventricular ejection fraction of 60%. 7. Hypertension. 8. Bilateral lower extremity venous stasis secondary to possible right-sided diastolic congestive heart failure and moderate pulmonary hypertension and elevated right ventricular systolic pressure of 44 mmHg. 9. Steroid-induced hyperglycemia. 1. Acute hypoxic respiratory failure secondary to acute exacerbation of chronic obstructive pulmonary disease with bronchospasm and hypoxemia (resolved versus resolving). 2. Hypertension. 3. Moderate mitral stenosis. 4. Moderate pulmonary hypertension with right ventricular systolic pressure of 44 mmHg. 5. Hypertensive cardiovascular disease. 6. Left ventricular ejection fraction of 60%. 7. Steroid-induced hyperglycemia. 8. Deconditioning. 9. Gait dysfunction. 10. Mild bilateral venous stasis of the lower extremity. 11. History of nicotine dependence. 1. Slow resolving acute hypoxic respiratory failure secondary to acute exacerbation of chronic obstructive pulmonary disease with bronchospasm. 2. Hypoxemia. 3. 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 4. Hypertension. 5. History of nicotine dependence. 6. Possible pulmonary hypertension with right ventricular systolic pressure of 44 mmHg 7. Acute exacerbation of chronic obstructive pulmonary disease. 8. Hiatal hernia. 1. Acute exacerbation of chronic obstructive pulmonary disease with acute hypoxic respiratory failure . 2. History of advanced chronic obstructive pulmonary disease and emphysema with biapical fibrosis. 3. Large hiatal hernia. 4. Hypertension. 5 History of deep venous thrombosis. 6. Steroid-induced hyperglycemia. 7. Hypoxemia. 8 Acute exacerbation of chronic obstructive pulmonary disease with bronchospasm. 9. History of oral carcinoma, status post surgery. 1. Acute hypoxic respiratory failure secondary to acute exacerbation of chronic obstructive pulmonary disease with wheezing and bronchospasm. 2. Hypoxemia. 3. Leukopenia. 4. Persistent refractory hypoxemia. 5. Advanced chronic obstructive pulmonary disease. 6. History of former nicotine addiction and dependence. 7. Bilateral carotid artery calcification. 8. Bilateral biapical fibrosis scarring and hyperinflation and emphysematous changes. 9. Cholelithiasis with dense peripherally calcified hypodense mass separate from the gallbladder. 10. Large hiatal hernia. 11. Chronic obstructive pulmonary disease, emphysema, and biapical fibrosis scarring. 12. Large hiatal hernia. 13. History of right lower extremity deep vein thrombosis. 14. History of hypertension. 15. Hyperlipidemia. 16. Hypothyroidism. 17. History of hiatal hernia. 18. History of gait dysfunction with the use of rollator. 19. History of advanced chronic obstructive pulmonary disease. 20. History of right total knee replacement. 21. History of right leg squamous cell carcinoma, well-differentiated. 22. History of hepatic carcinoid. 23. History of cerebrovascular accident. 24. History of chronic obstructive pulmonary disease. 25. History of cervical spondylosis. 26. History of oral cancer. 27. History of chronic obstructive pulmonary disease exacerbation. 28. History of abnormal EEG in 2013 suggestive of left posterior temporal dysfunction, possibly suggesting clinical seizure without being diagnostic. 29. History of insomnia. PLAN: At this time; 1. The patient is to be continued on all the therapeutic intervention as per the MAR of today. 2. The patient will continue on TCU stay till approved number of days. 3. The patient will continue on daily physical therapy, occupational therapy, ambulation therapy, gait training. 4. The patient will be followed up by Pulmonary and Podiatry. Dictated and electronically signed, not read. David Johansen MD [facility]
--- NOTE | 2018-06-08 09:30 | PN ---
DATE: 06/08/2018 SUBJECTIVE: The patient appears quite comfortable this morning. She is not short of breath at rest. OBJECTIVE: VITAL SIGNS: Temperature is 98, pulse 70, respirations 18, blood pressure 141/93. Oxygen saturation on nasal cannula is 95%. HEENT: Normocephalic, atraumatic. No JVD. CARDIOVASCULAR: Systolic ejection murmur at the lower left sternal border. No S3 gallop. LUNGS: Clear bilaterally this morning. EXTREMITIES: No clubbing, cyanosis or edema. Calves are nontender to palpation. GASTROINTESTINAL: Abdomen is soft, nontender and nondistended. Bowel sounds are positive. SKIN: No acute rash. NEUROLOGIC: Exam limited at the present time. IMPRESSION: 1. Acute bronchitis. 2. Advanced chronic obstructive pulmonary disease. 3. Atherosclerotic heart disease. 4. Mild bronchospasm. 5. Acute rhinitis. PLAN: The patient appears very comfortable this morning. She is not short of breath at rest. She does state to feeling much, much better overall. On physical exam, her lungs are now clear. In addition, there is no significant alveolar-arterial gradient. I will continue the current nebulizer treatments and change to oral steroids this morning.. I will also continue with the nasal steroids. The patient is now off antibiotic therapy. There are no temperatures noted. There is no leukocytosis. Clinical status of the patient is significantly improved - compared to the initial presentation. However, given the above, the future status/prognosis of this patient does remain guarded. I will discuss the above with the attending physician. Riki Charlton MD [facility]
[2018-06-08] MEDS: Fluticasone Nasal 50 mcg/Spray NS SCH (10:14)
[2018-06-08] MEDS: diltiaZEM 180 mg/24 Hours CD Cap PO SCH (10:14)
[2018-06-08] MEDS: POLYETHYLENE GLYCOL 3350 17 GM/Dose PACKET PO SCH ×2 (10:15→17:56)
--- NOTE | 2018-06-08 11:44 | PN ---
DATE: 06/08/2018 SUBJECTIVE: The patient is in [facility] in [place], Transitional Care Unit, room 322, bed 2. The patient is seen this morning, sitting up eating her breakfast. She is much more comfortable according to the history. The patient presented with shortness of breath and cough. The patient had respiratory distress. The patient has past history of chronic lung disease, bronchiectasis. The patient has history of recurrent bronchitis. Because of past history of hypertension, cerebrovascular disease, the patient has history of lumbar neuritis, osteoarthritis. 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 The patient has evaluation and treatment of solitary carcinoid of the liver at [facility] and she has been cleared by them after several years of treatment. PHYSICAL EXAMINATION: GENERAL: The patient appears comfortable. VITAL SIGNS: This morning, pulse is 70, blood pressure is 140/90. The patient's respirations are 18 per minute. HEENT: Head is normocephalic. LUNGS: Trachea is central. Breath sounds are vesicular. Breath sounds are diminished bilaterally. HEART: Normal sinus rhythm. Normal sinus rate. ABDOMEN: Soft. Liver and spleen not palpable. CENTRAL NERVOUS SYSTEM: The patient has no focal deficit at this time. She has been treated for transient ischemic episode in the past. MEDICATIONS: The list of medications, she is on Mucomyst. She is on Ambien for sleep. She is on Brovana 50 mcg every 12 hours for respiratory treatment, p.o. daily. The patient is on Colace 100 mg t.i.d., aspirin 81 mg daily. The patient is on Flonase daily. The patient is on Lasix 20 mg every 12 hours, Lipitor 20 mg daily, Lovenox 40 mg subcutaneously daily for prophylaxis. The patient is on Plavix 75 mg daily for TIA and cerebrovascular disease. The patient is on prednisone 30 mg daily at this time, pantoprazole 40 mg daily, Pulmicort 0.5 mg every 12 hours. The patient takes Synthroid 100 mcg daily, Tessalon Perles for cough. The patient gets albuterol for bronchodilator and oxygen as needed. The patient's oxygenation has improved with treatment. LABORATORY DATA: The patient's lab findings, hemoglobin 12.2, white count within normal range, shift to the left on the neutrophil count. The patient's chemistry, sugar is 120. The patient's BUN is 35, creatinine 0.9. The patient's liver functions are pretty much normal. The patient is more comfortable and recuperating in the Transitional Care Unit with followup with the treatment. PLAN: Possible discharged by Friday. Herb Chan MD
[2018-06-08] MEDS: Budesonide 0.5 mg/2 ml Inhal Susp UD IH SCH (20:39)
[2018-06-09] MEDS: Levalbuterol 1.25 MG/3 ML Inhal Soln UD IH SCH ×4 (01:39→21:30)
[2018-06-09] MEDS: Acetylcysteine 20% Inhal Soln (4ml) IH SCH ×4 (01:39→21:30)
[2018-06-09] MEDS: Levothyroxine 100 MCG TAB PO SCH (05:46)
[2018-06-09] MEDS: Enoxaparin 40 mg Syringe SC SCH (05:46)
[2018-06-09] MEDS: Pantoprazole 40 mg EC Tab PO SCH (05:47)
[2018-06-09] MEDS: Budesonide 0.5 mg/2 ml Inhal Susp UD IH SCH ×2 (07:28→21:30)
[2018-06-09] MEDS: Arformoterol 15 mcg/2 ml Inh Sol IH SCH ×2 (07:28→21:30)
--- NOTE | 2018-06-09 08:04 | CP.PCM.PN ---
Subjective - Date & Time of Evaluation Date of Evaluation: 06/09/18 Time of Evaluation: 07:45 - Subjective Subjective: Patient is seen this morning. She is feeling better, but continues to complain of cough. She also complains of nasal congestion. Objective - Vital Signs/Intake and Output Vital Signs (last 24 hours): Temp Pulse Resp BP Pulse Ox 97.7 F 84 16 121/68 97 06/08/18 10:00 06/08/18 10:14 06/08/18 10:00 06/09/18 05:47 06/08/18 10:00 - Medications Medications: Current Medications Acetaminophen (Tylenol 325mg Tab) 650 mg PO Q6H PRN; Protocol PRN Reason: Fever >100.4 F Acetaminophen (Tylenol 650 Mg Supp) 650 mg RC Q6H PRN; Protocol PRN Reason: Fever >100.4 F Acetylcysteine (Acetylcysteine 20%) 4 ml IH [id number]; Protocol Last Admin: 06/09/18 07:39 Dose: 4 ml Arformoterol Tartrate (Brovana) 15 mcg IH [id number] [facility] Last Admin: 06/09/18 07:28 Dose: 15 mcg Aspirin (Ecotrin) 81 mg PO 0800 [facility] Last Admin: 06/08/18 08:01 Dose: 81 mg Atorvastatin Calcium (Lipitor) 20 mg PO DAILY [facility] Last Admin: 06/08/18 10:14 Dose: 20 mg Benzonatate (Tessalon Perles) 200 mg PO TID [facility]; Protocol Last Admin: 06/08/18 17:54 Dose: 200 mg Budesonide (Pulmicort Respules) 0.5 mg IH [id number] [facility]; Protocol Last Admin: 06/09/18 07:28 Dose: 0.5 mg Clopidogrel Bisulfate (Plavix) 75 mg PO DAILY [facility]; Protocol Last Admin: 06/08/18 10:15 Dose: 75 mg Diltiazem HCl (Cardizem Cd) 180 mg PO DAILY [facility] Last Admin: 06/08/18 10:14 Dose: 180 mg Docusate Sodium (Colace) 100 mg PO TID [facility]; Protocol Last Admin: 06/08/18 17:53 Dose: 100 mg Enoxaparin Sodium (Lovenox) 40 mg SC 0600 [facility]; Protocol Last Admin: 06/09/18 05:46 Dose: 40 mg Fluticasone Propionate (Flonase) 1 actuation NS DAILY [facility]; Protocol Last Admin: 06/08/18 10:14 Dose: 2 spray Furosemide (Lasix) 20 mg IVP Q12H [facility] Last Admin: 06/09/18 05:47 Dose: 20 mg Levalbuterol HCl (Xopenex) 1.25 mg IH [id number] [facility]; Protocol Last Admin: 06/09/18 07:28 Dose: 1.25 mg Levothyroxine Sodium (Synthroid) 100 mcg PO 0600 [facility] Last Admin: 06/09/18 05:46 Dose: 100 mcg Ondansetron HCl (Zofran Inj) 4 mg IVP Q4H PRN PRN Reason: Nausea/Vomiting Pantoprazole Sodium (Protonix Ec Tab) 40 mg PO 0600 [facility] Last Admin: 06/09/18 05:47 Dose: 40 mg Polyethylene Glycol (Miralax) 17 gm PO BID [facility]; Protocol Last Admin: 06/08/18 17:56 Dose: 17 gm Prednisone (Prednisone Tab) 30 mg PO DAILY [facility] Last Admin: 06/08/18 10:15 Dose: 30 mg Zolpidem Tartrate (Ambien) 5 mg PO HS PRN; Protocol PRN Reason: Insomnia Last Admin: 06/08/18 22:58 Dose: 5 mg - Labs Labs: 06/05/18 07:10 06/05/18 07:10 - Constitutional Appears: No Acute Distress - Head Exam Head Exam: ATRAUMATIC, NORMOCEPHALIC - Respiratory Exam Respiratory Exam: Clear to Ausculation Bilateral, NORMAL BREATHING PATTERN - Cardiovascular Exam Cardiovascular Exam: REGULAR RHYTHM, +S1, +S2 - GI/Abdominal Exam GI & Abdominal Exam: Soft, Normal Bowel Sounds. absent: Tenderness - Extremities Exam Additional comments: trace pedal edema right foot - Neurological Exam Neurological Exam: Alert, Awake, CN II-XII Intact, Oriented x3 Assessment and Plan - Assessment and Plan (Free Text) Assessment: Acute Bronchitis Advanced COPD Allergic Rhinitis Arthritis CVD Hypothyroidism Plan: Patient is overall improved, but complains of cough. continue nebulizer treatments and mucomyst. Steroids have been switched from IV to oral prednisone. Lungs are clear. continue Tessalon for cough. continue Flonase for allergic rhinitis. continue PT.
--- NOTE | 2018-06-09 09:57 | PN ---
DATE: 06/09/2018 PULMONARY NOTE SUBJECTIVE: The patient appears quite comfortable this morning. She is not short of breath at rest. OBJECTIVE: VITAL SIGNS: (Last noted in the computer): Temperature is 97.7, pulse 84, respirations 16/18, blood pressure 121/68. Oxygen saturation on nasal cannula - 97%. HEENT: Normocephalic, atraumatic. NECK: No JVD. CARDIOVASCULAR: Systolic ejection murmur at the lower left sternal border. No S3 gallop. LUNGS: Clear bilaterally. EXTREMITIES: No clubbing, cyanosis or edema. Calves are nontender to palpation. GASTROINTESTINAL: Abdomen is soft, nontender and nondistended. Bowel sounds are positive. SKIN: No acute rash. NEUROLOGIC: Limited at the present time. IMPRESSION: 1. Acute bronchitis. 2. Advanced chronic obstructive pulmonary disease. 3. Atherosclerotic heart disease. 4. Mild bronchospasm - resolved. 5. Acute rhinitis. PLAN: The patient appears very comfortable this morning. She is not short of breath at rest. She does state to feeling much better overall. On physical exam, her lungs remain clear. In addition, there is no significant alveolar-arterial gradient. I will continue with the current nebulizer treatments and oral steroids (changed yesterday) for now. The patient also remains on nasal steroids. Clinical status of the patient is significantly improved - compared to last week. However, given the above, the future status/prognosis for this elderly patient does remain guarded. I will discuss the above with the attending physician. Riki Charlton MD MTDD
[2018-06-09] MEDS: Fluticasone Nasal 50 mcg/Spray NS SCH (10:15)
[2018-06-09] MEDS: diltiaZEM 180 mg/24 Hours CD Cap PO SCH (10:15)
[2018-06-09] MEDS: POLYETHYLENE GLYCOL 3350 17 GM/Dose PACKET PO SCH ×2 (10:16→17:51)
[2018-06-09 16:50] VITALS: RESP 20; TEMP 98.2; O2SAT 94
[2018-06-10] MEDS: Acetylcysteine 20% Inhal Soln (4ml) IH SCH ×3 (02:30→13:08)
[2018-06-10] MEDS: Levalbuterol 1.25 MG/3 ML Inhal Soln UD IH SCH ×3 (02:30→13:08)
[2018-06-10] MEDS: Enoxaparin 40 mg Syringe SC SCH (05:46)
[2018-06-10] MEDS: Pantoprazole 40 mg EC Tab PO SCH (05:46)
[2018-06-10] MEDS: Levothyroxine 100 MCG TAB PO SCH (05:47)
[2018-06-10 05:54] VITALS: BP 121/60
[2018-06-10] MEDS: Arformoterol 15 mcg/2 ml Inh Sol IH SCH (07:35)
[2018-06-10] MEDS: Budesonide 0.5 mg/2 ml Inhal Susp UD IH SCH (07:36)
[2018-06-10] MEDS: Fluticasone Nasal 50 mcg/Spray NS SCH (09:55)
[2018-06-10] MEDS: diltiaZEM 180 mg/24 Hours CD Cap PO SCH (09:55)
[2018-06-10] MEDS: POLYETHYLENE GLYCOL 3350 17 GM/Dose PACKET PO SCH (09:56)
[2018-06-10 10:01] VITALS: PULSE 70
--- NOTE | 2018-06-10 10:50 | PN ---
DATE: 06/10/2018 SUBJECTIVE: The patient is in the Transitional Care Unit, room 327, bed 2. The patient was seen this morning. This is a discharge date, the patient was admitted with exacerbation of chronic obstructive lung disease, bronchiectasis, acute bronchitis. The patient has past history of bronchiectasis as mentioned before. The patient has history of recurrent pulmonary infection. The patient has history of cerebrovascular disease, peripheral vascular disease, lumbar neuritis. She has history of hypertension, hyperlipidemia, TIA. The patient has been treated for solitary carcinoid of the liver. She has been cleared by [facility]. This patient also was treated for oral cancer. The patient has cleared that condition to. She is seen this morning. She seems to be comfortable, has a chronic cough. PHYSICAL EXAMINATION GENERAL: The patient is lying down comfortably and she is getting respiratory treatment. VITAL SIGNS: The patient's pulse is 77, blood pressure , respirations are 20 per minute, and O2 sat is 94% on room air. LUNGS: Bilateral crepitations and rhonchi scattered. HEART: Normal sinus rhythm. S1 and S2 present. No murmurs. ABDOMEN: Soft. Liver and spleen not palpable. CENTRAL NERVOUS SYSTEM: The patient has no focal deficit noted on examination, but she does have neurovascular condition established. MEDICATIONS: On discharge, she will be given Brovana. She will be on bronchodilator. The patient is on Flonase. She is on Lasix 20 mg p.o. daily. The patient is on Cardizem 180 mg p.o. daily. The patient is on Lipitor 20 mg daily. The patient will not be on Lovenox post discharge. The patient is going to be on Plavix 75 mg daily, prednisone 10 mg b.i.d. that will be the dose, and the patient will be on pantoprazole 40 mg daily, Synthroid 100 mcg daily, Pulmicort 0.5 mg every 12 hours. For bronchodilator use levalbuterol, which is Xopenex that she will take every 6 hours. Diet will be heart-healthy diet, 2 gram sodium. LABORATORY DATA: The patient's recent blood work; hemoglobin 12.2, white count 9700, the differential shows some shift to the left. The patient has chronic pulmonary . The chemistry; the patient's last chemistry shows the patient's BUN and creatinine within normal range and sugar was 120. The patient's liver functions are within normal range. ASSESSMENT AND PLAN: The patient's overall condition is improved. Prognosis is guarded. We will continue care for the patient. She will be returning to the office in one week to adjust the prednisone dose. She will continue all her medications and prescription was given per the prednisone and Lasix. All other medications will be as she has it at home. If she needs any medicines, she can call [facility], there will be in touch with us. Herb Chan MD
--- NOTE | 2018-06-10 11:13 | PN ---
DATE: 06/10/2018 PULMONARY NOTE SUBJECTIVE: The patient appears very comfortable this morning. She is not short of breath at rest. OBJECTIVE: VITAL SIGNS: Temperature is 98.2, pulse is 80, respirations 18, blood pressure 121/60. Oxygen saturation on room air is 94%. HEENT: Normocephalic, atraumatic. NECK: No JVD. CARDIOVASCULAR: Systolic ejection murmur at the lower left sternal border. No S3 gallop. LUNGS: Clear bilaterally. EXTREMITIES: No clubbing, cyanosis or edema. Calves are nontender to palpation. GASTROINTESTINAL: Abdomen is soft, nontender and nondistended. Bowel sounds are positive. SKIN: No acute rash. NEUROLOGIC: Limited at the present time. IMPRESSION: 1. Acute bronchitis. 2. Advanced chronic obstructive pulmonary disease. 3. Atherosclerotic heart disease. 4. Mild bronchospasm - resolved. 5. Acute rhinitis. PLAN: The patient appears very comfortable this morning. She is not short of breath at rest. She does state to feeling much, much better overall. On physical exam, her lungs remain clear. In addition, there is no significant alveolar-arterial gradient. I will continue the current nebulizer treatments and decrease the oral steroids this morning. I will also continue with the nasal steroids. Clinical status of the patient is significantly improved overall. However, given the above, the future status/prognosis for this patient does remain guarded. The patient is for discharge in the near future. I will discuss the above the attending physician. Riki Charlton MD MTDD
--- NOTE | 2018-06-11 01:01 | DS ---
HISTORY OF PRESENT ILLNESS: This is an 88-year-old female with history of hypertension, hypothyroidism, severe peripheral vascular disease, osteoarthritis, advanced COPD, carcinoid of the liver, who presented to the emergency room with acute bronchitis. The patient was admitted to the acute medical floor and treated with an IV antibiotics, IV Solu-Medrol, and respiratory treatments. The patient was then transferred to the Transitional Care Unit for a tapering of steroids, completion of antibiotic therapy, and for physical therapy for her deconditioning. While in the Transitional Care Unit, the patient participated in physical therapy. She was seen by Pulmonary, Dr. Palma and Dr. Charlton. The patient's condition improved. Steroids were tapered. The patient is discharged home in improved condition. DISCHARGE DIAGNOSES: Acute bronchitis, advanced chronic obstructive pulmonary disease, hypertension, hyperlipidemia, carcinoid of the liver, severe osteoarthritis. DISCHARGE MEDICATIONS: Ambien 5 mg at night as needed for insomnia, Bystolic 2.5 mg daily, aspirin 81 mg daily, Lipitor 20 mg daily, Plavix 75 mg daily, Synthroid 100 mcg daily, Lasix 20 mg daily, prednisone 10 mg twice a day, Pulmicort every 12 hours, Tessalon 100 mg 3 times a day as needed for cough, Xopenex 1.25 mg every 6 hours p.r.n. Scripts were given for Lasix and prednisone. The patient has other medications at home. FOLLOWUP: The patient will be followed up in the office in 1 week. Dean Chan MD
== END 2018-06-10 14:23 | disposition home or self-care (01) | DRG 91 ==
LOC: TRCU 16:18
PROVIDERS: ADMIT Internal Medicine; ATTEND Internal Medicine
PROC: F07Z9FZ Gait Training/Functional Ambulation Treatment using Assistive, Adaptive, Supportive or Protective Equipment (ICD-10-PCS; principal; 2018-06-04)
PROC: F07Z8ZZ Transfer Training Treatment (ICD-10-PCS; 2018-06-04)
PROC: F07L6YZ Therapeutic Exercise Treatment of Musculoskeletal System - Lower Back / Lower Extremity using Other Equipment (ICD-10-PCS; 2018-06-04)
PROC: F08Z1FZ Dressing Techniques Treatment using Assistive, Adaptive, Supportive or Protective Equipment (ICD-10-PCS; 2018-06-04)
PROC: F08Z2FZ Grooming/Personal Hygiene Treatment using Assistive, Adaptive, Supportive or Protective Equipment (ICD-10-PCS; 2018-06-04)
PROC: 0HBRXZZ Excision of Toe Nail, External Approach (ICD-10-PCS; 2018-06-04)
DX: R26.9 Unspecified abnormalities of gait and mobility (principal); J18.9 Pneumonia, unspecified organism; J44.0 Chronic obstructive pulmonary disease with (acute) lower respiratory infection; J44.1 Chronic obstructive pulmonary disease with (acute) exacerbation; I50.30 Unspecified diastolic (congestive) heart failure; J20.9 Acute bronchitis, unspecified; I11.0 Hypertensive heart disease with heart failure; I27.20 Pulmonary hypertension, unspecified; I65.29 Occlusion and stenosis of unspecified carotid artery; E03.9 Hypothyroidism, unspecified; G47.00 Insomnia, unspecified; G30.9 Alzheimer's disease, unspecified; F02.80 Dementia in other diseases classified elsewhere, unspecified severity, without behavioral disturbance, psychotic disturbance, mood disturbance, and anxiety; M54.16 Radiculopathy, lumbar region; I67.9 Cerebrovascular disease, unspecified; E78.5 Hyperlipidemia, unspecified; I05.0 Rheumatic mitral stenosis; E78.00 Pure hypercholesterolemia, unspecified; I25.10 Atherosclerotic heart disease of native coronary artery without angina pectoris; L60.3 Nail dystrophy; M19.90 Unspecified osteoarthritis, unspecified site; I73.9 Peripheral vascular disease, unspecified; K44.9 Diaphragmatic hernia without obstruction or gangrene; I83.12 Varicose veins of left lower extremity with inflammation; I83.11 Varicose veins of right lower extremity with inflammation; Z66 Do not resuscitate; Z85.819 Personal history of malignant neoplasm of unspecified site of lip, oral cavity, and pharynx; Z87.891 Personal history of nicotine dependence; Z86.718 Personal history of other venous thrombosis and embolism